=== PATIENT | male | born 1955 | race Caucasian/White ===

== ENCOUNTER 2018-08-03 09:00 | Outpatient (RCR) | payer OTHER, SELFPAY ==
--- NOTE | 2018-05-25 09:33 | HP.PTEVAL_ITS ---
Patient's Visit Information MEG ALEXIS is a 63 year old M referred to Physical Therapy by Bartolo Grewal MD with a diagnosis of . Date of Evaluation: 05/25/18 Physical Therapist: Macy Pierre DPT - Visit Plan Frequency: 2x /Week Duration: 4 Weeks Plan: Ultrasound to shaft of the tibia- exercise for stretching and strengthening for functional mobility - Subjective Findings: Patient reports that he fell on May 07, 2018- fell on uneven surface- went down on his left knee- bruise on the knee- no broken bone- went to [facility]- nothing structural but pt was necessary. Feels the knee is getting better. Pain is located distal to the patella - and does radiaate to the mid velázquez when he is on his feet. Uses one crutch but does go without but uses it intermittently. Moving more towards not moving it. Worst: 2/10 Agg: being up on his feet, getting in/out of the car, movement. Best: 0/10 Eases: ice, rest, Tylenol. Describes the pain as dull and achy. Sleep: not disturbed. 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 Does have slight neuropathy but no changes since the fall. No injections. Had rehab a few years ago on the knee but it got better than. PMHx: HTN Meds: Metaprolol, Vialta. - Objective Posture: FH, RS, Increased kyphosis. Gait: antalgic- decrease stance on the left LE- uses an axillary crutch on the right side. Poor heel/toe pattern. Stairs: asc/desc 8 recip with 2 HR- reports pain with descent. When asc and desc when he picks up his left foot he has increased PF with inversion. HR/TR: HR unable unless UE A and knees bent then can only perform 25% of normal bilaterally. TR: unable. SLS: WS but unable to SLS without UE A. Palpation: tender along shaft of the tibia. ROM: Knee: 0-120 degrees Ankle: PF/Inv/Ev: WFL DF: neutral. Strength: Ankle: 4/5 in available range, Knee: 4+/5, Hip: 4/5 Core: fair. Flex: HS: severe, Gastroc: Severe. Soleus: severe - Goals Goal 1:: Patient will be I with HEP and progression Goal Time Frame: 4-6 Weeks Goal 2:: Patient will ambulate >300 feet with a normalized gait pattern and no AD Goal Time Frame: 4-6 Weeks Goal 3:: Patient will demo moderate flexibility in his gastroc/soleus complex Goal Time Frame: 4-6 Weeks Goal 4:: Patient will report 0/10 pain for 1 week Goal Time Frame: 4-6 Weeks Goal 5:: Patient will asc/desc 8 stairs recip with 1 HR and good control Goal Time Frame: 4-6 Weeks - Rehabilitation Potential Physical Therapy Diagnosis: Patient presents with hypomobility- he has decreased strength, flexibility and muscular endurnace after a fall leading to increase pain with ADL's Rehabilitation Potential: Fair - Anticipated Interventions Patient/Client Instruction: Educate patient on: Benefits of Fitness Program Therapeutic Exercise to Include: Strength training, Endurance training, Agility training, Body mechanics, Postural training, Flexibilty training, Gait and locomotor training, Dynamic Lumbar Stabilization For the Purpose of:: To improve muscle performance and motor function TENS: Yes Cryotherapy (ice pack, ice massage): Yes Thermo therapy (hot pack): Yes Ultrasound (thermal/non thermal): Yes For the Purpose of:: To decrease pain Thank you for the opportunity to evaluate your patient. For Medicare and Medicare HMO plans, please review the plan of care and approve it. It will need to be FAXED BACK to us at [phone] for Medicare purposes. For Medicare only, by signing this I certify the plan of care. Please let me know if there are questions or concerns regarding this plan of care. Physician Signature: Date:____
--- NOTE | 2018-07-03 09:19 | HP.PTEVAL_ITS ---
Patient's Visit Information MEG ALEXIS is a 63 year old M referred to Physical Therapy by Bartolo Grewal MD with a diagnosis of . Date of Evaluation: 05/25/18 Physical Therapist: Macy Pierre DPT - Visit Plan Frequency: 2x /Week Duration: 4 Weeks Plan: Ultrasound to shaft of the tibia- exercise for stretching and strengthening for functional mobility - Subjective Findings: Patient reports that he fell on May 07, 2018- fell on uneven surface- went down on his left knee- bruise on the knee- no broken bone- went to [facility]- nothing structural but pt was necessary. Feels the knee is getting better. Pain is located distal to the patella - and does radiaate to the mid velázquez when he is on his feet. Uses one crutch but does go without but uses it intermittently. Moving more towards not moving it. Worst: 2/10 Agg: being up on his feet, getting in/out of the car, movement. Best: 0/10 Eases: ice, rest, Tylenol. Describes the pain as dull and achy. Sleep: not disturbed. 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 Does have slight neuropathy but no changes since the fall. No injections. Had rehab a few years ago on the knee but it got better than. PMHx: HTN Meds: Metaprolol, Vialta. - Pain Left Knee Pain Intensity (Out of 10): 1 - Objective Posture: FH, RS, Increased kyphosis. Gait: antalgic- decrease stance on the left LE- uses an axillary crutch on the right side. Poor heel/toe pattern. Stairs: asc/desc 8 recip with 2 HR- reports pain with descent. When asc and desc when he picks up his left foot he has increased PF with inversion. HR/TR: HR unable unless UE A and knees bent then can only perform 25% of normal bilaterally. TR: unable. SLS: WS but unable to SLS without UE A. Palpation: tender along shaft of the tibia. ROM: Knee: 0-120 degrees Ankle: PF/Inv/Ev: WFL DF: neutral. Strength: Ankle: 4/5 in available range, Knee: 4+/5, Hip: 4/5 Core: fair. Flex: HS: severe, Gastroc: Severe. Soleus: severe - Goals Goal 1:: Patient will be I with HEP and progression Goal Time Frame: 4-6 Weeks Goal 2:: Patient will ambulate >300 feet with a normalized gait pattern and no AD Goal Time Frame: 4-6 Weeks Goal 3:: Patient will demo moderate flexibility in his gastroc/soleus complex Goal Time Frame: 4-6 Weeks Goal 4:: Patient will report 0/10 pain for 1 week Goal Time Frame: 4-6 Weeks Goal 5:: Patient will asc/desc 8 stairs recip with 1 HR and good control Goal Time Frame: 4-6 Weeks - Rehabilitation Potential Physical Therapy Diagnosis: Patient presents with hypomobility- he has decreased strength, flexibility and muscular endurnace after a fall leading to increase pain with ADL's Rehabilitation Potential: Fair - Anticipated Interventions Patient/Client Instruction: Educate patient on: Benefits of Fitness Program Therapeutic Exercise to Include: Strength training, Endurance training, Agility training, Body mechanics, Postural training, Flexibilty training, Gait and locomotor training, Dynamic Lumbar Stabilization For the Purpose of:: To improve muscle performance and motor function TENS: Yes Cryotherapy (ice pack, ice massage): Yes Thermo therapy (hot pack): Yes Ultrasound (thermal/non thermal): Yes For the Purpose of:: To decrease pain Thank you for the opportunity to evaluate your patient. For Medicare and Medicare HMO plans, please review the plan of care and approve it. It will need to be FAXED BACK to us at [phone] for Medicare purposes. For Medicare only, by signing this I certify the plan of care. Please let me know if there are questions or concerns regarding this plan of care. Physician Signature: Date:
--- NOTE | 2018-07-03 09:19 | HP.PTREVAL ---
Bartolo Grewal MD, It has been my pleasure to treat MEG ALEXIS over the last 6 visits for . Please see the progress note below for an update on the physical therapy plan of care! 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 Uses the crutch intermittently. Objective/Function: Patient was able to complete without incidence. No increse in s/s but did have significant fatigue. Patient has poor balance and very little ankle ROM. Unabel to sit to stand without UE A- reports able to do it off his bed at home but feels its higher. Progress as tolerated Plan Plan: Ultrasound to shaft of the tibia- exercise for stretching and strengthening for functional mobility Goals Goal 1:: Patient will be I with HEP and progression Goal Time Frame: 4-6 Weeks Goal 2:: Patient will ambulate >300 feet with a normalized gait pattern and no AD Goal Time Frame: 4-6 Weeks Goal 3:: Patient will demo moderate flexibility in his gastroc/soleus complex Goal Time Frame: 4-6 Weeks Goal 4:: Patient will report 0/10 pain for 1 week Goal Time Frame: 4-6 Weeks Goal 5:: Patient will asc/desc 8 stairs recip with 1 HR and good control Goal Time Frame: 4-6 Weeks Anticipated Interventions Patient/Client Instruction: Educate patient on: Benefits of Fitness Program Therapeutic Exercise to Include: Strength training, Endurance training, Agility training, Body mechanics, Postural training, Flexibilty training, Gait and locomotor training, Dynamic Lumbar Stabilization For the Purpose of:: To improve muscle performance and motor function TENS: Yes Cryotherapy (ice pack, ice massage): Yes Thermo therapy (hot pack): Yes Ultrasound (thermal/non thermal): Yes For the Purpose of:: To decrease pain Please do not hesitate to contact me at [phone] by phone or if you have questions or concerns regarding this new plan of care! Sincerely, Macy Pierre DPT
--- NOTE | 2018-08-03 10:18 | HP.PTDCSUM_ITS ---
HP - PT D/C Summary It has been my pleasure to treat MEG ALEXIS under orders from Bartolo Grewal MD, for the diagnosis of for a total of 13 visit(s). Discharge Date: Please see the following information for a summary of their discharge status. - Subjective Subjective: Patient reports he has a print out of his exercises and is doing a lot better. He still feels weak when he gets up from sitting for to long but once he is moving that feeling goes away. He plans to get a gym membership at the [facility] - Pain Left Knee Pain Intensity (Out of 10): 1 - Overall Improvement % Improvement: 90 - Objective Objective/Function: Posture: FH, RS, Increased kyphosis- can correct with verbal cues Gait: mildly abnormal gait pattern- decreased stance on the left LE with increased flat foot strike. Stairs: asc/desc 8 recip with 1 HR HR/TR: HR 50% of normal bilaterally. TR: 25% of normal bilaterally. SLS: 15 seconds. Palpation: not tender ROM: Knee: 0-120 degrees Ankle: PF/Inv/Ev: WFL DF: neutral. Strength: Ankle: 4+/5 in available range, Knee: 5/5, Hip: 4+/5 Core: fair. Flex: HS: severe, Gastroc: Severe. Soleus: severe - Goals Goal 1:: Patient will be I with HEP and progression Goal Progress: Goal Met Goal 2:: Patient will ambulate >300 feet with a normalized gait pattern and no AD Goal Progress: Progressing Goal 3:: Patient will demo moderate flexibility in his gastroc/soleus complex Goal Progress: Not Progressing Goal 4:: Patient will report 0/10 pain for 1 week Goal Progress: Progressing Goal 5:: Patient will asc/desc 8 stairs recip with 1 HR and good control Goal Progress: Goal Met - Plan Plan: Discharge to [facility] at [facility] - D/C Information If there are questions or concerns regarding this patient's physical therapy, please feel free to call me at [phone]. Thank you for the referral of this patient. Sincerely, Macy Pierre DPT
== END 2018-08-03 10:21 | disposition home or self-care (01) ==
LOC: PT 09:00
PROVIDERS: Family Provider Family Medicine; PCP Family Medicine; Referring Provider Specialist; Visit Provider Specialist
DX: S80.02XD Contusion of left knee, subsequent encounter (principal); M17.12 Unilateral primary osteoarthritis, left knee
CPT/HCPCS: 97035; 97110; 97161; 97164

== ENCOUNTER → 2021-11-26 | Outpatient (CLI) | payer OTHER, SELFPAY ==
[2021-11-26 11:19] LABS: Absolute Lymphocyte Count 2.12 X10^3/uL (0.83-4.51); Absolute Neutrophil Count 5.2 X10^3/uL (2.0-7.7); Basophil# 0.05 X10^3/uL; Basophil% 0.6 % (0-1); Eosinophil# 0.17 X10^3/uL; Eosinophils% 2.1 % (0-5); Hematocrit 41.5 % (40-54); Hemoglobin 13.5 g/dL (13.0-16.5); Lymphocyte # 2.12 X10^3/ul (0.83-4.51); Lymphocyte % 25.9 % (19-41); Mean Corp Hgb Conc 32.5 g/dL (32-36); Mean Corpuscular Hgb 29.5 pg (27.0-32.0); Mean Corpuscular Volume 90.6 fL (80-94); Mean Platelet Vol. 10.8 fl (6.2-12.0); Monocyte# 0.56 X10^3/uL; Monocyte% 6.9 % (0-10); NRBC Flagged by Analyzer 0 % (0-5); Neutrophil # 5.21 X10^3/uL (2.7-7.7); Neutrophil % 63.8 % (47-70); Platelet Count 278 K/mm3 (150-450); RBC Distribution Width CV 12.7 % (11.6-14.6); Red Blood Count 4.58 M/mm3 (4.6-6.2); White Blood Count 8.2 K/mm3 (4.4-11.0)
[2021-11-26 11:50] LABS: Erythrocyte Sedimentation Rate 14 mm/hr (0-20)
[2021-11-26 11:54] LABS: AST(SGOT) 26 U/L (15-37); Alanine Aminotransfer ALT/SGPT 40 U/L (16-61); Albumin, Serum 3.9 g/dL (3.2-5.0); Alkaline Phosphatase 112 U/L (45-117); Anion Gap 8 (5-15); BUN 18 mg/dL (7-18); Calcium,Total 9.4 mg/dL (8.5-10.1); Chloride 102 mmol/L (98-107); Creatinine, Serum 0.78 mg/dL (0.70-1.30); EST Glomerular Filtration Rate 106 mL/min (>60); Est Glom Filt Rate - Afr Amer 128 mL/min (>60); Globulin 3.9 g/dL (2.2-4.2); Glucose 281 mg/dL (74-106); LDH 192 U/L (87-241); Potassium 4.1 mmol/L (3.5-5.1); Protein, Total 7.8 g/dL (6.4-8.2); Sodium Level 136 mmol/L (136-145)
[2021-11-26 13:42] LABS: Hemoglobin A1c 8.8 % (3.8-5.6)
[2021-11-27 12:08] LABS: Anti-Centromere B Ab <0.2 AI (0.0-0.9); Anti-Chromatin <0.2 AI (0.0-0.9); Anti-Jo <0.2 AI (0.0-0.9); Anti-Scleroderma-70 AB <0.2 AI (0.0-0.9); RNP Ab <0.2 AI (0.0-0.9); SJOGREN'S Anti-SS-A test < 0.2 AI (0.0-0.9); SJOGREN'S Anti-SS-B test < 0.2 AI (0.0-0.9); Smith Ab <0.2 AI (0.0-0.9)
[2021-11-27 16:09] LABS: Endomysial Antibody IgA Negative (Negative)
[2021-11-27 16:21] LABS: Immunoglobulin A 303 mg/dL (61-437); t-Transglutaminase IgA <2 U/mL (0-3)
[2021-11-27 17:29] LABS: Anti-dsDNA Ab <1 IU/mL (0-9)
[2021-12-03 02:07] LABS: Albumin 4.3 g/dL (2.9-4.4); Alpha-1-Globulins 0.2 g/dL (0.0-0.4); Alpha-2-Globulins 0.7 g/dL (0.4-1.0); Cytoplasmic Ab (C-ANCA) <1:20 titer (Neg:<1:20); Gamma Globulin 0.9 g/dL (0.4-1.8); Immunoglobulin A 308 mg/dL (61-437); Immunoglobulin E 250 IU/mL (6-495); Immunoglobulin G 975 mg/dL (603-1613); Immunoglobulin M 151 mg/dL (20-172); PROEL- TOTAL PROTEIN 7.2 g/dL (6.0-8.5)
[2021-12-03 11:53] LABS: Perinuclear Ab (P-ANCA) <1:20 titer (Neg:<1:20)
== END | disposition home or self-care (01) ==
PROVIDERS: Referring Provider Internal Medicine Gastroenterology; Visit Provider Internal Medicine Gastroenterology
DX: K51.90 Ulcerative colitis, unspecified, without complications (principal)
CPT/HCPCS: 36415; 80053; 82784; 82785; 83036; 83516; 83615; 84165; 85025; 85652; 86140; 86225; 86235; 86255; 86256; 86334

== ENCOUNTER 2021-12-17 08:25 | Day surgery (SDC) | payer OTHER, SELFPAY ==
--- NOTE | 2021-12-17 | COLBX_PTH ---
PATIENT: MEG ALEXIS LOC: EN U#:[id number] AGE/SX: 66/M ROOM: RE12/17/[address]: Dr. Jamie Maria DO : 1955 BED: DIS: 12/17/2021 SPEC #: [id number] RECD: 12/17/21 10:50 STATUS: BETTY VALENTE #: [id number] [place]: 12/17/21 00:[address]: Jamie Maria DEPT: SURGICAL PATHOLOGY RECD BY: Fernando Arriaga ENTERED: 12/18/21 07:16 SP TYPE: COLON BX NANDO DR: Dr. Wilmer Alexander DO Tissues: A - Cecum, NOS B - COLON BIOPSY C - Left colon D - Rectum, NOS Procedures: Surgery Specimen Level IV HEADER OPERATION[place] [place] DIAGNOSIS: Ulcerative colitis TISSUE SUBMITTED: A ? Cecum biopsy, B ? Hepatic flexure polyp, C ? Left colon biopsy, D ? Rectum biopsy MICROSCOPIC DIAGNOSIS A. Cecum, biopsy: Fragments of colonic mucosa, no pathologic diagnosis. B. Hepatic flexure polyp, biopsy: Fragments of tubular adenoma. C. Left colon, biopsy: Moderate chronic active colitis. See microscopic description and comment. D. Rectum, biopsy: Focal moderate chronic active colitis. See microscopic description and comment. SJ:rg 12/21/2021 COMMENT C & D. The findings are consistent with inflammatory bowel disease (ulcerative colitis). Correlation with clinical, endoscopic findings and appropriate follow up are necessary. MICROSCOPIC DESCRIPTION Slides are reviewed. C & D. Both specimens show similar morphologic changes. The specimen shows fragments of colonic mucosa with moderate acute and chronic inflammatory cell infiltrate in the lamina propria, cryptitis, crypt abscesses and minimal glandular distortion. Granulomas are not seen. No evidence of dysplasia. Specimen C shows focal changes. GROSS DESCRIPTION A - Received in fixative is one container labeled with the patient's name and designated cecum biopsy. The specimen consists of two irregular fragments of light meeks soft tissue that in aggregate measure 0.5 x 0.2 x 0.1 cm. The specimen is totally submitted in one cassette. B - Received in fixative is one container labeled with the patient's name and designated hepatic flexure polyp. The specimen consists of multiple irregular fragments of light meeks soft tissue that in aggregate measure 1 x 0.4 x 0.1 cm. The specimen is totally submitted in one cassette. C - Received in fixative is one container labeled with the patient's name and designated left colon polyp. The specimen consists of multiple irregular fragments of light meeks soft tissue that in aggregate measure 0.8 x 0.8 x 0.1 cm. The specimen is totally submitted in one cassette. D - Received in fixative is one container labeled with the patient's name and designated rectum biopsy. The specimen consists of multiple irregular fragments of light meeks soft tissue that in aggregate measure 0.6 x 0.3 x 0.1 cm. The specimen is totally submitted in one cassette. / SJ:rg 12/18/2021 TC:2 CPT: 71584 x4
[2021-12-17] MEDS: Lactated Ringers 1,000 ML 15 ML IV (08:30)
--- NOTE | 2021-12-17 08:41 | HP.PCM_ITS ---
History and Physical Date of Admission: 12/17/21 TOAN ALEXIS, is a 66 M who presents to the office today for Initial consult. Toan established with this clinic 11.26.21. Previously seen by Dr. James with a diagnosis of UC in 2017. Sam attempted but experienced SE and was stopped and not started on another medication. Periodic flares approximately once a month with increase of watery and urgent BM and bloody stools and is self- limiting. When not experiencing a flare, he is having looser BM once a day without blood/mucous. Denies abdominal pain, weight loss or appetite changes during a flare or regularly. FH without IBD. Colonoscopy 06.22.[address] James noted right colon to have minimal increase of intraepithelial lymphocytes. Left colon chronic active colitis with inflammatory cell infiltrates in lamina propria, cryptitis, crypt abscess and glandular distortion without dysplasia. ROS Const Constitutional: No anorexia, fatigue, fever(s), weight change or sleep problems Eyes Eyes: No change in vision ENT ENT: No abnormal hearing, difficulty swallowing, mouth lesions, tongue swelling or throat swelling Resp Respiratory: No cough or shortness of breath Cardio Cardiology: No chest pain at rest, chest pain with exertion, shortness of breath or dyspnea on exertion Gastro GI: No difficulty swallowing Genitourinary Male: No difficulty urinating or burning urination Musc Musculoskeletal: No joint pain, joint swelling, muscle weakness or decreased muscle mass Skin Skin: No hair loss in leg, yellowing of the eye, itchy eyes, rash, skin ulcer or skin swelling Neuro Neurology: No abnormal hearing, abnormal movements, confusion, unsteady gait/balance or memory loss Psych Psychiatric: No anxiety, No confusion and No memory loss Endo Endocrine: No fatigue or weight change Aller/Imm Allergy/Immunologic: No itchy eyes, throat swelling or tongue swelling Guillermo/Lymp Hematologic/Lymphatic: No easy bleeding, easy bruising or enlarged lymph nodes Exam Const General: cooperative and comfortable Nutritional Appearance: average body habitus and well nourished [facility] Head: normal to inspection Ears: hearing grossly normal bilaterally Nose: external nose normal Face and sinus: normal facial exam Mouth: oral mucosae normal Throat: posterior oropharynx normal Eyes General: appearance normal, both eyes and all related structures Neck Neck: normal visual inspection Chest Chest palpation & inspection: normal inspection of the chest and normal palpation of entire chest wall Resp Effort & Inspection: normal respiratory effort Auscultation: Bilateral: Clear to Auscultation Cardio Palpation: normal PMI Rate: regular rate Rhythm: regular rhythm GI Inspection: normal to inspection Auscultation: normal bowel sounds Percussion: normal to percussion Palpation: no hepatosplenomegaly Skin General: no rashes or lesions noted Neuro General: patient alert Extrem General: normal to inspection Psych Affect: normal affect Assessment and Plan Assessment and Plan (1) Ulcerative colitis: ?Status:?Chronic ?Plan: Chronic ulcerative colitis by history.? At this time he is not having much bloody stools, but he does complain of diarrhea.? He evaluation of his lower GI tract including intubation of the terminal ileum.? We will also profile including CMP, CBC, LDH, ESR, CRP, HEMALATHA comprehensive, ANCA and stool studies including stool lactoferrin, stool calprotectin, C. difficile, enteric pathogens.? After the full work-up we will determine the stage of ulcerative colitis and the natural history which will help determine the best course of treatment. ? ? ? Orders: Orders Comprehensive Metabolic Profil Today K5. - Ulcerative colitis, unspecified, without complications ? CRP Today K5. - Ulcerative colitis, unspecified, without complications ? LDH Today K5. - Ulcerative colitis, unspecified, without complications ? CBC W/Diff, Automated Today K5. - Ulcerative colitis, unspecified, without complications ? Erythrocyte Sed Rate Today K5. - Ulcerative colitis, unspecified, without complications ? HEMALATHA Comprehensive Panel Today K5. - Ulcerative colitis, unspecified, without complications ? Calprotectin, Stool Today K5. - Ulcerative colitis, unspecified, without complications ? Stool Lactoferrin/WBC Today K5. - Ulcerative colitis, unspecified, without complications ? ANCA Today K5. - Ulcerative colitis, unspecified, without complications ? Celiac Disease Profile Today K5. - Ulcerative colitis, unspecified, without complications ? Immunoglobulins G/A/M/E Today K5 - Ulcerative colitis, unspecified, without complications ? SARA + Protein Elect, Serum Today K5 - Ulcerative colitis, unspecified, without complications ? I have re-examined the patient. There are no clinical changes since date of exam.
[2021-12-17 08:49] VITALS: BP 129/91; PULSE 81; RESP 16; TEMP 36.1; O2SAT 99; BMI 38.0
[2021-12-17 10:15] VITALS: BP 129/91; BP 97/80; PULSE 80; RESP 16; TEMP 37.2; O2SAT 97
--- NOTE | 2021-12-17 10:16 | OP.COLON_ITS ---
Patient Name: Toan Huff Procedure Date: 12/17/2021 9:38 AM Date of : 1955 Age: 66 Procedure: Colonoscopy Indications: Left-sided chronic ulcerative colitis Providers: Jamie Maria DO Referring MD: Jamie Maria DO Medicines: Monitored Anesthesia Care Patient Profile: This is a 66 year old male. Refer to note in patient chart for documentation of history and physical. Last Colonoscopy: 3 years ago. Complications: No immediate complications. Procedure: Pre-Anesthesia Assessment: - Prior to the procedure, a History and Physical was performed, and patient medications and allergies were reviewed. The risks and benefits of the procedure and the sedation options and risks were discussed with the patient. All questions were answered and informed consent was obtained. Patient identification and proposed procedure were verified by the physician in the pre-procedure area. Mental Status Examination: alert and oriented. Airway Examination: normal oropharyngeal airway and neck mobility. Respiratory Examination: clear to auscultation. CV Examination: normal. Prophylactic Antibiotics: The patient does not require prophylactic antibiotics. Prior Anticoagulants: The patient has taken no previous anticoagulant or antiplatelet agents. ASA Grade Assessment: II - A patient with mild systemic disease. After reviewing the risks and benefits, the patient was deemed in satisfactory condition to undergo the procedure. The anesthesia plan was to use monitored anesthesia care (MAC). Immediately prior to administration of medications, the patient was re-assessed for adequacy to receive sedatives. The heart rate, respiratory rate, oxygen saturations, blood pressure, adequacy of pulmonary ventilation, and response to care were monitored throughout the procedure. The physical status of the patient was re-assessed after the procedure. After I obtained informed consent, the scope was passed under direct vision. Throughout the procedure, the patient's blood pressure, pulse, and oxygen saturations were monitored continuously. The adult colonoscope was introduced through the anus and advanced to the terminal ileum. The colonoscopy was performed without difficulty. The patient tolerated the procedure well. The quality of the bowel preparation was good. Scope In: 9:51:03 AM Scope Withdrawal Time 0 hours 13 minutes 15 seconds Scope Out: 10:09:37 AM Total Procedure Duration Time 0 hours 18 minutes 34 seconds Findings: The perianal and digital rectal examinations were normal. A moderate amount of stool was found in the rectum and in the sigmoid colon, precluding visualization. Inflammation was found in a continuous and circumferential pattern from the sigmoid colon to the splenic flexure. This was graded as Vinson Score 2 (moderate, with marked erythema, absent vascular pattern, friability, erosions), and when compared to the previous examination, the findings are unchanged. Biopsies were taken with a cold forceps for histology. Verification of patient identification for the specimen was done. Estimated blood loss was minimal. A 5 mm polyp was found in the hepatic flexure. The polyp was sessile. The polyp was removed with a hot snare. Resection and retrieval were complete. Verification of patient identification for the specimen was done. Estimated blood loss was minimal. Multiple small and large-mouthed diverticula were found in the recto-sigmoid colon, sigmoid colon, descending colon, splenic flexure, transverse colon, hepatic flexure and ascending colon. There was no evidence of diverticular bleeding. Impression: - Stool in the rectum and in the sigmoid colon. - Moderately active (Vinson Score 2) ulcerative colitis, unchanged since the last examination. Biopsied. - One 5 mm polyp at the hepatic flexure, removed with a hot snare. Resected and retrieved. - Severe diverticulosis in the recto-sigmoid colon, in the sigmoid colon, in the descending colon, at the splenic flexure, in the transverse colon, at the hepatic flexure and in the ascending colon. There was no evidence of diverticular bleeding. Recommendation: - Discharge patient to home. - Resume previous diet. - Continue present medications. - Await pathology results. - Repeat colonoscopy in 2 years for surveillance based on pathology results. Procedure Code(s): --- Professional --- 37565, Colonoscopy, flexible; with removal of tumor(s), polyp(s), or other lesion(s) by snare technique 55159, 59, Colonoscopy, flexible; with biopsy, single or multiple CPT copyright 2017 [employer]. All rights reserved. The codes documented in this report are preliminary and upon medical billing coder review may be revised to meet current compliance requirements. Jamie Maria DO 12/17/2021 10:15:59 AM This report has been signed electronically. Number of Addenda: 0 Note Initiated On: 12/17/2021 9:38 AM
--- NOTE | 2021-12-17 10:16 | OP.CCLET_ITS ---
12/17/2021 Wilmer Alexander Do Re : Colonoscopy procedure for Toan Huff Dear Dr. Alexander This procedure was performed on December. My impressions and recommendations are as follows: Impressions : - Stool in the rectum and in the sigmoid colon. - Moderately active (Vinson Score 2) ulcerative colitis, unchanged since the last examination. Biopsied. - One 5 mm polyp at the hepatic flexure, removed with a hot snare. Resected and retrieved. - Severe diverticulosis in the recto-sigmoid colon, in the sigmoid colon, in the descending colon, at the splenic flexure, in the transverse colon, at the hepatic flexure and in the ascending colon. There was no evidence of diverticular bleeding. Recommendations : - Discharge patient to home. - Resume previous diet. - Continue present medications. - Await pathology results. - Repeat colonoscopy in 2 years for surveillance based on pathology results. My findings are described in the full procedure note, which is enclosed. If I can be of further assistance, please feel free to contact me at . Sincerely, Jamie Maria, 12/17/2021 10:15:59 AM This report has been signed electronically.
[2021-12-17 10:20] VITALS: BP 104/85; BP 129/91; PULSE 79; RESP 16; O2SAT 96
[2021-12-17 10:25] VITALS: BP 111/91; BP 129/91; PULSE 79; RESP 16; O2SAT 96
[2021-12-17 10:30] VITALS: BP 122/86; BP 129/91; PULSE 69; RESP 16; TEMP 36.6; O2SAT 98
[2021-12-17 10:56] VITALS: BP 129/91
[2021-12-17 12:10] LABS: Bedside Glucose 184 mg/dL (74-106)
== END 2021-12-17 11:12 | disposition home or self-care (01) ==
LOC: EN 08:25 → AC 08:26
PROVIDERS: Referring Provider Internal Medicine Gastroenterology; Visit Provider Internal Medicine Gastroenterology
PROC: 0DJD8ZZ Inspection of Lower Intestinal Tract, Via Natural or Artificial Opening Endoscopic (ICD-10-PCS; CPT 45378; principal; 2021-12-17 09:25)
DX: D12.3 Benign neoplasm of transverse colon (principal); K51.90 Ulcerative colitis, unspecified, without complications; K57.30 Diverticulosis of large intestine without perforation or abscess without bleeding; R19.7 Diarrhea, unspecified; I10 Essential (primary) hypertension; Z79.899 Other long term (current) drug therapy
CPT/HCPCS: 45380; 45385; 82962; 87493; 87506; 88305; J7120; J2405

== ENCOUNTER → 2022-04-08 | Outpatient (CLI) | payer OTHER, SELFPAY ==
[2022-04-08 17:42] LABS: Erythrocyte Sedimentation Rate 21 mm/hr (0-20)
[2022-04-08 17:45] LABS: CRP 8.02 mg/L (0.0-3.0)
[2022-04-13 14:09] LABS: Cytoplasmic Ab (C-ANCA) <1:20 titer (Neg:<1:20)
[2022-04-13 16:39] LABS: Perinuclear Ab (P-ANCA) <1:20 titer (Neg:<1:20)
== END | disposition home or self-care (01) ==
LOC: LAB 15:34
PROVIDERS: Referring Provider Internal Medicine Gastroenterology; Visit Provider Internal Medicine Gastroenterology
DX: K51.90 Ulcerative colitis, unspecified, without complications (principal)
CPT/HCPCS: 36415; 85652; 86140; 86256

== ENCOUNTER → 2023-08-10 | Outpatient (CLI) | payer MEDICARE, OTHER, SELFPAY ==
[2023-08-10 10:31] LABS: Absolute Lymphocyte Count 1.93 X10^3/uL (0.83-4.51); Absolute Neutrophil Count 7.2 X10^3/uL (2.0-7.7); Basophil# 0.03 X10^3/uL; Basophil% 0.3 % (0-1); Eosinophil# 0.57 X10^3/uL; Eosinophils% 5.5 % (0-5); Hemoglobin 14.1 g/dL (13.0-16.5); Lymphocyte # 1.93 X10^3/ul (0.83-4.51); Lymphocyte % 18.6 % (19-41); Mean Corp Hgb Conc 32.8 g/dL (32-36); Mean Corpuscular Hgb 29.6 pg (27.0-32.0); Mean Corpuscular Volume 90.1 fL (80-94); Mean Platelet Vol. 10.5 fl (6.2-12.0); Monocyte# 0.63 X10^3/uL; Monocyte% 6.1 % (0-10); NRBC Flagged by Analyzer 0 % (0-5); Neutrophil # 7.18 X10^3/uL (2.7-7.7); Platelet Count 283 K/mm3 (150-450); RBC Distribution Width CV 13.2 % (11.6-14.6); RBC Distribution Width SD 43.4 fl (35.1-43.9); Red Blood Count 4.77 M/mm3 (4.6-6.2); White Blood Count 10.4 K/mm3 (4.4-11.0)
[2023-08-10 10:52] LABS: Erythrocyte Sedimentation Rate 14 mm/hr (0-20)
[2023-08-10 11:15] LABS: AST(SGOT) 18 U/L (15-37); Alanine Aminotransfer ALT/SGPT 27 U/L (16-61); Alkaline Phosphatase 106 U/L (45-117); Anion Gap 6 (5-15); BUN 15 mg/dL (7-18); BUN/Creat Ratio 20.9 RATIO (10-20); CRP 5.88 mg/L (0.0-3.0); Calcium,Total 9.5 mg/dL (8.5-10.1); Chloride 105 mmol/L (98-107); Creatinine, Serum 0.72 mg/dL (0.70-1.30); EST Glomerular Filtration Rate 116 mL/min (>60); Est Glom Filt Rate - Afr Amer 141 mL/min (>60); Glucose 161 mg/dL (74-106); Potassium 4.2 mmol/L (3.5-5.1); Sodium Level 136 mmol/L (136-145)
== END | disposition home or self-care (01) ==
LOC: LAB 09:38
PROVIDERS: Referring Provider Internal Medicine Gastroenterology; Visit Provider Internal Medicine Gastroenterology
DX: K51.90 Ulcerative colitis, unspecified, without complications (principal)
CPT/HCPCS: 36415; 80053; 85025; 85652; 86140

== ENCOUNTER → 2024-02-16 | Outpatient (CLI) | payer MEDICARE, OTHER, SELFPAY ==
[2024-02-16 10:38] LABS: Absolute Lymphocyte Count 2.27 X10^3/uL (0.83-4.51); Absolute Neutrophil Count 6.5 X10^3/uL (2.0-7.7); Basophil# 0.05 X10^3/uL; Basophil% 0.5 % (0-1); Eosinophil# 0.39 X10^3/uL; Eosinophils% 3.9 % (0-5); Hematocrit 42.1 % (40-54); Hemoglobin 14.1 g/dL (13.0-16.5); Lymphocyte # 2.27 X10^3/ul (0.83-4.51); Lymphocyte % 22.9 % (19-41); Mean Corp Hgb Conc 33.5 g/dL (32-36); Mean Corpuscular Volume 89.6 fL (80-94); Mean Platelet Vol. 10.8 fl (6.2-12.0); Monocyte# 0.71 X10^3/uL; Monocyte% 7.2 % (0-10); NRBC Flagged by Analyzer 0 % (0-5); Neutrophil # 6.45 X10^3/uL (2.7-7.7); Neutrophil % 64.9 % (47-70); Platelet Count 275 K/mm3 (150-450); RBC Distribution Width CV 12.9 % (11.6-14.6); RBC Distribution Width SD 42.6 fl (35.1-43.9); White Blood Count 9.9 K/mm3 (4.4-11.0)
[2024-02-16 11:09] LABS: CRP 8.38 mg/L (0.0-3.0)
[2024-02-16 11:10] LABS: ALB/GLOB Ratio 1.1 RATIO (0.9-2.4); AST(SGOT) 16 U/L (15-37); Alanine Aminotransfer ALT/SGPT 27 U/L (16-61); Albumin, Serum 3.9 g/dL (3.2-5.0); Alkaline Phosphatase 110 U/L (45-117); Anion Gap 5 (5-15); BUN 13 mg/dL (7-18); BUN/Creat Ratio 17.2 RATIO (10-20); Calcium,Total 9.6 mg/dL (8.5-10.1); Chloride 105 mmol/L (98-107); Creatinine, Serum 0.75 mg/dL (0.70-1.30); EST Glomerular Filtration Rate 110 mL/min (>60); Erythrocyte Sedimentation Rate 10 mm/hr (0-20); Est Glom Filt Rate - Afr Amer 133 mL/min (>60); Globulin 3.6 g/dL (2.2-4.2); Glucose 156 mg/dL (74-106); Potassium 4.1 mmol/L (3.5-5.1); Protein, Total 7.5 g/dL (6.4-8.2); Sodium Level 137 mmol/L (136-145)
== END | disposition home or self-care (01) ==
LOC: LAB 09:34
PROVIDERS: Nurse Practitioner Acute Care; Referring Provider Internal Medicine Gastroenterology; Visit Provider Internal Medicine Gastroenterology
DX: K51.911 Ulcerative colitis, unspecified with rectal bleeding (principal)
CPT/HCPCS: 36415; 80053; 85025; 85652; 86140

== ENCOUNTER → 2024-12-12 | Outpatient (CLI) | payer MEDICARE, OTHER, SELFPAY ==
[2024-12-12 10:42] LABS: Hematocrit 34.9 % (40-54); Hemoglobin 11.8 g/dL (13.0-16.5); Immature Granulocytes Count 0.050 X10^3/uL (0.0-0.0); Mean Corp Hgb Conc 33.8 g/dL (32-36); Mean Corpuscular Volume 87.9 fL (80-94); Mean Platelet Vol. 9.9 fl (6.2-12.0); NRBC Flagged by Analyzer 0 % (0-5); Platelet Count 450 K/mm3 (150-450); RBC Distribution Width CV 13.5 % (11.6-14.6); RBC Distribution Width SD 43.8 fl (35.1-43.9); Red Blood Count 3.97 M/mm3 (4.6-6.2); White Blood Count 13.6 K/mm3 (4.4-11.0)
[2024-12-12 11:42] LABS: AST(SGOT) 19 U/L (<=37); Alanine Aminotransfer ALT/SGPT 14 U/L (<=46); Albumin, Serum 3.4 g/dL (3.4-4.8); Alkaline Phosphatase 113 U/L (40-129); Anion Gap 15 (5-15); BUN 13 mg/dL (4-19); BUN/Creat Ratio 16.2 RATIO (10-20); CRP 46.90 mg/L (0.0-3.0); Calcium,Total 8.4 mg/dL (7.6-11.0); Carbon Dioxide 19.5 mmol/L (21.0-32.0); Chloride 105 mmol/L (98-108); Globulin 3.1 g/dL (2.2-4.2); Glucose 129 mg/dL (70-99); Potassium 3.1 mmol/L (3.3-5.1)
== END | disposition home or self-care (01) ==
PROVIDERS: Referring Provider Student in an Organized Health Care Education/Training Program; Visit Provider Student in an Organized Health Care Education/Training Program
DX: K51.911 Ulcerative colitis, unspecified with rectal bleeding (principal)
CPT/HCPCS: 36415; 80053; 85025; 86140

== ENCOUNTER 2024-12-21 13:52 | Emergency (ER) | payer MEDICARE, OTHER, SELFPAY ==
[2024-12-21 13:53] VITALS: BP 165/137; PULSE 60; RESP 18; TEMP 36.6; O2SAT 97
[2024-12-21 13:54] VITALS: BMI 30.3
--- NOTE | 2024-12-21 15:06 | EKG12_ITS ---
Test Reason : LOW K Blood Pressure : */* mmHG Vent. Rate : 108 BPM Atrial Rate : 102 BPM P-R Int : 176 ms QRS Dur : 132 ms QT Int : 388 ms P-R-T Axes : 44 -41 29 degrees QTcB Int : 519 ms Sinus tachycardia with Premature atrial complexes Left axis deviation Right bundle branch block Abnormal ECG Confirmed by DESHAUN CALLEJAS, SREEKANTH ([id number]), acquisition editor MERRILL MADRIGAL ([id number]) on 12/24/2024 8:09:45 AM Referred By: ANKITA/JONY Confirmed By: SREEKANTH MEADE MD
[2024-12-21 15:52] VITALS: BP 89/62; PULSE 88; RESP 20; O2SAT 98
[2024-12-21] MEDS: 0.9% Normal Saline (1000mL) 1,000 ML 999 ML IV ×2 (16:09→19:03)
--- OUTSIDE RECORDS SUMMARY | 2024-12-21 16:12 | XMS RPT_ITS | CCD ---
Author Organization [facility] Team Providers Care [facility] [employer] Attendant Name Role Phone NORA LEMON DO Attending Unavailable NORA LEMON DO Primary Care Unavailable NORA LEMON DO Admitting Unavailable Mary Pacheco DO Primary Care Provider [phone] Dr. Jamie Maria Attending Provider [phone] Dr. Samantha Gillespie Primary Care Provider [phone] Dr. Jamie Maria Referring Provider [phone] Dr. Jamie Maria Other Provider [phone] Dr. Samantha Gillespie Primary Care Provider [phone] Dr. Samantha Gillespie Referring Provider [phone] Dr. Jamie Maria Attending Provider [phone] SAMANTHA GILLESPIE DO Primary Care Physician SAMANTHA GILLESPIE DO Attending Unavailable SAMANTHA GILLESPIE DO Primary Care Unavailable SAMANTHA GILLESPIE DO Primary Care Unavailable SAMANTHA GILLESPIE DO Attending Unavailable Dr. Samantha Gillespie DO Primary Care Provider [phone] Dr. Samantha Gillespie DO Referring Provider [phone] Marga Serrato Attending Provider [phone] Jewels Mercado Attending Unavailable Samantha Gillespie Primary Care Unavailable Samantha Gillespie Referring Unavailable Jamie Maria Attending Unavailable Jamie Maria Referring Unavailable Jewels Mercado Consulting Unavailable Samantha Gillespie Primary Care Unavailable Jamie Maria Attending Unavailable Samantha Gillespie Primary Care Unavailable Marga June Attending Unavailable Marga June Referring Unavailable Samantha Gillespie Primary Care Unavailable Marga June Attending Unavailable Samantha Gillespie Primary Care Unavailable Samantha Gillespie Referring Unavailable Allergies Allergy Classification Reported Allergen(s) Allergy Type Date of Onset Reaction(s) Facility (4 sources) Penicillins; Translations: [penicillins] Drug Allergy 2 Other: See Comments [facility] (4 sources) Penicillins Propensity to adverse reactions 2 Unknown [facility] (1 source) Penicillins Drug allergy (disorder) 5 [facility] Repository Medications Current Medications Medication Drug Class(es) Dates Sig (Normalized) Sig (Original) albuterol MDI (90 mcg/inh) CFC free inhalation aerosol (3 sources) Start: 03-06-2024 take 2 puff(s) by inhalation every four hours albuterol MDI (90 mcg/inh) CFC free inhalation aerosol 2 puff(s), Inhalation, q4h, # 18 gram(s), 0 Refill(s), Pharmacy: [facility], Chronic cough, 184.5, cm, 02/13/24 8:42:00 EST, Height, kg, 02/13/24 8:42:00 EST, Dosing Weight Start Date: 03/06/24 Status: Ordered Quantity: 18.0 Unit: g Repeat number: 1 Indication: Chronic cough Start: 02-13-2024 take 2 puff(s) by in halation every four hours albuterol MDI (90 mcg/inh) CFC free inhalation aerosol 2 puff(s), Inhalation, q4h, # 18 gram(s), 0 Refill(s), Pharmacy: [facility], Chronic cough, 184.5, cm, 02/13/24 8:42:00 EST, Height, kg, 02/13/24 8:42:00 EST, Dosing Weight Start Date: 02/13/24 Status: Ordered Start: 01-11-2024 take 1 puff(s) by in halation every four hours as needed for wheezing albuterol MDI (90 mcg/inh) CFC free inhalation aerosol 1 puff(s), Inhalation, q4h, PRN as needed for wheezing, # 18 gram(s), 0 Refill(s), Pharmacy: [facility], Acute bronchitis, 183, cm, 01/11/24 8:39:00 EDT, Height, kg, 01/11/24 8:39:00 EDT, Dosing Weight Start Date: 01/11/24 Status: Ordered [place] (3 sources) Start: 12-16-2021 take 1 tablet by wade once daily [place] 250 mg Tablet Active 1000 mg PO DAILY December 16, 2021 12:00am Start: 12-16-2021 take 1000 mg by mouth once tom ly [place] Active 1000 MG PO DAILY December 15, 2021 11:00pm Start: 12-16-2021 take 1000 mg by mouth once tom ly [place] Active 1000 MG PO DAILY December 16, 2021 12:00am ascorbic acid 500 mg oral tablet (5 sources) Vitamin C Start: 12-16-2021 take 1 tablet by mouth once daily Ascorbic Acid (Vitamin C) (Vitamin C) 500 mg Tablet Active 500 mg PO DAILY December 16, 2021 12:00am Start: 11-14-2018 Vitamin C qDay , 0 Refill(s) Start Date: 11/14/18 Status: Ordered Repeat number: 1 Start: 11-14-2018 Vitamin C qDay , 0 Refill(s) Start Date: 11/14/18 Status: Ordered benzonatate 100 mg oral capsule (1 source) Non-narcotic Antitussive Start: 02-13-2024 End: 02-23-2024 take 1 capsule by mouth once Tessalon Perles 100 mg oral capsule Dose : 100 mg = 1 cap(s), Oral, TID, may take up to 200mg per dose if needed, X 10 day(s), # 30 cap(s), 0 Refill(s), 02/23/24 9:26:00 PM EST, Pharmacy: [facility], 184.5, cm, 02/13/24 8:42:00 EST, Height, kg, 02/13/24 8:42:00 EST, Dosing Weight Start Date: 02/13/24 Stop Date: 02/23/24 Status: Ordered cholecalciferol 0.05 mg oral capsule (3 sources) Vitamin D Start: 12-16-2021 take 1 capsule by mouth once daily Cholecalciferol (Vitamin D3) (Vitamin D3) 50 mcg (2,000 unit) Capsule Active 50 ug PO DAILY December 16, 2021 12:00am mesalamine 800 mg delayed release oral tablet (9 sources) Aminosalicylate Start: 03-13-2024 End: 06-07-2024 take 1 tablet by mouth twice daily Mesalamine 800 mg tablet,delayed release (DR/EC) Active 1600 mg PO TWICE A DAY 360 3 June 07, 2024 5:41pm must be taken on empty stomach; no food 1 hr after or 2-3 hrs before dose Start: 01-11-2024 take 2 tablets by mo uth three times daily mesalamine 800 mg oral delayed release tablet take 2 tablets by mouth three times a day ON AN EMPTY STOMACH --N... (REFER TO PRESCRIPTION NOTES). Start Date: 01/11/24 Status: Ordered Repeat number: 1 Start: 03-29-2023 End: 02-16-2024 take 1 tablet by mouth three times daily Mesalamine 800 mg tablet,delayed release (DR/EC) Discontinued 1600 mg PO THREE TIMES A DAY 180 30 5 March 29, 2023 1:00am February 16, 2024 10:09am must be taken on empty stomach; no food 1 hr after or 2-3 hrs before dose Start: 06-01-2022 End: 03-13-2024 take 2 capsules by mouth twice daily Mesalamine 500 mg capsule, extended release Discontinued 1000 mg PO TWICE A DAY 120 2 March 12, 2024 10:55am March 13, 2024 2:45pm 24 hr metoprolol succinate 50 mg extended release oral tablet (8 sources) beta-Adrenergic Wilberto Start: 04-13-2024 Toprol -XL 50 mg oral tablet, extended release Dose : 50 mg = 1 tab(s), Oral, qDay, # 30 tab(s), 0 Refill(s), Pharmacy: [facility], Hypertension, 184.5, cm, 03/29/24 9:38:00 EST, Height, kg, 03/29/24 9:38:00 EST, Dosing Weight Start Date: 04/13/24 Status: Ordered Quantity: 30.0 Unit: tab(s) Repeat number: 1 Indication: Essential (primary) hypertension Start: 02-13-2024 Toprol-XL 50 m g oral tablet, extended release Dose : 50 mg = 1 tab(s), Oral, qDay, # 90 tab(s), 0 Refill(s), Pharmacy: [facility], Hypertension, 184.5, cm, 02/13/24 8:42:00 EST, Height, kg, 02/13/24 8:42:00 EST, Dosing Weight Start Date: 02/13/24 Status: Ordered Start: 11-26-2021 take 1 tablet by wade th once daily Metoprolol Succinate 25 mg tablet extended release 24 hr Active 25 mg PO DAILY November 26, 2021 12:00am metoprolol succi liane XL, long acting, (TOPROL XL) 100 mg ORAL Tb24 Take 50 mg by mouth once daily. 0 Active Comment on above: Take 50 mg by mouth once daily. Mis Medication (1 source) Start: 03-29-2024 Mis Medication Shaklee vitamins, 0 Refill(s), 123 Start Date: 03/29/24 Status: Ordered Repeat number: 1 Multivitamin preparation (4 sources) Start: 12-16-2021 take 1 tablet by mouth once daily Multivitamin Active 1 TABLET PO DAILY December 15, 2021 11:00pm Start: 12-16-2021 take 1 tablet by wade th once daily Multivitamin Active 1 TABLET PO DAILY December 16, 2021 12:00am Start: 11-14-2018 take 1 tablet by waed th once daily Multivitamin Dose = 1 tab(s), Oral, Daily, 0 Refill(s) Start Date: 11/14/18 Status: Ordered Repeat number: 1 Start: 11-14-2018 take 1 tablet by wade th once daily Multivitamin Dose = 1 tab(s), Oral, Daily, 0 Refill(s) Start Date: 11/14/18 Status: Ordered Multivitamin Tablet (1 source) Start: 12-16-2021 Multivitamin T ablet Active 1 {tbl} PO DAILY December 16, 2021 12:00am polyethylene glycol 3350 713651 mg / potassium chloride 2970 mg / sodium bicarbonate 6740 mg / sodium chloride 5860 mg / sodium sulfate 11158 mg powder for oral solution (1 source) Osmotic Laxative Start: 07-14-2021 End: 07-14-2021 peg 3350-Electrolytes (GOLYTELY) 236-22.74-6.74 -5.86 gram suspension Take 4,000 mL by mouth one time only for 1 dose. 1 Each 0 07/14/2021 07/14/2021 Active Comment on above: Take 4,000 mL by wade one time only for 1 dose. Spacer, inhaler (2 sources) Start: 02-13-2024 Spacer, inhale r See Instructions, for use with MDI, # 1 EA, 0 Refill(s), Pharmacy: [facility], Chronic cough, 184.5, cm, 02/13/24 8:42:00 EST, Height, 123, kg, 02/13/24 8:42:00 EST, Dosing Weight Start Date: 02/13/24 Status: Ordered Quantity: 1.0 Unit: EA Repeat number: 1 Indication: Chronic cough Start: 02-13-2024 Spacer, inhale r See Instructions, for use with MDI, # 1 EA, 0 Refill(s), Pharmacy: [facility], Chronic cough, 184.5, cm, 02/13/24 8:42:00 EST, Height, 123, kg, 02/13/24 8:42:00 EST, Dosing Weight Start Date: 02/13/24 Status: Ordered Completed/Discontinued Medications Medication Drug Class(es) Dates Sig (Normalized) Sig (Original) azaTHIOprine 50 mg oral tablet (1 source) Purine Antimetabolite Start: 05-14-2022 End: 06-01-2022 take 1 tablet by mouth once daily Azathioprine 50 mg tablet Discontinued 100 mg PO DAILY 60 1 May 14, 2022 1:00am June 01, 2022 6:34pm budesonide 3 mg delayed release oral capsule (2 sources) Corticosteroid Start: 06-01-2022 End: 02-16-2024 take 3 capsules by mouth once daily Budesonide 3 mg capsule,delayed,ex tend.release Discontinued 9 mg PO DAILY 90 August 10, 2023 12:58pm February 16, 2024 10:08am fluticasone propionate 0.05 mg/actuat metered dose nasal spray (1 source) Corticosteroid Start: 03-29-2024 End: 04-28-2024 take 100 ug nasal route once daily fluticasone 50 mcg/inh NASAL spray 100 mcg Dose = 2 spray(s), Nostril, each, qDay, shake well before using, # 16 gram(s), 0 Refill(s), Pharmacy: [facility], Acute rhinosinusitis, 184.5, cm, 03/29/24 9:38:00 EST, Height, kg, 03/29/24 9:38:00 EST, Dosing Weight Start Date: 03/29/24 Stop Date: 04/28/24 Status: Ordered Quantity: 16.0 Unit: g Repeat number: 1 Indication: Acute sinusitis, unspecified [id number]-dp a-fish oil 1,050 mg(300 mg -675 mg-75 mg) cap (2 sources) egjta-1-vpl-epa- dp a-fish oil 1,050 mg(300 mg -675 mg-75 mg) cap Take by mouth. 0 Active Comment on above: Take by mouth. Zinc (3 sources) Start: 12-16-2021 End: 02-16-2024 take 1 capsule by mouth once daily Zinc 50 mg Capsule Discontinued 50 mg PO DAILY December 16, 2021 12:00am February 16, 2024 10:09am Start: 12-16-2021 take 50 mg by mouth once daily Zinc Active 50 MG PO DAILY December 15, 2021 11:00pm Start: 12-16-2021 take 50 mg by mouth once daily Zinc Active 50 MG PO DAILY December 16, 2021 12:00am Problems Active Problems Problem Classification Problem Date Documented Da te Episodic/Chronic Allergic reactions (2 sources) Id reaction 06-14-2019 Episodic Conditions associated with dizziness or vertigo (2 sources) Vertigo 03-22-2022 Episodic Diabetes mellitus with complications (2 sources) Type II diabetes mellitus uncontrolled 03-25-2021 Chronic Diabetes mellitus without complication (8 sources) Diabetes mellitus; Translations: [Type 2 diabetes mellitus without complications] 12-16-2021 Chronic Comment on above: NO MEDS, DIET CONTRO LLED Disorders of lipid metabolism (2 sources) Mixed hyperlipidemia 11-09-2018 Chronic Essential hypertension (6 sources) Hypertensive disorder; Translations: [Essential (primary) hypertension] 11-26-2021 Chronic Gastrointestinal hemorrhage (1 source) Rectal hemorrhage; Translations: [Hemorrhage of anus and rectum] Episodic Genitourinary symptoms and ill-defined conditions (2 sources) Grade A2 albuminuria 03-22-2022 Episodic Heart valve disorders (2 sources) Aortic valve stenosis 11-09-2018 Chronic Comment on above: Mild Other diseases of veins and lymphatics (2 sources) Peripheral venous insufficiency 11-09-2018 Episodic Other gastrointestinal disorders (1 source) H/O: ulcerative colitis; Translations: [Personal history of other diseases of the digestive system] Episodic Other nervous system disorders (2 sources) Neuropathy 11-09-2018 Chronic Otitis media and related conditions (2 sources) Otitis media 03-22-2022 Episodic Regional enteritis and ulcerative colitis (12 sources) Ulcerative colitis; Translations: [Ulcerative colitis, unspecified with unspecified complications] Onset: 12-12-2024 Chronic Unclassified (8 sources) Patient encounter status 12-17-2020 Past or Other Problems Problem Classification Problem Date Documented Da te Episodic/Chronic Other gastrointestinal disorders (2 sources) Swelling of inguinal region; Translations: [Other intra-abdominal and pelvic swelling, mass and lump] Onset: 05-03-2011 05-03-2011 Episodic Results Test Name Value Interpretation Reference Range Facility CBC W/Diff, Automatedon 12-03 Absolute Lymph 1.89 X10 3/uL Normal 0.83-4.51 [facility] Comment on above: Performed By: #### L 100.0100, L501.6710, L500.4050 #### [facility] [address] [place], [address] Absolute Neut 9.5 X10 3/uL High 2.0-7.7 [facility] Comment on above: Performed By: #### L 100.0100, L501.6710, [id number] #### [facility] [address] [place], [address] Basophils/100 WBC (Bld) 0.5 % Normal 0-1 [facility] Comment on above: Performed By: #### L 100.0100, L501.6710, [id number] #### [facility] [address] [place], [address] Eosinophils/100 WBC (Bld) 8.5 % High 0-5 [facility] Comment on above: Performed By: #### L 100.0100, L501.6710, [id number] #### [facility] [address] [place], [address] Erythrocyte distribution width (RBC) [Ratio] 13.5 % Normal 11.6-14.6 [facility] Comment on above: Performed By: #### L 100.0100, L501.6710, [id number] #### [facility] [address] [place], [address] Hematocrit (Bld) [Volume fraction] 34.9 % Low 40-54 [facility] Comment on above: Performed By: #### L 100.0100, L501.6710, [id number] #### [facility] [address] [place], [address] Hemoglobin (Bld) [Mass/Vol] 11.8 g/dL Low 13.0-16. 5 [facility] Comment on above: Performed By: #### L 100.0100, L501.6710, [id number] #### [facility] [address] [place], [address] IG% 0.400 Normal 0.0-0.9 [facility] Comment on above: Result Comment: IG% - Immature Granulocytes (promyelocytes, myelocytes and metamyelocytes) > 1% indicates that a LEFT SHIFT is Present. Performed By: #### L 100.0100, L501.6710, [id number] #### [facility] [address] [place], [address] Lymphocytes/100 WBC (Bld) 13.9 % Low 19-41 [facility] Comment on above: Performed By: #### L 100.0100, L501.6710, [id number] #### [facility] [address] [place], [address] MCH (RBC) [Entitic mass] 29.7 pg Normal 27.0-32.0 [facility] Comment on above: Performed By: #### L 100.0100, L501.6710, [id number] #### [facility] [address] [place], [address] MCHC (RBC) [Mass/Vol] 33.8 g/dL Normal 32-36 [facility] Comment on above: Performed By: #### L 100.0100, L501.6710, [id number] #### [facility] [address] [place], [address] MCV (RBC) [Entitic vol] 87.9 fL Normal 80-94 [facility] Comment on above: Performed By: #### L 100.0100, L501.6710, [id number] #### [facility] [address] [place], [address] Monocytes/100 WBC (Bld) 7.2 % Normal 0-10 [facility] Comment on above: Performed By: #### L 100.0100, L501.6710, [id number] #### [facility] [address] [place], [address] Neutrophils/100 WBC (Bld) 69.5 % Normal 47-70 [facility] Comment on above: Performed By: #### L 100.0100, L501.6710, [id number] #### [facility] [address] [place], [address] Nucleated RBC (Bld) [#/Vol] 0 10*3/uL Normal 0-5 [facility] Comment on above: Performed By: #### L 100.0100, L501.6710, [id number] #### [facility] [address] [place], [address] Platelet mean volume (Bld) [Entitic vol] 9.9 fL Normal 6.2-12.0 [facility] Comment on above: Performed By: #### L 100.0100, L501.6710, [id number] #### [facility] [address] [place], [address] Platelets (Bld) [#/Vol] 450 10*3/uL Normal 150-450 [facility] Comment on above: Performed By: #### L 100.0100, L501.6710, [id number] #### [facility] [address] [place], [address] RBC (Bld) [#/Vol] 3.97 10*6/uL Low 4.6-6.2 [facility] Comment on above: Performed By: #### L 100.0100, L501.6710, [id number] #### [facility] [address] [place], [address] RDW SD 43.8 fl Normal 35.1-43.9 [facility] Comment on above: Performed By: #### L 100.0100, L501.6710, [id number] #### [facility] [address] [place], [address] WBC (Bld) [#/Vol] 13.6 10*3/uL High 4.4-11.0 [facility] Comment on above: Performed By: #### L 100.0100, L501.6710, [id number] #### [facility] [address] [place], [address] CRPon 12-12-2024 C-REACTIVE PROT 46.90 mg/L High 0.0-3.0 [facility] Comment on above: Performed By: #### L 100.0100, L501.6710, [id number] #### [facility] [address] [place], [address] Comprehensive Metabolic Prof ilon 12-12-2024 Albumin [Mass/Vol] 3.4 g/dL Normal 3.4-4.8 [facility] Comment on above: Performed By: #### L 100.0100, L501.6710, [id number] #### [facility] [address] [place], [address] Albumin/Globulin [Mass ratio] 1.1 {ratio} Normal 0.9-2.4 [facility] Comment on above: Performed By: #### L 100.0100, L501.6710, [id number] #### [facility] [address] [place], [address] ALK PHOS 113 U/L Normal 40-129 [facility] Comment on above: Performed By: #### L 100.0100, L501.6710, [id number] #### [facility] [address] [place], [address] ALT [Catalytic activity/Vol] 14 U/L Normal <=46 [facility] Comment on above: Performed By: #### L 100.0100, L501.6710, [id number] #### [facility] [address] [place], [address] AST [Catalytic activity/Vol] 19 U/L Normal <=37 [facility] Comment on above: Performed By: #### L 100.0100, L501.6710, [id number] #### [facility] [address] [place], [address] Bilirubin [Mass/Vol] 1.21 mg/dL Normal 0.00-1.30 [facility] Comment on above: Performed By: #### L 100.0100, L501.6710, [id number] #### [facility] [address] [place], [address] BUN/CRE 16.2 RATIO Normal 10-20 [facility] Comment on above: Performed By: #### L 100.0100, L501.6710, [id number] #### [facility] [address] [place], [address] Calcium [Mass/Vol] 8.4 mg/dL Normal 7.6-11.0 [facility] Comment on above: Performed By: #### L 100.0100, L501.6710, [id number] #### [facility] [address] [place], [address] Chloride [Moles/Vol] 105 mmol/L Normal 98-108 [facility] Comment on above: Performed By: #### L 100.0100, L501.6710, [id number] #### [facility] [address] [place], [address] CO2 [Moles/Vol] 19.5 mmol/L Low 21.0-32.0 [facility] Comment on above: Performed By: #### L 100.0100, L501.6710, L500.4050 #### [facility] [address] [place], [address] Creatinine [Mass/Vol] 0.83 mg/dL Normal 0.70-1.20 [facility] Comment on above: Performed By: #### L 100.0100, L501.6710, [id number] #### [facility] [address] [place], [address] GAP 15 Normal 5-15 [facility] Comment on above: Performed By: #### L 100.0100, L501.6710, L500.4050 #### [facility] [address] [place], [address] GFR/1.73 sq M.predicted among non-blacks MDRD (S/P/Bld) [Vol rate/Area] 96 mL/min/{1.73_m2} Normal >60 [facility] Comment on above: Result Comment: mL/m in/1.73m2 CKD-EPI Creatinine Equation (2020) Performed By: #### L 100.0100, L501.6710, L500.4050 #### [facility] [address] [place], [address] Globulin (S) [Mass/Vol] 3.1 g/dL Normal 2.2-4.2 [facility] Comment on above: Performed By: #### L 100.0100, L501.6710, L500.4050 #### [facility] [address] [place], [address] Glucose [Mass/Vol] 129 mg/dL High 70-99 [facility] Comment on above: Performed By: #### L 100.0100, L501.6710, [id number] #### [facility] [address] [place], [address] Potassium [Moles/Vol] 3.1 mmol/L Low 3.3-5.1 [facility] Comment on above: Performed By: #### L 100.0100, L501.6710, L500.4050 #### [facility] [address] [place], [address] Sodium [Moles/Vol] 139 mmol/L Normal 133-145 [facility] Comment on above: Performed By: #### L 100.0100, L501.6710, [id number] #### [facility] [address] [place], [address] T PROT 6.5 g/dL Normal 5.9-8.4 [facility] Comment on above: Performed By: #### L 100.0100, L501.6710, L500.4050 #### [facility] [address] [place], [address] Urea nitrogen [Mass/Vol] 13 mg/dL Normal 4-19 [facility] Comment on above: Performed By: #### L 100.0100, L501.6710, L500.4050 #### [facility] [address] [place], [address] Gastroenterology Visit Repor ton 12-12-2024 Gastroenterology Visit Report [facility] [address] [place] [address] OFFICE VISIT Date of Service: 12/12/24 MR#: [id number] Acct: [id number] Name: MEG HUFF Rep #: [id number] : 1955 Provider: NUZHAT Cook Age/Sex: 69/M Location: [facility] [place] Status: Signed Intake Vital Signs 12/17/21 08:49 12/12/24 09:27 Height 6 ft 1 in 6 ft 1 in Weight: 246 lb BMI 32.4 Intake Visit Reasons: UC Flare Up Chief Complaint: UC Allergies Penicillins Adverse Reaction (Intermediate, Verified 12/12/24 09:05) Unknown Medications ???Medication ???Instructions ???Recorded ???Confirmed ???Type metoprolol succinate 25 mg 25 mg PO DAILY 11/26/21 12/12/24 H istory tablet,extended release 24 hr alfalfa 250 mg tablet 1,000 mg PO DAILY 12/16/21 5 History ascorbic acid (vitamin C) 500 mg 500 mg PO DAILY 12/16/21 12/12/24 History tablet (Vitamin C) cholecalciferol (vitamin D3) 50 50 mcg PO DAILY 12/16/21 12/12/24 History mcg (2,000 unit) capsule (Vitamin D3) multivitamin 1 tab PO DAILY 12/16/21 12/12/24 H istory mesalamine 800 mg tablet,delayed 1,600 mg (2 x 800 mg) PO BID #360 06/07/24 12/12/24 Rx release tabs Have you fallen in the past year?: No Nurse's Note: Pt reports he has had a UC flare that started 4 weeks ago. Reports lower abdominal pain, diarrhea and some blood in stool. [facility] [facility] Medical History Wears glasses Discoloration of skin Back pain History of diverticulitis Non-smoker Chronic cough Hypertension History of irregular heartbeat Diabetes mellitus Surgical History Hx of eye surgery Hx of colonoscopy Social History Smoking Status: Never smoker HPI HPI Chief Complaint: UC Details: MEG HUFF, is a 69 M who presents to the office today for follow-up. Colonoscopy 2021; Stool in the rectum and in the sigmoid colon. - Moderately active (Vinson Score 2) ulcerative colitis, unchanged since the last examination. Biopsied. - One 5 mm polyp at the hepatic flexure, removed with a hot snare. Resected and retrieved. - Severe diverticulosis in the recto-sigmoid colon, in the sigmoid colon, in the descending colon, at the splenic flexure, in the transverse colon, at the hepatic flexure and in the ascending colon. There was no evidence of diverticular bleeding. Last office visit with Jewels Mercado NP 02.16.24. Patient with a past medical history of ulcerative colitis. Patient having 1-2 bowel movements that are formed per day. Patient currently taking mesalamine. Last colonoscopy was in December 2021 with active colitis in the rectum. OV 9.10.25 patient endorsing a flare in his UC over the past 4 weeks. He is having loose stool up to 4 times a day. He notices blood in his stool and in the bowl when he has a bowel movement. He has lower abdominal pain. He has cut out any in inflammatory foods in his diet. This has led to about a 10 pound weight loss over the past 4 weeks. Patient endorsing that he has never weighed this much. He does have an appetite. He continues with mesalamine. ROS Const Constitutional: Positive for fatigue and weight change; No fever(s) ENT ENT: No difficulty swallowing Gastro GI: Positive for abdominal pain, diarrhea and Blood in stool; No belching, bloating, change in bowel habits, change in stool character, coffee ground emesis, constipation, cramping, heartburn, difficulty swallowing, feeling full early, excessive flatus, incontinent of stools, Vomiting blood/hematemesis, loose stools, Black,tarry stools, nausea/dyspepsia, pain with swallowing, vomiting or other Musc Musculoskeletal: No joint pain Skin Skin: No yellowing of the eye or itchy eyes Neuro Neurology: Positive for tremor(s) Psych Psychiatric: No anxiety and No depression Endo Endocrine: Positive for fatigue and weight change Aller/Imm Allergy/Immunologic: No itchy eyes Guillermo/Lymp Hematologic/Lymphatic : No easy bleeding or easy bruising Exam Const General: cooperative and comfortable Nutritional Appearance: average body habitus Orientation: alert HENMT Head: normal to inspection Eyes General: appearance normal, both eyes and all related structures Neck Neck: normal visual inspection Chest Chest palpation inspection: normal inspection of the chest Resp Effort Inspection: normal respiratory effort Cardio Rate: regular rate Rhythm: regular rhythm GI Inspection: normal to inspection Auscultation: normal bowel sounds Palpation: soft, not firm, no guarding and nontender Assessment and Plan Assessment and Plan (1) Ulcerative colitis: Status: Chronic Qualifier (more content not included)... Normal [facility] .Auto Diffon 05-01-2024 Basophil, Absolute 0.0 10 3/mcL Normal 0.0-0.2 [facility] Comment on above: Performed By: #### L IPID, CMP, TSHR, A1C, GFR, CBC, PSA, ADIFF, ANEU #### [address] [address] Basophils/100 WBC (Bld) 0.4 % Normal 0.0-2.5 [facility] Comment on above: Performed By: #### L IPID, CMP, TSHR, A1C, GFR, CBC, PSA, ADIFF, ANEU #### [address] [address] Eosinophil, Absolute 0.3 10 3/mcL Normal 0.0-0.7 [facility] Comment on above: Performed By: #### L IPID, CMP, TSHR, A1C, GFR, CBC, PSA, ADIFF, ANEU #### [address] [address] Eosinophils/100 WBC (Bld) 2.8 % Normal 0.0-7.0 [facility] Comment on above: Performed By: #### L IPID, CMP, TSHR, A1C, GFR, CBC, PSA, ADIFF, ANEU #### [address] [address] Lymphocyte, Absolute 2.4 10 3/mcL Normal 0.9-4.3 [facility] Comment on above: Performed By: #### L IPID, CMP, TSHR, A1C, GFR, CBC, PSA, ADIFF, ANEU #### [address] [address] Lymphocytes/100 WBC (Bld) 22.5 % Normal 20.0-40.0 [facility] Comment on above: Performed By: #### L IPID, CMP, TSHR, A1C, GFR, CBC, PSA, ADIFF, ANEU #### [address] [address] Monocyte, Absolute 0.8 10 3/mcL Normal 0.1-1.4 [facility] Comment on above: Performed By: #### L IPID, CMP, TSHR, A1C, GFR, CBC, PSA, ADIFF, ANEU #### [address] [address] Monocytes/100 WBC (Bld) 7.1 % Normal 2.0-13.0 [facility] Comment on above: Performed By: #### L IPID, CMP, TSHR, A1C, GFR, CBC, PSA, ADIFF, ANEU #### [address] [address] Neutrophils/100 WBC (Bld) 67.2 % Normal 50.0-75.0 [facility] Comment on above: Performed By: #### L IPID, CMP, TSHR, A1C, GFR, CBC, PSA, ADIFF, ANEU #### [address] [address] .GFRon 05-01-2024 GFR 135 ml/min/1.73sqm Normal [facility] Comment on above: Result Comment: GFR Population mean for , [...] 15 mL/min/1.73 square meters Performed By: #### L IPID, CMP, TSHR, A1C, GFR, CBC, PSA, ADIFF, ANEU #### [address] [address] GFR Non- 111 ml/min/1.73sqm Normal [facility] Comment on above: Result Comment: GFR Population mean for , [...] 15 mL/min/1.73 square meters Performed By: #### L IPID, CMP, TSHR, A1C, GFR, CBC, PSA, ADIFF, ANEU #### [address] [address] .NEUABSon 05-01-2024 Neutrophil, Absolute 7.3 10 3/mcL Normal 2.3-8.1 [facility] Comment on above: Performed By: #### L IPID, CMP, TSHR, A1C, GFR, CBC, PSA, ADIFF, ANEU #### [address] [address] A1Con 05-01-2024 Glucose [Mass/Vol] 180 mg/dL Normal [facility] Comment on above: Result Comment: Jaky mated Average Glucose calculated by equation ((28.7xA1C)-46.7) Estimated average glucose (eAG) is a calculated value from Hemoglobin A1C and is termite control representative of the average blood glucose level in the last 2-3 month period. Normal range: less than 114 mg/dL Performed By: #### L IPID, CMP, TSHR, A1C, GFR, CBC, PSA, ADIFF, ANEU #### [place] [address] HbA1c (Bld) [Mass fraction] 7.9 % High 4.3-6.4 [facility] Comment on above: Performed By: #### L IPID, CMP, TSHR, A1C, GFR, CBC, PSA, ADIFF, ANEU #### [place] [address] CBCon 05-01-2024 Erythrocyte distribution width (RBC) [Ratio] 13.7 % Normal 11.5-15.5 [facility] Comment on above: Performed By: #### L IPID, CMP, TSHR, A1C, GFR, CBC, PSA, ADIFF, ANEU #### [place] [address] Hematocrit (Bld) [Volume fraction] 40.3 % Normal 40.0-52.0 [facility] Comment on above: Performed By: #### L IPID, CMP, TSHR, A1C, GFR, CBC, PSA, ADIFF, ANEU #### [place] [address] Hgb 13.9 G/dL Normal 13.0-17.5 [facility] Comment on above: Performed By: #### L IPID, CMP, TSHR, A1C, GFR, CBC, PSA, ADIFF, ANEU #### [place] [address] MCH (RBC) [Entitic mass] 30.3 pg Normal 27.0-33.0 [facility] Comment on above: Performed By: #### L IPID, CMP, TSHR, A1C, GFR, CBC, PSA, ADIFF, ANEU #### [address] [address] MCHC 34.5 G/dL Normal 32.0-36.0 [facility] Comment on above: Performed By: #### L IPID, CMP, TSHR, A1C, GFR, CBC, PSA, ADIFF, ANEU #### [address] [address] MCV (RBC) [Entitic vol] 87.7 fL Normal 81.0-100.0 [facility] Comment on above: Performed By: #### L IPID, CMP, TSHR, A1C, GFR, CBC, PSA, ADIFF, ANEU #### [address] [address] Platelet 268 10 3/mcL Normal 150-450 [facility] Comment on above: Performed By: #### L IPID, CMP, TSHR, A1C, GFR, CBC, PSA, ADIFF, ANEU #### [address] [address] Platelet mean volume (Bld) [Entitic vol] 8.0 fL Normal 6.4-10.5 [facility] Comment on above: Performed By: #### L IPID, CMP, TSHR, A1C, GFR, CBC, PSA, ADIFF, ANEU #### [address] [address] RBC 4.60 10 6/mcL Normal 4.50-6.00 [facility] Comment on above: Performed By: #### L IPID, CMP, TSHR, A1C, GFR, CBC, PSA, ADIFF, ANEU #### [address] [address] WBC 10.8 10 3/mcL Normal 4.5-10.8 [facility] Comment on above: Performed By: #### L IPID, CMP, TSHR, A1C, GFR, CBC, PSA, ADIFF, ANEU #### [address] [address] CMPon 05-01-2024 Albumin Level 3.8 G/dL Normal 3.4-4.8 [facility] Comment on above: Performed By: #### L IPID, CMP, TSHR, A1C, GFR, CBC, PSA, ADIFF, ANEU #### [address] [address] Albumin/Globulin [Mass ratio] 1.0 {ratio} Low 1.1-2.5 [facility] Comment on above: Performed By: #### L IPID, CMP, TSHR, A1C, GFR, CBC, PSA, ADIFF, ANEU #### [address] [address] ALP [Catalytic activity/Vol] 102 U/L Normal 40-135 [facility] Comment on above: Performed By: #### L IPID, CMP, TSHR, A1C, GFR, CBC, PSA, ADIFF, ANEU #### [address] [address] ALT [Catalytic activity/Vol] 31 U/L Normal 16-63 [facility] Comment on above: Performed By: #### L IPID, CMP, TSHR, A1C, GFR, CBC, PSA, ADIFF, ANEU #### [address] [address] AST [Catalytic activity/Vol] 16 U/L Normal 10-40 [facility] Comment on above: Performed By: #### L IPID, CMP, TSHR, A1C, GFR, CBC, PSA, ADIFF, ANEU #### [address] [address] Bili Total 0.9 mg/dL Normal 0.2-1.0 [facility] Comment on above: Result Comment: Use of this assay is not recommended for patients undergoing treatment with eltrombopag due to the potential for falsely elevated results. Performed By: #### L IPID, CMP, TSHR, A1C, GFR, CBC, PSA, ADIFF, ANEU #### [address] [address] BUN/Creatinine Ratio 21 ratio Normal 7-27 [facility] Comment on above: Performed By: #### L IPID, CMP, TSHR, A1C, GFR, CBC, PSA, ADIFF, ANEU #### [address] [address] Calcium [Mass/Vol] 9.4 mg/dL Normal 8.4-10.2 [facility] Comment on above: Performed By: #### L IPID, CMP, TSHR, A1C, GFR, CBC, PSA, ADIFF, ANEU #### [place] [address] Chloride [Moles/Vol] 102 mmol/L Normal 98-107 [facility] Comment on above: Performed By: #### L IPID, CMP, TSHR, A1C, GFR, CBC, PSA, ADIFF, ANEU #### [place] [address] CO2 [Moles/Vol] 26 mmol/L Normal 23-31 [facility] Comment on above: Performed By: #### L IPID, CMP, TSHR, A1C, GFR, CBC, PSA, ADIFF, ANEU #### [place] [address] Creatinine [Mass/Vol] 0.71 mg/dL Normal 0.70-1.[address] [facility] Comment on above: Result Comment: Test ing performed on Siemens Dimension EXL analyzer using a modified kinetic Elli technique. Performed By: #### L IPID, CMP, TSHR, A1C, GFR, CBC, PSA, ADIFF, ANEU #### [place] [address] Electrolyte Balance 10.0 mEq/L Normal 4.0-15.0 [facility] Comment on above: Performed By: #### L IPID, CMP, TSHR, A1C, GFR, CBC, PSA, ADIFF, ANEU #### [place] [address] Globulin 4.0 G/dL Normal [facility] Comment on above: Performed By: #### L IPID, CMP, TSHR, A1C, GFR, CBC, PSA, ADIFF, ANEU #### [place] [address] Glucose [Mass/Vol] 165 mg/dL High 80-115 [facility] Comment on above: Performed By: #### L IPID, CMP, TSHR, A1C, GFR, CBC, PSA, ADIFF, ANEU #### [address] [address] Potassium [Moles/Vol] 4.1 mmol/L Normal 3.5-5.[address] [facility] Comment on above: Performed By: #### L IPID, CMP, TSHR, A1C, GFR, CBC, PSA, ADIFF, ANEU #### [address] [address] Sodium [Moles/Vol] 138 mmol/L Normal 136-145 [facility] Comment on above: Performed By: #### L IPID, CMP, TSHR, A1C, GFR, CBC, PSA, ADIFF, ANEU #### [address] [address] Total Protein 7.8 G/dL Normal 6.4-8.2 [facility] Comment on above: Performed By: #### L IPID, CMP, TSHR, A1C, GFR, CBC, PSA, ADIFF, ANEU #### [address] [address] Urea nitrogen [Mass/Vol] 15 mg/dL Normal 7-18 [facility] Comment on above: Performed By: #### L IPID, CMP, TSHR, A1C, GFR, CBC, PSA, ADIFF, ANEU #### [address] [address] LABORATORYOrdered By: SYSTEM SYSTEM on 05-01-2024 Albumin BCP dye [Mass/Vol] 3.8 G/dL Normal 3 .4 - 4.8 G/dL AO ADM SS Albumin/Globulin [Mass ratio] 1.0 {ratio} Low 1.1 - 2.5 ratio AO ADM SS ALP [Catalytic activity/Vol] 102 U/L Normal 40 - 135 U/L AO ADM SS ALT With P-5'-P [Catalytic activity/Vol] 31 U/L Normal 16 - 63 U/L AO ADM SS AST With P-5'-P [Catalytic activity/Vol] 16 U/L Normal 10 - 40 U/L AO ADM SS Basophils (Bld) [#/Vol] 0.0 103/mcL Normal 0.0 - 0.2 10^3/mcL AO Workflow SS Basophils/100 WBC (Bld) 0.4 % Normal 0.0 - 2.5 % AO Workflow SS Bilirubin [Mass/Vol] 0.9 mg/dL Normal 0.2 - 1 .0 mg/dL AO ADM SS Comment on above: Interpretive Data: U se of this assay is not recommended for patients undergoing treatment with eltrombopag due to the potential for falsely elevated results. Calcium [Mass/Vol] 9.4 mg/dL Normal 8.4 - 10. 2 mg/dL AO ADM SS Chloride [Moles/Vol] 102 mmol/L Normal 98 - 10 7 mmol/L AO ADM SS CO2 [Moles/Vol] 26 mmol/L Normal 23 - 31 mmol/L AO ADM SS Creatinine [Mass/Vol] 0.71 mg/dL Normal 0.70 - 1.30 mg/dL AO ADM SS Comment on above: Interpretive Data: T esting performed on Siemens Dimension EXL analyzer using a modified kinetic Elli technique. Electrolyte Balance 10.0 mEq/L Normal 4.0 - 15 .0 mEq/L AO ADM SS Eosinophil, Absolute 0.3 103/mcL Normal 0.0 - 0 .7 10^3/mcL AO Workflow SS Eosinophils/100 WBC (Bld) 2.8 % Normal 0. 0 - 7.0 % AO Workflow SS Erythrocyte distribution width (RBC) [Ratio] 13.7 % Normal 11.5 - 15.5 % AO Workflow SS GFR/1.73 sq M.predicted among blacks MDRD (S/P/Bld) [Vol rate/Area] 135 ml/min/1.73sqm Invalid Interpretation Code AO Chemistry S Comment on above: Interpretive Data: GFR Population mean for , Non- Americans Ages 20-29 = 116 mL/min/1.73 sq.m. Ages 30-39 = 107 mL/min/1.73 sq.m. Ages 40-49 = 99 mL/min/1.73 sq.m. Ages 50-59 = 93 mL/min/1.73 sq.m. Ages 60-69 = 85 mL/min/1.73 sq.m. Ages 70+ = 75 mL/min/1.73 sq.m. Chronic Kidney Disease: Less than 60 mL/min/1.73 square meters End Stage Renal Disease: Less than 15 mL/min/1.73 square meters GFR/1.73 sq M.predicted among non-blacks MDRD (S/P/Bld) [Vol rate/Area] 111 ml/min/1.73sqm Invalid Interpretation Code AO Chemistry S Comment on above: Interpretive Data: GFR Population mean for , Non- Americans Ages 20-29 = 116 mL/min/1.73 sq.m. Ages 30-39 = 107 mL/min/1.73 sq.m. Ages 40-49 = 99 mL/min/1.73 sq.m. Ages 50-59 = 93 mL/min/1.73 sq.m. Ages 60-69 = 85 mL/min/1.73 sq.m. Ages 70+ = 75 mL/min/1.73 sq.m. Chronic Kidney Disease: Less than 60 mL/min/1.73 square meters End Stage Renal Disease: Less than 15 mL/min/1.73 square meters Globulin 4.0 G/dL Invalid Interpretation Code AO ADM SS Glucose [Mass/Vol] 180 mg/dL Invalid Interpretation Code AO Chemistry S Comment on above: Interpretive Data: E stimated average glucose (eAG) is a calculated value from Hemoglobin A1C and is termite control representative of the average blood glucose level in the last 2-3 month period. Normal range: less than 114 mg/dL Glucose [Mass/Vol] 165 mg/dL High 80 - 115 mg/dL AO ADM SS HbA1c (Bld) [Mass fraction] 7.9 % High 4.3 - 6.4 % AO ADM SS Hematocrit (Bld) [Volume fraction] 40.3 % Normal 40.0 - 52.0 % AO Workflow SS Hemoglobin (Bld) [Mass/Vol] 13.9 G/dL Normal 13.0 - 17.5 G/dL AO Workflow SS Lymphocytes (Bld) [#/Vol] 2.4 103/mcL Normal 0. 9 - 4.3 10^3/mcL AO Workflow SS Lymphocytes/100 WBC (Bld) 22.5 % Normal 20 .0 - 40.0 % AO Workflow SS MCH (RBC) [Entitic mass] 30.3 pg Normal 27. 0 - 33.0 pg AO Workflow SS MCHC 34.5 G/dL Normal 32.0 - 36.0 G/dL AO Workflow SS MCV (RBC) [Entitic vol] 87.7 fL Normal 81.0 - 100.0 fL AO Workflow SS Monocytes (Bld) [#/Vol] 0.8 103/mcL Normal 0.1 - 1.4 10^3/mcL AO Workflow SS Monocytes/100 WBC (Bld) 7.1 % Normal 2.0 - 13.0 % AO Workflow SS Neutrophils (Bld) [#/Vol] 7.3 103/mcL Normal 2. 3 - 8.1 10^3/mcL AO Workflow SS Neutrophils/100 WBC (Bld) 67.2 % Normal 50 .0 - 75.0 % AO Workflow SS Platelet mean volume (Bld) [Entitic vol] 8.0 fL Normal 6.4 - 10.5 fL AO Workflow SS Platelets (Bld) [#/Vol] 268 103/mcL Normal 150 - 450 10^3/mcL AO Workflow SS Potassium [Moles/Vol] 4.1 mmol/L Normal 3.5 - 5.1 mmol/L AO ADM SS Prostate specific Ag [Mass/Vol] 3.45 ng/mL Normal 0.00 - 4.00 ng/mL AO ADM SS Protein [Mass/Vol] 7.8 G/dL Normal 6.4 - 8.2 G/dL AO ADM SS RBC (Bld) [#/Vol] 4.60 106/mcL Normal 4.50 - 6.00 10^6/mcL AO Workflow SS Sodium [Moles/Vol] 138 mmol/L Normal 136 - 145 mmol/L AO ADM SS TSH Qn 1.56 m[IU]/L Normal 0.36 - 3.74 mcIU/mL AO ADM SS Urea nitrogen [Mass/Vol] 15 mg/dL Normal 7 - 18 mg/dL AO ADM SS Urea nitrogen/Creatinine [Mass ratio] 21 ratio Normal 7 - 27 ratio AO ADM SS WBC (Bld) [#/Vol] 10.8 103/mcL Normal 4.5 - 10.8 10^3/mcL AO Workflow SS LABORATORYOrdered By: Tone Gonzales on 05-01-2024 Cholesterol [Mass/Vol] 160 mg/dL Normal 0 - 2 00 mg/dL AO ADM SS Comment on above: Interpretive Data: C holesterol Reference Interval: Less than 200 Desirable 200-239 Borderline high risk 240 and above High risk Cholesterol in HDL [Mass/Vol] 43 mg/dL Normal 40 - 60 mg/dL AO ADM SS Cholesterol in LDL [Mass/Vol] 97 mg/dL Normal 0 - 130 mg/dL AO ADM SS Triglyceride [Mass/Vol] 99 mg/dL Normal 0 - 150 mg/dL AO ADM SS Comment on above: Interpretive Data: T riglyceride Reference Interval: Less than 150 Normal 150-199 Borderline high risk 200-499 High risk 500 or higher Very high risk LIPIDon 05-01-2024 Cholesterol [Mass/Vol] 160 mg/dL Normal 0-200 [facility] Comment on above: Result Comment: Chol esterol Reference Interval: Less than 200 Desirable 200-239 Borderline high risk 240 and above High risk Performed By: #### L IPID, CMP, TSHR, A1C, GFR, CBC, PSA, ADIFF, ANEU #### [address] [address] Cholesterol in HDL [Mass/Vol] 43 mg/dL Normal 40-60 [facility] Comment on above: Performed By: #### L IPID, CMP, TSHR, A1C, GFR, CBC, PSA, ADIFF, ANEU #### [address] [address] Cholesterol in LDL [Mass/Vol] 97 mg/dL Normal 0-130 [facility] Comment on above: Performed By: #### L IPID, CMP, TSHR, A1C, GFR, CBC, PSA, ADIFF, ANEU #### [address] [address] Triglyceride [Mass/Vol] 99 mg/dL Normal 0-150 [facility] Comment on above: Result Comment: Trig lyceride Reference Interval: Less than 150 Normal 150-199 Borderline high risk 200-499 High risk 500 or higher Very high risk Performed By: #### L IPID, CMP, TSHR, A1C, GFR, CBC, PSA, ADIFF, ANEU #### [address] [address] PSAon 05-01-2024 Prostate Specific Antigen 3.45 ng/mL Normal 0.00-4.00 [facility] Comment on above: Performed By: #### L IPID, CMP, TSHR, A1C, GFR, CBC, PSA, ADIFF, ANEU #### [address] [place], [place] [address] TSHRon 05-01-2024 TSH Qn 1.56 m[IU]/L Normal 0.36-3.74 [facility] Comment on above: Performed By: #### L IPID, CMP, TSHR, A1C, GFR, CBC, PSA, ADIFF, ANEU #### [address] [place], [place] [address] CBC W/Diff, Automatedon 02-02 Absolute Lymph 2.27 X10 3/uL Normal 0.83-4.51 [facility] Comment on above: Performed By: #### L 500.4050, L100.0100 #### [facility] [address] [place], [address] Absolute Neut 6.5 X10 3/uL Normal 2.0-7.7 [facility] Comment on above: Performed By: #### L 500.4050, L100.0100 #### [facility] [address] [place], [address] Basophils/100 WBC (Bld) 0.5 % Normal 0-1 [facility] Comment on above: Performed By: #### L 500.4050, L100.0100 #### [facility] [address] [place], [address] Eosinophils/100 WBC (Bld) 3.9 % Normal 0-5 [facility] Comment on above: Performed By: #### L 500.4050, L100.0100 #### [facility] [address] [place], [address] Erythrocyte distribution width (RBC) [Ratio] 12.9 % Normal 11.6-14.6 [facility] Comment on above: Performed By: #### L 500.4050, L100.0100 #### [facility] [address] [place], [address] Hematocrit (Bld) [Volume fraction] 42.1 % Normal 40-54 [facility] Comment on above: Performed By: #### L 500.4050, L100.0100 #### [facility] [address] [place], [address] Hemoglobin (Bld) [Mass/Vol] 14.1 g/dL Normal 13.0-16. 5 [facility] Comment on above: Performed By: #### L 500.4050, L100.0100 #### [facility] [address] [place], [address] IG% 0.600 Normal 0.0-0.9 [facility] Comment on above: Result Comment: IG% - Immature Granulocytes (promyelocytes, myelocytes and metamyelocytes) > 1% indicates that a LEFT SHIFT is Present. Performed By: #### L 500.4050, L100.0100 #### [facility] [address] [place], [address] Lymphocytes/100 WBC (Bld) 22.9 % Normal 19-41 [facility] Comment on above: Performed By: #### L 500.4050, L100.0100 #### [facility] [address] [place], [address] MCH (RBC) [Entitic mass] 30.0 pg Normal 27.0-32.0 [facility] Comment on above: Performed By: #### L 500.4050, L100.0100 #### [facility] [address] [place], [address] MCHC (RBC) [Mass/Vol] 33.5 g/dL Normal 32-36 [facility] Comment on above: Performed By: #### L 500.4050, L100.0100 #### [facility] [address] [place], [address] MCV (RBC) [Entitic vol] 89.6 fL Normal 80-94 [facility] Comment on above: Performed By: #### L 500.4050, L100.0100 #### [facility] [address] [place], [address] Monocytes/100 WBC (Bld) 7.2 % Normal 0-10 [facility] Comment on above: Performed By: #### L 500.4050, L100.0100 #### [facility] [address] [place], [address] Neutrophils/100 WBC (Bld) 64.9 % Normal 47-70 [facility] Comment on above: Performed By: #### L 500.4050, L100.0100 #### [facility] [address] [place], [address] Nucleated RBC (Bld) [#/Vol] 0 10*3/uL Normal 0-5 [facility] Comment on above: Performed By: #### L 500.4050, L100.0100 #### [facility] [address] [place], [address] Platelet mean volume (Bld) [Entitic vol] 10.8 fL Normal 6.2-12.0 [facility] Comment on above: Performed By: #### L 500.4050, L100.0100 #### [facility] [address] [place], [address] Platelets (Bld) [#/Vol] 275 10*3/uL Normal 150-450 [facility] Comment on above: Performed By: #### L 500.4050, L100.0100 #### [facility] [address] [place], [address] RBC (Bld) [#/Vol] 4.70 10*6/uL Normal 4.6-6.2 [facility] Comment on above: Performed By: #### L 500.4050, L100.0100 #### [facility] [address] [place], [address] RDW SD 42.6 fl Normal 35.1-43.9 [facility] Comment on above: Performed By: #### L 500.4050, L100.0100 #### [facility] [address] [place], [address] WBC (Bld) [#/Vol] 9.9 10*3/uL Normal 4.4-11.0 [facility] Comment on above: Performed By: #### L 500.4050, L100.0100 #### [facility] [address] [place], [address] CRPon 02-16-2024 C-REACTIVE PROT 8.38 mg/L High 0.0-3.0 [facility] Comment on above: Result Comment: C-Re active Protein (CRP) provides useful information for the diagnosis, therapy and monitoring of inflammatory processes and associated diseases. For the evaluation of Relative Risk for Cardiovascular Disease, a High Sensitivity CRP (HSCRP) should be ordered. Performed By: #### L 101.9900, L501.6710 #### [facility] [address] [place], [address] Comprehensive Metabolic Prof ilon 02-16-2024 Albumin [Mass/Vol] 3.9 g/dL Normal 3.2-5.0 [facility] Comment on above: Performed By: #### L 500.4050, L100.0100 #### [facility] [address] [place], [address] Albumin/Globulin [Mass ratio] 1.1 {ratio} Normal 0.9-2.4 [facility] Comment on above: Performed By: #### L 500.4050, L100.0100 #### [facility] [address] [place], [address] ALK P 110 U/L Normal 45-117 [facility] Comment on above: Performed By: #### L 500.4050, L100.0100 #### [facility] [address] [place], [address] ALT [Catalytic activity/Vol] 27 U/L Normal 16-61 [facility] Comment on above: Performed By: #### L 500.4050, L100.0100 #### [facility] [address] [place], [address] AST [Catalytic activity/Vol] 16 U/L Normal 15-37 [facility] Comment on above: Performed By: #### L 500.4050, L100.0100 #### [facility] [address] [place], [address] Bilirubin [Mass/Vol] 1.00 mg/dL Normal 0.20-1.00 [facility] Comment on above: Result Comment: For patients on eltrombopag therapy, use of Dimension Ellijay TBIL is not recommended. Performed By: #### L 500.4050, L100.0100 #### [facility] [address] [place], [address] BUN/CRE 17.2 RATIO Normal 10-20 [facility] Comment on above: Performed By: #### L 500.4050, L100.0100 #### [facility] [address] [place], [address] CA,Total 9.6 mg/dL Normal 8.5-10.1 [facility] Comment on above: Performed By: #### L 500.4050, L100.0100 #### [facility] [address] [place], [address] Chloride [Moles/Vol] 105 mmol/L Normal 98-107 [facility] Comment on above: Performed By: #### L 500.4050, L100.0100 #### [facility] [address] [place], [address] CO2 [Moles/Vol] 27.0 mmol/L Normal 21.0-32.0 [facility] Comment on above: Performed By: #### L 500.4050, L100.0100 #### [facility] [address] [place], [address] Creatinine [Mass/Vol] 0.75 mg/dL Normal 0.70-1.30 [facility] Comment on above: Result Comment: The validity of the calculated GFR GFRAA in patients over 70 years has not been determined. Clinical correlation is essential. Performed By: #### L 500.4050, L100.0100 #### [facility] [address] [place], [address] EST GFR - AA 133 mL/min Normal >60 [facility] Comment on above: Result Comment: Afri can Andorran GFR Calc Performed By: #### L 500.4050, L100.0100 #### [facility] [address] [place], [address] GAP 5 Normal 5-15 [facility] Comment on above: Performed By: #### L 500.4050, L100.0100 #### [facility] [address] [place], [address] GFR/1.73 sq M.predicted among non-blacks MDRD (S/P/Bld) [Vol rate/Area] 110 mL/min/{1.73_m2} Normal >60 [facility] Comment on above: Result Comment: Non- GFR Calc Performed By: #### L 500.4050, L100.0100 #### [facility] [address] [place], [address] Globulin (S) [Mass/Vol] 3.6 g/dL Normal 2.2-4.2 [facility] Comment on above: Performed By: #### L 500.4050, L100.0100 #### [facility] [address] [place], [address] Glucose [Mass/Vol] 156 mg/dL High 74-106 [facility] Comment on above: Result Comment: Fast ing Glucose result greater than or equal to 126 mg/dL suggests DIABETES MELLITUS per A.D.A. criteria. Performed By: #### L 500.4050, L100.0100 #### [facility] [address] [place], [address] Potassium [Moles/Vol] 4.1 mmol/L Normal 3.5-5.1 [facility] Comment on above: Performed By: #### L 500.4050, L100.0100 #### [facility] [address] [place], [address] Sodium [Moles/Vol] 137 mmol/L Normal 136-145 [facility] Comment on above: Performed By: #### L 500.4050, L100.0100 #### [facility] [address] [place], [address] T PROT 7.5 g/dL Normal 6.4-8.2 [facility] Comment on above: Performed By: #### L 500.4050, L100.0100 #### [facility] [address] [place], [address] Urea nitrogen [Mass/Vol] 13 mg/dL Normal 7-18 [facility] Comment on above: Performed By: #### L 500.4050, L100.0100 #### [facility] [address] [place], [address] Erythrocyte Sed Rateon 02-15 SED RATE 10 mm/hr Normal 0-20 [facility] Comment on above: Performed By: #### L 101.9900, L501.6710 #### [facility] [address] [place], [address] Gastroenterology Visit Repor ton 02-16-2024 Gastroenterology Visit Report [facility]astroenterology [address] [address] OFFICE VISIT Date of Service: 02/16/24 MR#: [id number] Acct: [id number] Name: MEG HUFF Rep #: [id number] : 1955 Provider: ZOEY barreto Age/Sex: 68/M Location: [facility] [place] Status: Signed Intake Vital Signs 12/17/21 08:49 02/16/24 09:11 Height 6 ft 1 in Weight: 277 lb 2 oz BP 144/87 H Respiration 18 Pulse 69 Temp 98.2 F Pulse Oximetry (%) 95 Oxygen Delivery Method room air Intake Visit Reasons: 6 M FU Chief Complaint: no complaints today Emergency Veterinary Technician Required: No Is patient in pain?: No Allergies Penicillins Adverse Reaction (Intermediate, Verified 02/16/24 09:10) Unknown Medications ???Medication ???Instructions ???Recorded ???Confirmed ???Type metoprolol succinate 25 mg 25 mg PO DAILY 11/26/21 02/16/24 History tablet,extended release 24 hr alfalfa 250 mg tablet 1,000 mg PO DAILY 12/16/21 02/16/24 History ascorbic acid (vitamin C) 500 mg 500 mg PO DAILY 12/16/21 02/16/24 History tablet (Vitamin C) cholecalciferol (vitamin D3) 50 50 mcg PO DAILY 12/16/21 02/16/24 History mcg (2,000 unit) capsule (Vitamin D3) multivitamin 1 tab PO DAILY 12/16/21 02/16/24 History mesalamine 500 mg capsule,extended 1,000 mg (2 x 500 mg) PO BID #120 06/01/22 02/16/24 Rx release caps Have you fallen in the past year?: No Nurse's Note: Has had no bleeding or flair ups for quite awhile [facility] Medical History (Updated 02/18/23 @ 09:[address] Jamie Friend, DO) Wears glasses Discoloration of skin Back pain History of diverticulitis Non-smoker Chronic cough Hypertension History of irregular heartbeat Diabetes mellitus Surgical History Hx of eye surgery Hx of colonoscopy Social History Smoking Status: Never smoker HPI HPI Chief Complaint: no complaints today Details: GI Dr. James established 2017 with diagnosis of UC. Savannaa attempted but experienced SE and was stopped and not started on another medication. Colonoscopy 06.22.[address] James noted right colon to have minimal increase of intraepithelial lymphocytes. Left colon chronic active colitis with inflammatory cell infiltrates in lamina propria, cryptitis, crypt abscess and glandular distortion without dysplasia. *BGI established 11.26.21. Periodic flares approximately once a month with increase of watery and urgent BM and bloody stools and is self-limiting. When not experiencing a flare, he is having looser BM once a day without blood/mucous. Denies abdominal pain, weight loss or appetite changes during a flare or regularly. Biochemical CMP, LDH, CBC, ESR, HEMALATHA comp, celiac, GAME, SARA without pertinent abnormality CRP H12.50, A1c 8.8, pANCA H1:160 Stool lactoferrin, c.difficile WNL. Colonoscopy 12.17.21 Vinson Score 2 UC, moderate active colitis of left colon and rectum; 5mm TA polyp at hepatic flexure; severe diverticulosis left sided. OV 01.01.22 Feels he is doing well without UC symptoms. OV .08.24 Denies active symptoms of abdominal pain, frequent stooling, rectal bleeding or loose stools. He is working at changing his diet. Reports A1c has improved and most recently was 8.1. Biochemical pANCA H1:160, ESR H21, CRP H8.02 Contact 04.15.22 for result update and he will continue to consider medication to control his UC. Contact to discuss treatment options. Azathioprine start 05.14.22. 06.01.22 Meg does not wish to pursue Azathioprine. Mesalamine and budesonide preferred by Meg. OV 02.18.23 for the last five weeks he was having increased loose stools with bleeding without abdominal pain/cramping; these have been improving recently, did make some dietary changes with limited coffee. Continues with mesalamine (pentasa) and budesonide. OV 5.8.24 pt reports that he has not had a flare up in about 5 months and that he is overall feeling good. Pt reports that he is having 1-2 formed bm per morning. Continues with mesalamine, but has stopped taking the budesonide because he wasn't sure if he still needed to take it because he was feeling well. He was previously on mesalamine 1.6 grams per day. At this time he is not on therapy for his colitis. He would like to try diet and exercise to control his symptoms. His colonoscopy shows that he does have chronic moderate reactive ulcerative colitis extending from the rectum to the splenic flexure. His ESR and CRP are fecal calprotectin is also elevated. I would like for him to go on an immune modulator. Patient says that he will think about going on medical therapy depending on what his repeat ESR, CRP and fecal calprotectin show. It is recommendations that he go on medical therapy to decrease risk of developing dysplasia and colon can (more content not included)... Normal [facility] XR CHEST 2 VIEWSon 4 XR CHEST 2 VIEWS ORIGINAL EXAMINATION: TWO XRAY VIEWS OF THE [...] Date: 02/13/2024 10:40:28 AM Ordering Provider: SAMANTHA Lopez [facility] Atypical perinuclear antineu trophil cytoplasmic antibodies measurementOrdered By: Jamie Maria on 04-08-2022 Neutrophil cytoplasmic Ab.perinuclear.atypical IF (S) [Titer] 1:160 titer Neg:<1:20 [facility] Comment on above: The atypical pANCA p attern has been observed in asignificant percentage of patients with ulcerative colitis,primary sclerosing cholangitis and autoimmune hepatitis.Performed at: [facility] Lab[address] [id number] Director: Kris Flores PhD, Phone: [phone] Erythrocyte sedimentation ra teOrdered By: Jamie Maria on 04-08-2022 ESR (Bld) [Velocity] 21 mm/h 0-20 [facility] Serum classic neutrophil cyt oplasmic antibody assay (units/volume)Ordered By: Jamie Maria on 04-08-2022 Neutrophil cytoplasmic Ab.classic Qn (S) <1:20 titer Neg:<1:20 [facility] Serum or plasma C reactive p rotein measurement (mass/volume)Ordered By: Jamie Maria on 04-08-2022 CRP [Mass/Vol] 8.02 mg/L 0.0-3.0 [facility] Comment on above: C-Reactive Protein ( CRP) provides useful information for thediagnosis, therapy and monitoring of inflammatory processesand associated diseases. For the evaluation of Relative Riskfor Cardiovascular Disease, a High Sensitivity CRP (HSCRP)should be ordered. Serum perinuclear neutrophil cytoplasmic antibody titer by immunofluorescenceOrdered By: Jamie Maria on 04-08-2022 Neutrophil cytoplasmic Ab.perinuclear IF (S) [Titer] <1:20 titer Neg:<1:20 [facility] Comment on above: The presence of posi tive fluorescence exhibiting P-ANCA orC-ANCA patterns alone is not specific for the diagnosis ofWegener's Granulomatosis (WG) or microscopic polyangiitis.Decisions about treatment should not be based solely onANCA IFA results. The International ANCA Group Consensusrecommends follow up testing of positive sera with both HI-3 and MPO-ANCA enzyme immunoassays. As many as 5% serumsamples are positive only by EIA. Ref. AM J Clin Vcedej1015;111:507-513. Absolute lymphocyte counton 11-26-2021 Lymphocytes Auto (Unsp spec) [#/Vol] 2.12 10*3/uL 0.83-4.51 [facility] Work Phone: Albumin Elph [Mass/Vol]on Albumin [Mass/Vol] 4.3 g/dL 2.9-4.4 [facility] Work Phone: Atypical perinuclear antineu trophil cytoplasmic antibodies measurementon 11-26-2021 Neutrophil cytoplasmic Ab.perinuclear.atypical IF (S) [Titer] 1:160 titer Neg:<1:20 [facility] Work Phone: Comment on above: The atypical pANCA p attern has been observed in asignificant percentage of patients with ulcerative colitis,primary sclerosing cholangitis and autoimmune hepatitis.Performed at: [employer] [facility] [address] [id number] Director: Kris Flores PhD, Phone: [phone] at: [facility] LabSatarii[address] [id number] Director: Jimmie Garcia MD, Phone: [phone] Basophil percentageon 2021 Basophil percentage < 0.2 AI 0.0-0.9 [facility]: Basophils/100 WBC (Bld) 0.6 % 0-1 [facility] Work Phone: Bilirubin [Mass/Vol] 0.90 mg/dL 0.20-1.00 [facility] Work Phone: Comment on above: For patients on eltr ombopag therapy, use of Dimension Ellijay TBIL is not recommended. Chloride [Moles/Vol] 102 mmol/L 98-107 [facility] Work Phone: Eosinophils/100 WBC (Bld) 2.1 % 0-5 [facility] Work Phone: Glucose [Mass/Vol] 281 mg/dL 74-106 [facility] Work Phone: Comment on above: Glucose result great er than or equal to 200 mg/dLsuggests DIABETES MELLITUS per A.D.A. criteria. Neutrophils (Bld) [#/Vol] 5.2 10*3/uL 2.0-7.7 [facility] Work Phone: Neutrophils/100 WBC (Bld) 63.8 % 47-70 [facility] Work Phone: Potassium [Moles/Vol] 4.1 mmol/L 3.5-5.1 [facility] Work Phone: Protein [Mass/Vol] 7.8 g/dL 6.4-8.[address] [facility] [facility] Work Phone: Sodium [Moles/Vol] 136 mmol/L 136-[address] [facility] [facility] Work Phone: WBC (Bld) [#/Vol] 8.2 10*3/uL 4.4-11.0 [facility] Work Phone: Blood erythrocytes count (nu mber/volume)on 11-26-2021 RBC (Bld) [#/Vol] 4.58 10*6/uL 4.6-6.2 [facility] Work [facility]: Blood hemoglobin measurement (mass/volume)on 11-26-2021 Hemoglobin (Bld) [Mass/Vol] 13.5 g/dL 13.0-16. 5 [facility] Work Phone: Blood lymphocytes/100 leukoc yteson 11-26-2021 Lymphocytes/100 WBC (Bld) 25.9 % 19-41 [facility] Work Phone: [phone] Blood monocytes/100 leukocyt eson 11-26-2021 Monocytes/100 WBC (Bld) 6.9 % 0-10 [facility] Work Phone: Blood platelet mean volumeon 11-26-2021 Platelet mean volume (Bld) [Entitic vol] 10.8 fL 6.2-12.0 [facility] Work Phone: Determination of erythrocyte mean corpuscular volume (MCV)on 11-26-2021 MCV (RBC) [Entitic vol] 90.6 fL 80-94 [facility] Work Phone: [phone] Erythrocyte sedimentation ra mike 11-26-2021 ESR (Bld) [Velocity] 14 mm/h 0-20 [facility] Work Phone: Hematocrit Auto (Bld) [Volum e fraction]on 11-26-2021 Hematocrit (Bld) [Volume fraction] 41.5 % 40-54 [facility] Work Phone: Interpretation of serum or p lasma protein pattern by immunofixation (narrative resulton 11-26-2021 Protein Fractions Immunofixation Naseem [Interp] See comment [facility] Work Phone: Comment on above: Result: Not Observed Laboratory - Chemistry and C hemistry - challengeon 11-26-2021 ALP [Catalytic activity/Vol] 112 U/L 45-117 [facility] Work Phone: ALT [Catalytic activity/Vol] 40 U/L 16-61 [facility] Work Phone: CO2 [Moles/Vol] 26.0 mmol/L 21.0-32.0 [facility] Work Phone: Globulin (S) [Mass/Vol] 3.9 g/dL 2.2-4.2 [facility] Work Phone: [phone] Urea nitrogen/Creatinine [Mass ratio] 23.0 mg/mg 10-20 [facility] Work Phone: Laboratory - Hematology and Cell countson 11-26-2021 Erythrocyte distribution width (RBC) [Entitic vol] 41.0 fL 35.1-43.9 [facility] Work Phone: Erythrocyte distribution width (RBC) [Ratio] 12.7 % 11.6-14.6 [facility] Work Phone: Immature granulocytes/100 WBC (Bld) 0.700 % 0.0-0.9 [facility] Work Phone: Comment on above: IG% - Immature Granu locytes (promyelocytes, myelocytes and metamyelocytes) > 1% indicates that a LEFT SHIFT is Present. MCH (RBC) [Entitic mass] 29.5 pg 27.0-32.0 [facility] Work Phone: Nucleated RBC/100 WBC (Bld) [Ratio] 0 % 0-5 [facility] Work Phone: MCHC Auto (RBC) [Mass/Vol]on 11-26-2021 MCHC (RBC) [Mass/Vol] 32.5 g/dL 32-36 [facility] Work Phone: No Panel Informationon 11-26 Addendum Document Comment . [facility] Work Phone: Comment on above: Protein electrophore sis scan will follow via computer,mail, or search consultant delivery. Centromere B Antibody <0.2 AI 0.0-0.9 [facility] Work Phone: Endomysial IgA Antibody Negative Negative [facility] Work Phone: Estimated GFR (MDRD) Amer 128 mL/min >60 [facility] Work Phone: Comment on above: GFR Calc Estimated GFR (MDRD) Non-Af Amer 106 mL/min >60 [facility] Work Phone: Comment on above: Non- GFR Calc Immunoglobulin E 250 IU/mL 6-495 [facility] Work Phone: MUTUEL CLERK Antibody <0.2 AI 0.0-0.9 [facility] Work Phone: Platelets bldon 11-26-2021 Platelets (Bld) [#/Vol] 278 10*3/uL 150-450 [facility] Work Phone: Serum DNA double strand anti body assay (units/volume)on 11-26-2021 DNA double strand Ab Qn (S) [IU]/mL 0-9 [facility] Work Phone: Comment on above: Negative <5 Equivoca l 5 - 9 Positive >9 Serum IgA measurement (units /volume)on 11-26-2021 IgA Qn (S) 303 mg/dL 61-437 [facility] Work Phone: Comment on above: Performed at: [address] [id number] Director: Kris Flores PhD, Phone: [phone] Serum Jazmine-1 antibody assay (u nits/volume)on 11-26-2021 Jazmine-1 extractable nuclear Ab Qn (S) <0.2 AI 0.0-0.9 [facility] Work Phone: Serum Scl-70 extractable nuc lear antibody assay (units/volume)on 11-26-2021 SCL-70 extractable nuclear Ab Qn (S) <0.2 AI 0.0-0.9 [facility] Work Phone: Serum Kinsey extractable nucl ear antibody detectionon 11-26-2021 Kinsey extractable nuclear Ab Ql (S) <0.2 AI 0.0-0.9 [facility] Work Phone: Serum ibuva-6-oympfblx measu rement by electrophoresison 11-26-2021 Alpha 1 globulin Elph [Mass/Vol] 0.2 g/dL 0.0-0.4 [facility] Work Phone: Alpha 1 globulin Elph [Mass/Vol] 0.7 g/dL 0.4-1.0 [facility] Work Phone: Serum classic neutrophil cyt oplasmic antibody assay (units/volume)on 11-26-2021 Neutrophil cytoplasmic Ab.classic Qn (S) <1:20 titer Neg:<1:20 [facility] Work Phone: Serum globulin measurement ( mass/volume)on 11-26-2021 Globulin (S) [Mass/Vol] 2.9 g/dL 2.2-3.9 [facility] Work Phone: Serum or plasma C reactive p rotein measurement (mass/volume)on 11-26-2021 CRP [Mass/Vol] 12.50 mg/L 0.0-3.0 [facility] Work Phone: Comment on above: C-Reactive Protein ( CRP) provides useful information for thediagnosis, therapy and monitoring of inflammatory processesand associated diseases. For the evaluation of Relative Riskfor Cardiovascular Disease, a High Sensitivity CRP (HSCRP)should be ordered. Serum or plasma IgA measurem ent (mass/volume)on 11-26-2021 IgA [Mass/Vol] 308 mg/dL 61-437 [facility] Work Phone: Serum or plasma IgG measurem ent (mass/volume)on 11-26-2021 IgG [Mass/Vol] 975 mg/dL 603-1613 [facility] Work Phone: Serum or plasma IgM measurem ent (mass/volume)on 11-26-2021 IgM [Mass/Vol] 151 mg/dL 20-172 [facility] Work Phone: Serum or plasma albumin olive urement (mass/volume)on 11-26-2021 Albumin [Mass/Vol] 3.9 g/dL 3.2-5.0 [facility] Work Phone: Serum or plasma albumin/glob ulin mass ratioon 11-26-2021 Albumin/Globulin [Mass ratio] 1.0 {ratio} 0.9-2.4 [facility] Work Phone: Serum or plasma beta globuli n measurement by electrophoresis (mass/volume)on 11-26-2021 Beta globulin Elph [Mass/Vol] 1.1 g/dL 0.7-1.3 [facility] Work Phone: Serum or plasma calcium olive urement (mass/volume)on 11-26-2021 Calcium [Mass/Vol] 9.4 mg/dL 8.5-10.1 [facility] Work Phone: Serum or plasma creatinine m easurement (mass/volume)on 11-26-2021 Creatinine [Mass/Vol] 0.78 mg/dL 0.70-1.30 [facility] Work Phone: Comment on above: The validity of the calculated GFR & GFRAA in patients over 70 years has not been determined. Clinical correlation is essential. Serum or plasma gamma globul in measurement by electrophoresis (mass/volume)on 11-26-2021 Gamma globulin Elph [Mass/Vol] 0.9 g/dL 0.4-1.8 [facility] Work Phone: Serum or plasma immunoelectr ophoresis interpretation (nominal result)on 11-26-2021 Interpretation IEP [Interp] Comment . [facility] Work Phone: Comment on above: No monoclonality det ected. Serum or plasma urea nitroge n measurement (mass/volume)on 11-26-2021 Urea nitrogen [Mass/Vol] 18 mg/dL 7-18 [facility] Work Phone: Serum perinuclear neutrophil cytoplasmic antibody titer by immunofluorescenceon 11-26-2021 Neutrophil cytoplasmic Ab.perinuclear IF (S) [Titer] <1:20 titer Neg:<1:20 [facility] Work Phone: Comment on above: The presence of posi tive fluorescence exhibiting P-ANCA orC-ANCA patterns alone is not specific for the diagnosis ofWegener's Granulomatosis (WG) or microscopic polyangiitis.Decisions about treatment should not be based solely onANCA IFA results. The [employer] AN[employer] Consensusrecommends follow up testing of positive sera with both HI-3 and MPO-ANCA enzyme immunoassays. As many as 5% serumsamples are positive only by EIA. Ref. AM J Clin [id number];111:507-513. Serum tissue transglutaminas e IgA antibody assay (units/volume)on 11-26-2021 tTG IgA Qn (S) <2 U/mL 0-3 [facility] Work Phone: Comment on above: Negative 0 - 3 Weak Positive 4 - 10 Positive >10 Tissue Transglutaminase (tTG) has been identified as the endomysial antigen. Studies have demonstr- ated that endomysial IgA antibodies have over 99% specificity for gluten sensitive enteropathy. Thin prep Papanicolaou smear with manual screeningon 11-26-2021 Thin prep Papanicolaou smear with manual screening 26 U/L 15-37 [facility] Work Phone: Thin prep Papanicolaou smear with manual screening 8 5-15 [facility] Work Phone: Thin prep Papanicolaou smear with manual screening 192 U/L 87-241 [facility] Work Phone: Thin prep Papanicolaou smear with manual screening 1.5 0.7-1.7 [facility] Work Phone: Total protein bloodon 2021 Protein [Mass/Vol] 7.2 g/dL 6.0-8.5 [facility] Work Phone: Whole blood hemoglobin A1c/t otal hemoglobin ratio (mass fraction)on 11-26-2021 HbA1c (Bld) [Mass fraction] 8.8 % 3.8-5.6 [facility] Work Phone: Comment on above: Normal < 5.7 % Predi abetic 5.7 - 6.4 % Diabetic >or= 6.5 % Please note range changes. CNOVon 07-07-2021 CNOV Office Visit (GENOV[facility] ) MEG HUFF ([id number]) 1955 Date Time Provider Department 07/07/21 8:00 AM FREDI GEIGER During your visit today, we recorded the following information about you: Temperature Pulse Blood pressure Weight 96.1 degrees 98/minute 122/74 134.4 kg Height 1.854 m Sheela Barragan RN 07/07/2021 8:17 AM Signed REVIEW OF SYSTEMS: General: The patient denies fatigue, denies weight loss, denies weight gain, denies feeling hot, and denies feelings of cold. Eyes: The patient denies glaucoma, NOTES eye injury/surgery, wears glasses or contacts. Ear/Nose/Throat: The patient denies allergies, denies hayfever, denies ear infections, and denies bloody noses. Cardiovascular: The patient denies chest pain, denies heart disease, NOTES high blood pressure,denies cardiac stent, denies prior heart attack, denies irregular heart beat, denies high cholesterol, denies poor circulation, denies heart failure, other cardiac issues, denies claudication, denies cold feet, denies peripheral arterial stent. Respiratory: The patient denies tuberculosis, denies pneumonia, denies frequent cough, denies pulmonary embolism, denies shortness of breath, and denies coughing up blood. Gastrointestinal: The patient denies difficulty swallowing, denies acid reflux, denies ulcers, denies vomiting, denies jaundice/hepatitis, denies gallbladder problems, NOTES black or tarry stools, denies hemorrhoids, NOTES bleeding from rectum, denies diverticulitis, denies constipation, denies diarrhea, denies loss of stool control, and denies hernias. Kidney/Bladder: The patient denies kidney stones, denies urine infections, and denies bloody urine. Skin: The patient denies a history of skin cancer, denies bleeding/changing moles, and denies a history of skin rash. Neurologic: The patient denies a history of epilepsy/convulsions, denies headaches, denies head/spinal injuries, and denies stroke/TIA. Psychiatric: The patient denies psychiatric medications, denies depression, and denies voices, denies substance abuse. Endocrine: The patient denies thyroid disorders, denies diabetes, and denies hormonal problems. Hematologic: The patient denies a history of bruising, denies bleeding, and denies anemia, denies blood clots. Infections: The patient denies a history of measles and mumps, denies rheumatic fever, and denies sexually transmitted diseases. Musculoskeletal: The patient denies back pain/injury, denies back problems, denies sciatica, denies knee/foot trouble, denies arthritis, or denies gout. When was patient's last Mammogram screening? N/A Last Colonoscopy: 2013 JOSE Castaneda PA-C 07/14/2021 4:26 PM Signed HISTORY AND PHYSICAL Meg Huff 1955 REFERRING PHYSICIAN: Self CHIEF COMPLAINT: Consult (colonoscopy screening) HPI: The patient is a 66 year old male referred for endoscopy. Meg notes a history of ulcerative colitis. He previously followed with Dr. James for this, states last evaluation was 2017. Has not seen speech lang path therapist recently and takes no medication for this. He is now noting some blood in his stools and is concerned the UC is flaring up. Patient denies any weight changes, black tarry stools or abdominal pain. Denies family history of colon issues. The patient notes no upper GI complaints. Meg has undergone prior endoscopy. Last colonoscopy 06/22/16. Biopsies at that time showed chronic active colitis in the left colon, negative for dysplasia. Patient denies chest pain, shortness of breath or recent hospitalizations. Denies problems with sedation in the past. PAST MEDICAL HISTORY Diagnosis Date - Heart murmur - HTN (hypertension) - Ulcerative colitis (HCC) PAST SURGICAL HISTORY Procedure Laterality Date - PAST SURGICAL HISTORY OF right eye surgery age 11 - VASECTOMY UNI/BI SPX W/POSTOP SEMEN EXAMS Current Outpatient Medications Medication Sig - kuuce-9-vpi-epa-dpa-f paulie oil 1,050 mg(300 mg -675 mg-75 mg) cap Take by mouth. - metoprolol succinate XL, long acting, (TOPROL XL) 100 mg ORAL Tb24 Take 50 mg by mouth once daily. No current facility-administered medications for this visit. ALLERGIES: Penicillins PERSONAL HISTORY: Social History Tobacco Use - Smoking status: Former Smoker Types: Cigarettes Quit date: 05/03/1978 Years since quittin.2 - Smokeless tobacco: Never Used Vaping Use - Vaping Use: Never used Substance Use Topics - Alcohol use: No - Drug use: No FAMILY HISTORY: FAMILY HISTORY Problem Relation Age of Onset - Stroke Paternal Grandmother - Diabetes Paternal Grandfather REVIEW OF SYMPTOMS: The review of systems data was entered by the nurse and reviewed by ny Nursing Notes: Sheela Barragan RN 07/07/2021 8:17 AM Signed REVIEW OF SYSTEMS: General: The patient denies fa (more content not included)... Normal [facility] MEG HUFF ([id number]) 1955 Date Time Provider Department 07/07/21 FREDI GEIGER During your visit today, we recorded the following information about you: Sheyla Youngond 07/07/2021 8:53 AM Signed 08-18-2021 [facility] Mari Penny 07/07/2021 11:21 AM Signed Patient called in and rescheduled Colonoscopy to 09/15 and follow up 09/21 due to transportation conflict. Mari Penny PSS Allergies As of Date: 07/07/2021 Noted Allergy Reaction PENICILLINS 05/03/2011 14 - Other: See Comments Comments: States had allergy as child, unsure of reaction Date Reviewed: 07/07/2021 Reviewed by: Fredi Geiger PA-C - Fully Assessed Reason for Visit: 08-18-2021 [facility] [Other] Primary Visit Diagnosis:Ulcerative colitis with complication, unspecified location (HCC) [K51.919] Order(s):COLONOSCOPY DIAGNOSTIC [GI11] Order #: [id number] FUTURE Prescriptions as of 07/07/2021 - zwgaw-7-htu-epa-dpa-f paulie oil 1,050 mg(300 mg -675 mg-75 mg) cap Take by mouth. - metoprolol succinate XL, long acting, (TOPROL XL) 100 mg ORAL Tb24 Take 50 mg by mouth once daily. Problem List As Of Date 07/07/2021 Noted Resolved Inguinal swelling [R19.09] 05/03/2011 Encounter Status:Closed by MARI PENNY on 07/07/21 Normal [facility] .GFRon 06-30-2021 GFR 118 ml/min/1.73sqm Normal [facility] ([place]) Comment on above: Result Comment: GFR Population mean for , [...] 15 mL/min/1.73 square meters Performed By: #### P SA, TSH, LIPID, CMP, GFR #### [address] [address] GFR Non- 97 ml/min/1.73sqm Normal [facility] ([place]) Comment on above: Result Comment: GFR Population mean for , [...] 15 mL/min/1.73 square meters Performed By: #### P SA, TSH, LIPID, CMP, GFR #### [address] [address] CMPon 06-30-2021 Albumin Level 4.3 G/dL Normal 3.4-4.8 [facility] ([place]) Comment on above: Performed By: #### P SA, TSH, LIPID, CMP, GFR #### [address] [address] Albumin/Globulin [Mass ratio] 1.2 {ratio} Normal 1.1-2.5 [facility] ([place]) Comment on above: Performed By: #### P SA, TSH, LIPID, CMP, GFR #### [address] [address] ALP [Catalytic activity/Vol] 106 U/L Normal 40-135 [facility] ([place]) Comment on above: Performed By: #### P SA, TSH, LIPID, CMP, GFR #### [address] [address] ALT [Catalytic activity/Vol] 46 U/L Normal 16-63 [facility] ([place]) Comment on above: Performed By: #### P SA, TSH, LIPID, CMP, GFR #### [address] [address] AST [Catalytic activity/Vol] 28 U/L Normal 10-40 [facility] ([place]) Comment on above: Performed By: #### P SA, TSH, LIPID, CMP, GFR #### [address] [address] Bili Total 1.0 mg/dL Normal 0.2-1.0 [facility] ([place]) Comment on above: Result Comment: Use of this assay is not recommended for patients undergoing treatment with eltrombopag due to the potential for falsely elevated results. Performed By: #### P SA, TSH, LIPID, CMP, GFR #### [address] [address] BUN/Creatinine Ratio 21 ratio Normal 7-27 [facility] ([place]) Comment on above: Performed By: #### P SA, TSH, LIPID, CMP, GFR #### [address] [address] Calcium [Mass/Vol] 9.8 mg/dL Normal 8.4-10.2 [facility] ([place]) Comment on above: Performed By: #### P SA, TSH, LIPID, CMP, GFR #### [address] [address] Chloride [Moles/Vol] 97 mmol/L Low 98-107 [facility] ([place]) Comment on above: Performed By: #### P SA, TSH, LIPID, CMP, GFR #### [address] [address] CO2 [Moles/Vol] 26 mmol/L Normal 23-31 [facility] ([place]) Comment on above: Performed By: #### P SA, TSH, LIPID, CMP, GFR #### [address] [address] Creatinine [Mass/Vol] 0.80 mg/dL Normal 0.70-1.30 [facility] ([place]) Comment on above: Performed By: #### P SA, TSH, LIPID, CMP, GFR #### [address] [address] Electrolyte Balance 13.0 mEq/L Normal 4.0-15.0 [facility] ([place]) Comment on above: Performed By: #### P SA, TSH, LIPID, CMP, GFR #### [address] [address] Globulin 3.7 G/dL Normal [facility] ([place]) Comment on above: Performed By: #### P SA, TSH, LIPID, CMP, GFR #### [address] [address] Glucose [Mass/Vol] 171 mg/dL High 80-115 [facility] ([place]) Comment on above: Performed By: #### P SA, TSH, LIPID, CMP, GFR #### [address] [address] Potassium [Moles/Vol] 4.1 mmol/L Normal 3.5-5.1 [facility] ([place]) Comment on above: Performed By: #### P SA, TSH, LIPID, CMP, GFR #### [address] [address] Sodium [Moles/Vol] 136 mmol/L Normal 136-145 [facility] ([place]) Comment on above: Performed By: #### P SA, TSH, LIPID, CMP, GFR #### [address] [address] Total Protein 8.0 G/dL Normal 6.4-8.2 [facility] ([place]) Comment on above: Performed By: #### P SA, TSH, LIPID, CMP, GFR #### [address] [address] Urea nitrogen [Mass/Vol] 17 mg/dL Normal 7-18 [facility] ([place]) Comment on above: Performed By: #### P SA, TSH, LIPID, CMP, GFR #### [address] [address] LIPIDon 06-30-2021 Cholesterol [Mass/Vol] 196 mg/dL Normal 0-200 [facility] ([place]) Comment on above: Result Comment: Chol esterol Reference Interval: Less than 200 Desirable 200-239 Borderline high risk 240 and above High risk Performed By: #### P SA, TSH, LIPID, CMP, GFR #### [address] [address] Cholesterol in HDL [Mass/Vol] 38 mg/dL Low 40-60 [facility] ([place] Comment on above: Performed By: #### P SA, TSH, LIPID, CMP, GFR #### [address] [address] Cholesterol in LDL [Mass/Vol] 98 mg/dL Normal 0-130 [facility] ([place]) Comment on above: Performed By: #### P SA, TSH, LIPID, CMP, GFR #### [address] [address] Triglyceride [Mass/Vol] 300 mg/dL High 0-150 [facility] ([place]) Comment on above: Result Comment: Trig lyceride Reference Interval: Less than 150 Normal 150-199 Borderline high risk 200-499 High risk 500 or higher Very high risk Performed By: #### P SA, TSH, LIPID, CMP, GFR #### [address] [address] PSAon 06-30-2021 Prostate Specific Antigen 1.51 ng/mL Normal 0.00-4.00 [facility] ([place]) Comment on above: Performed By: #### P SA, TSH, LIPID, CMP, GFR #### [address] [address] TSHon 06-30-2021 TSH Qn 1.78 m[IU]/L Normal 0.36-3.74 [facility] ([place]) Comment on above: Performed By: #### P SA, TSH, LIPID, CMP, GFR #### [address] [address] Vital Signs Date Time Vital Sign Value Performing Clinician Kd goodwin 12-17-2021 10:30-0400 Body temperature 97.8 [degF] Dr. Samantha Gillespie Work Phone: [facility] Work Phone: 12-17-2021 10:30-0400 Diastolic blood pressure 86 mm[Hg] Dr. Samantha Gillespie Work Phone: [facility] Work Phone: 12-17-2021 10:30-0400 Heart rate 69 /min Dr. Samantha Gillespie Work Phone: [facility] Work Phone: 12-17-2021 10:30-0400 Respiratory rate 16 /min Dr. Samantha Gillespie Work Phone: [facility] Work Phone: 12-17-2021 10:30-0400 SaO2% (BldA) [Mass fraction] 98 % Dr. Samantha Gillespie Work Phone: [facility] Work Phone: 12-17-2021 10:30-0400 Systolic blood pressure 122 mm[Hg] Dr. Samantha Gillespie Work Phone: [facility] Work Phone: 12-17-2021 08:49-0400 Body height 185.[address] Samantha Gillespie Work Phone: [facility] Work Phone: 12-17-2021 08:49-0400 Body mass index (BMI) [Ratio] 38 kg/m2 Dr. Samantha Gillespie Work Phone: [facility] Work Phone: 12-17-2021 08:49-0400 Body weight [address] Samantha Gillespie Work Phone: [facility] Work Phone: 07-07-2021 08:13-0400 Body height 185.4 cm Fredi Geiger PA-C Work Phone: [facility] 07-07-2021 08:13-0400 Body temperature 96.1 [degF] Fredi Geiger PA-C Work Phone: [facility] 07-07-2021 08:13-0400 Body weight 134.45 kg Fredi Juanjo PA-C Work Phone: [facility] 07-07-2021 08:13-0400 Diastolic blood pressure 74 mm[Hg] Fredi Juanjo PA-C Work Phone: [facility] 07-07-2021 08:13-0400 Heart rate 98 /min Fredi [place] PA-C Work Phone: [facility] 07-07-2021 08:13-0400 SaO2% (BldA) [Mass fraction] 95 % Fredi [place] PA-C Work Phone: [facility] 07-07-2021 08:13-0400 Systolic blood pressure 122 mm[Hg] Fredi Juanjo PA-C Work Phone: [facility] Encounters Encounter Date Encounter Type Care Provider Facility Start: 12-26-2024 ambulatory Jamie Maria Facility :[facility] Start: 12-12-2024 End: 12-12-2024 Patient encounter procedure Marga NOLAND -[facility] Work Phone: Start: 12-12-2024 End: 12-12-[address] Samantha Gillespie DO Work Phone: -[facility] Start: 05-01-2024 End: 05-01-2024 ambulatory SAMANTHA GILLESPIE DO Facility:[facility] Start: 05-01-2024 End: 05-01-2024 Patient encounter procedure SAMANTHA GILLESPIE DO [facility] Start: 02-16-2024 End: 02-16-2024 ambulatory Jewels Mercado Facility:[facility] Start: 02-16-2024 End: 02-16-2024 ambulatory Jamie Maria Facility:[facility] Start: 02-13-2024 End: 02-13-2024 ambulatory SAMANTHA GILLESPIE DO Facility[facility] Start: 02-13-2024 End: 02-13-2024 Patient encounter procedure SAMANTHA GILLESPIE DO [facility] Start: 04-08-2022 End: 04-08-[address] Samantha Gillespie Work Phone: [facility] Work Phone: Start: 04-08-2022 End: 04-08-[address] Samantha Gillespie Work Phone: [facility] Start: 04-08-2022 End: 04-08-[address] Samantha Gillespie Work Phone: [facility] Start: 01-01-2022 End: 01-01-[address] Samantha Gillespie Work Phone: [facility] Start: 12-17-2021 Non-patient / Non-visit Dr. Samantha Gillespie Work Phone: [facility] Start: 12-17-2021 End: 12-17-2021 Admission to same day surgery center Dr. Samantha Gillespie Work Phone: [facility] Start: 12-17-2021 End: 12-17-[address] Samantha Gillespie Work Phone: [facility] Work Phone: Start: 11-26-2021 End: 11-26-[address] Jamie Maria Work Phone: [facility] Work Phone: Start: 11-26-2021 End: 11-26-[address] Jamie Maria Work Phone: [facility] Start: 07-07-2021 Telephone encounter Fredi hardy PA-C Work Phone: General Surgery Comment on above: 08-18-2021 [facility] Start: 07-07-2021 End: 07-07-2021 Patient encounter procedure Fredi Geiger PA-C Work Phone: General Surgery Comment on above: History of ulcerativ e colitis (Primary Dx); Rectal bleeding Start: 03-25-2021 End: 03-25-2021 ambulatory [facility] Procedures Date Procedure Procedure Detail Performing Clinician Start: 12-17-[address] Samantha Gillespie Work Phone: Start: 07-08-2016 Colonoscopy SAMANTHA MOTT DO Comment on above: Dr. James- cristi ant diverticulitis along with Colitis throughout Large Colon. Start: 11-02-1996 Vasectomy SAMANTHA MOTT DO Structure of eye pro per (body structure) SAMANTHA GILLESPIE DO Comment on above: OD Sx as a child Plan of Treatment Date Care Activity Detail Author Start: 12-17-2021 Patient discharge [facility] Work Phone: Start: 11-26-2021 Immunoglobulin measurement [facility] Work Phone: Start: 11-26-2021 Serum immunofixation [facility] Work Phone: Start: 11-26-[address] [facility] Work Phone: Start: 2012 PROSTATE CANCER SCRE ENING DISCUSSION PROSTATE CANCER SCREENING DISCUSSION [facility] Start: 2007 SHINGRIX VACCINE (1 of 2) MCLAU[place]HLIN GRIX VACCINE (1 of 2) [facility] Start: 2002 COLOGUARD (FIT-DNA) COLOGUARD (FIT-D NA) [facility] Start: 2002 Colonoscopy COLONOSCOPY [facility] Start: 2002 COLORECTAL CANCER SCREENING COLORECTAL CANCER SCREENING [facility] Start: [address] COLONOGRAPHY [facility] Start: 2002 DIABETES SCREEN DIABETES SCREEN [facility] Start: 2002 FECAL OCCULT BLOOD FECAL OCCULT BLOO D [facility] Start: 2002 SIGMOIDOSCOPY SIGMOIDOSCOPY [facility] Start: 1992 LIPID SCREEN LIPID SCREEN [facility] Start: 1976 Urine microalbumin profile DTAP,TDAP ,TD (1 - Tdap) [facility] Start: 1975 HEPATITIS C SCREENING HEPATITIS C SC REENING [facility] Start: 1975 HIV SCREENING HIV SCREENING [facility] Start: 1969 Adult depression scr eening assessment DEPRESSION SCREENING [facility] Start: 1962 COVID-19 VACCINE (1) COVID-19 VACCIN E (1) [facility] Albumin [Moles/volum e] in Serum or Plasma [facility] Work Phone: Albumin/Globulin ratio [facility] Work Phone: C reactive protein [Mass/volume] in Serum or Plasma [facility] C. difficile DNA Amplification C. difficile DNA Amplification [facility] Work Phone: CBC W Auto Different ial panel - Blood [facility] Clostridioides diffi cile DNA [Presence] in Unspecified specimen by VINCENZO with probe detection [facility] Work Phone: End: 07-07-2022 COLONOSCOPY DIAGNOSTIC COLONOSCOPY DIAGNOSTIC Endoscopy Routine Ulcerative colitis with complication, unspecified location (HCC) 1 Occurrences starting 07/07/2021 until 07/07/2022 [facility] Work Phone: Comment on above: 1 Occurrences starti ng 07/07/2021 until 07/07/2022 Comprehensive metabo lic 2000 panel - Serum or Plasma [facility] Electrophoresis: [id number] [facility] Work Phone: Electrophoresis: felipe ma globulin [facility] Work Phone: Enteric Bacteriology Enteric Bacteriology [facility] Work Phone: Gastrointestinal pat hogens panel - Stool by VINCENZO with probe detection [facility] Work Phone: Globulin measurement [facility] Work Phone: IgA [Mass/volume] in Serum or Plasma [facility] Work Phone: IgE [Units/volume] i n Serum or Plasma [facility] Work Phone: IgG [Mass/volume] in Serum or Plasma [facility] Work Phone: IgM [Mass/volume] in Serum or Plasma [facility] Work Phone: Lactoferrin [Presenc e] in Stool by Immunoassay [facility] Work Phone: Neutrophil cytoplasm ic Ab.classic [Units/volume] in Serum [facility] Work Phone: P-ANCA measurement [facility] Work Phone: Patient referral [facility] Work Phone: Protein electrophore sis panel - Serum or Plasma [facility] Work Phone: Protein measurement [facility] Work Phone: Serum protein electrophoresis [facility] Work Phone: [facility] Immunizations Immunization Date Immunization Notes Care Provider [facility] 02-01-2022 influenza, injectabl e, quadrivalent, contains preservative; Translations: [Fluarix PF Quadrivalent ] SAMANTHA GILLESPIE DO [facility] 02-11-2021 influenza, injectabl e, quadrivalent, contains preservative; Translations: [Fluarix PF Quadrivalent ] SAMANTHA GILLESPIE DO [facility] 01-25-2020 influenza, injectabl e, quadrivalent, preservative free; Translations: [Fluarix PF Quadrivalent ] SAMANTHA GILLESPIE DO [facility] 06-14-2019 tetanus toxoid, redu john paul diphtheria toxoid, and acellular pertussis vaccine, adsorbed; Translations: [Boostrix (Tdap)] SAMANTHA GILLESPIE DO [facility] 01-23-2019 influenza, injectabl e, quadrivalent, preservative free; Translations: [Fluarix PF Quadrivalent ] SAMANTHA GILLESPIE DO [facility] 01-26-2018 influenza virus vaccine, unspecified formulation SAMANTHA GILLESPIE DO [facility] 01-17-2017 influenza virus vaccine, unspecified formulation SAMANTHA GILLESPIE DO [facility] 01-28-2016 influenza virus vaccine, unspecified formulation SAMANTHA GILLESPIE DO [facility] 03-25-2015 influenza virus vaccine, unspecified formulation SAMANTHA GILLESPIE DO [facility] 12-18-2013 influenza virus vaccine, unspecified formulation SAMANTHA GILLESPIE DO [facility] 04-23-2013 influenza virus vaccine, unspecified formulation SAMANTHA GILLESPIE DO [facility] 04-05-2008 tetanus toxoid, redu john paul diphtheria toxoid, and acellular pertussis vaccine, adsorbed SAMANTHA GILLESPIE DO [facility] Payers Date Payer Category Payer Unknown [id number] 2024 Self-pay [id number] 2023 Medicare [id number] 2023 Unknown [id number] 2022 Medicare [id number] 2021 Unknown [facility] PPO [employer] [id number] 2021-Present [address] [place] [address] PPO [id number] 2016 Unknown [id number] 1955 Unknown [id number] 1955 Unknown [id number] 1955 Unknown [id number] Unknown [id number] Unknown [id number] Unknown [id number] Unknown [id number] Unknown [id number] Unknown [id number] Social History Date Type Detail Facility Start: 05-03-2011 End: 07-02-2021 Tobacco smoking status TXIS Ex-smoker [facility] Comment on above: no smoke exposure End: 05-03-1978 History of tobacco use Current smoker [facility] End: 05-03-1978 History of tobacco use Cigarette Smoker [facility] Start: 05-03-2011 Tobacco use and exposure Smoke less tobacco non-user [facility] Start: 07-07-2021 Alcohol intake Current non-dr rn behavioral health of alcohol (finding) [facility] Start: 1955 Sex Assigned At Not on file [facility] Start: 06-27-2021 End: 07-07-2021 Exposure to SARS-CoV-2 (event) Not sure [facility] Start: 1955 Sex Assigned At Male [facility] Start: 12-16-2021 End: 04-08-2022 Tobacco smoking status TXIS Unknown if ever smoked [facility] Sexual Orientation Justine Berg Start: 02-27-2019 Sex Male (finding) [facility] Start: 02-18-2023 Tobacco smoking stat us NHIS Never smoked tobacco (finding) [facility] Goals Date Patient Goal Desired Activity /State Mental Status Date Assessment Result Facility 12-17-2021 Cognitive function Voice/Name [facility] Work Phone: Clinical Notes 07-07-2021 to 02-13-2024 Telephone Encounter - Mari Penny - 07/07/2021 11:20 AM EDTTelephone Encounter - Sheyla Doe - 07/07/2021 8:50 AM Marlon Geiger PA-C - 07/07/2021 8:23 AM EDTLaboratoryLaboratory Note Date & Type Note Facility 02-13-2024 Note ORIGINAL EXAMINATION: TWO XRAY VIEWS OF THE [...] Date: 02/13/2024 10:40:28 AM Ordering Provider: SAMANTHA [facility] 07-07-2021 Miscellaneous Notes Patient called in and rescheduled Colonoscopy to 09/15 and follow up 09/21 due to transportation conflict. Mari Penny PSS 08-18-2021 COLON [facility] documented in this encounter [facility] 07-07-2021 Note HNO ID: [id number] Author: Fredi Geiger PA-C Service: ? Author Type: Physician Wheelage Clerk Type: Progress Notes Filed: 07/14/2021 4:26 PM Note Text: HISTORY AND PHYSICAL Meg Huff 1955 REFERRING PHYSICIAN: Self CHIEF COMPLAINT: Consult (colonoscopy screening) HPI: The patient is a 66 year old male referred for endoscopy. Meg notes a history of ulcerative colitis. He previously followed with Dr. James for this, states last evaluation was 2016. Has not seen speech lang path therapist recently and takes no medication for this. He is now noting some blood in his stools and is concerned the UC is flaring up. Patient denies any weight changes, black tarry stools or abdominal pain. Denies family history of colon issues. The patient notes no upper GI complaints. Meg has undergone prior endoscopy. Last colonoscopy 06/22/16. Biopsies at that time showed chronic active colitis in the left colon, negative for dysplasia. Patient denies chest pain, shortness of breath or recent hospitalizations. Denies problems with sedation in the past. PAST MEDICAL HISTORY Diagnosis Date - Heart murmur - HTN (hypertension) - Ulcerative colitis (HCC) PAST SURGICAL HISTORY Procedure Laterality Date - PAST SURGICAL HISTORY OF right eye surgery age 11 - VASECTOMY UNI/BI SPX W/POSTOP SEMEN EXAMS Current Outpatient Medications Medication Sig - [id number]-[id number]-psox oil 1,050 mg(300 mg -675 mg-75 mg) cap Take by mouth. - metoprolol succinate XL, long acting, (TOPROL XL) 100 mg ORAL Tb24 Take 50 mg by mouth once daily. No current facility-administered medications for this visit. ALLERGIES: Penicillins PERSONAL HISTORY: Social History Tobacco Use - Smoking status: Former Smoker Types: Cigarettes Quit date: 05/03/1978 Years since quittin.2 - Smokeless tobacco: Never Used Vaping Use - Vaping Use: Never used Substance Use Topics - Alcohol use: No - Drug use: No FAMILY HISTORY: FAMILY HISTORY Problem Relation Age of Onset - Stroke Paternal Grandmother - Diabetes Paternal Grandfather REVIEW OF SYMPTOMS: The review of systems data was entered by the nurse and reviewed by ny Nursing Notes: Sheela Barragan RN 07/07/2021 8:17 AM Signed REVIEW OF SYSTEMS: General: The patient denies fatigue, denies weight loss, denies weight gain, denies feeling hot, and denies feelings of cold. Eyes: The patient denies glaucoma, NOTES eye injury/surgery, wears glasses or contacts. Ear/Nose/Throat: The patient denies allergies, denies hayfever, denies ear infections, and denies bloody noses. Cardiovascular: The patient denies chest pain, denies heart disease, NOTES high blood pressure,denies cardiac stent, denies prior heart attack, denies irregular heart beat, denies high cholesterol, denies poor circulation, denies heart failure, other cardiac issues, denies claudication, denies cold feet, denies peripheral arterial stent. Respiratory: The patient denies tuberculosis, denies pneumonia, denies frequent cough, denies pulmonary embolism, denies shortness of breath, and denies coughing up blood. Gastrointestinal: The patient denies difficulty swallowing, denies acid reflux, denies ulcers, denies vomiting, denies jaundice/hepatitis, denies gallbladder problems, NOTES black or tarry stools, denies hemorrhoids, NOTES bleeding from rectum, denies diverticulitis, denies constipation, denies diarrhea, denies loss of stool control, and denies hernias. Kidney/Bladder: The patient denies kidney stones, denies urine infections, and denies bloody urine. Skin: The patient denies a history of skin cancer, denies bleeding/changing moles, and denies a history of skin rash. Neurologic: The patient denies a history of epilepsy/convulsions, denies headaches, denies head/spinal injuries, and denies stroke/TIA. Psychiatric: The patient denies psychiatric medications, denies depression, and denies voices, denies substance abuse. Endocrine: The patient denies thyroid disorders, denies diabetes, and denies hormonal problems. Hematologic: The patient denies a history of bruising, denies bleeding, and denies anemia, denies blood clots. Infections: The patient denies a history of measles and mumps, denies rheumatic fever, and denies sexually transmitted diseases. Musculoskeletal: The patient denies back pain/injury, denies back problems, denies sciatica, denies knee/foot trouble, denies arthritis, or denies gout. When was patient's last Mammogram screening? N/A Last Colonoscopy: 2013 Sheela Barragan RN I have confirmed and edited as necessary, the PFSH and ROS obtained by others. Fredi Geiger PA-C PHYSICAL EXAMINATION: General: The patient is 66 year old male, well nourished, well hydrated in no acute distress. The patient is oriented to time, place, and person. VITALS: Blood pressure 122/74, pulse 98, temperature (!) 35.6 ?C (96.1 ?F), height 185.4 cm (6' 1), (more content not included)... [facility] 07-07-2021 History of Present illness Narrative HISTORY AND PHYSICAL Meg Huff 1955 REFERRING PHYSICIAN: Self CHIEF COMPLAINT: Consult (colonoscopy screening) HPI: The patient is a 66 year old male referred for endoscopy. Meg notes a history of ulcerative colitis. He previously followed with Dr. James for this, states last evaluation was 2016. Has not seen speech lang path therapist recently and takes no medication for this. He is now noting some blood in his stools and is concerned the UC is flaring up. Patient denies any weight changes, black tarry stools or abdominal pain. Denies family history of colon issues. The patient notes no upper GI complaints. Meg has undergone prior endoscopy. Last colonoscopy 06/22/16. Biopsies at that time showed chronic active colitis in the left colon, negative for dysplasia. Patient denies chest pain, shortness of breath or recent hospitalizations. Denies problems with sedation in the past. PAST MEDICAL HISTORY Diagnosis Date Heart murmur HTN (hypertension) Ulcerative colitis (HCC) PAST SURGICAL HISTORY Procedure Laterality Date PAST SURGICAL HISTORY OF right eye surgery age 11 VASECTOMY UNI/BI SPX W/POSTOP SEMEN EXAMS Current Outpatient Medications Medication Sig bwuhw-1-edu-onp-leb-dxit oil 1,050 mg(300 mg -675 mg-75 mg) cap Take by mouth. metoprolol succinate XL, long acting, (TOPROL XL) 100 mg ORAL Tb24 Take 50 mg by mouth once daily. No current facility-administered medications for this visit. ALLERGIES: Penicillins PERSONAL HISTORY: Social History Tobacco Use Smoking status: Former Smoker Types: Cigarettes Quit date: 05/03/1978 Years since quittin.2 Smokeless tobacco: Never Used Vaping Use Vaping Use: Never used Substance Use Topics Alcohol use: No Drug use: No FAMILY HISTORY: FAMILY HISTORY Problem Relation Age of Onset Stroke Paternal Grandmother Diabetes Paternal Grandfather REVIEW OF SYMPTOMS: The review of systems data was entered by the nurse and reviewed by ny Nursing Notes: Sheela Barragan RN 07/07/2021 8:17 AM Signed REVIEW OF SYSTEMS: General: The patient denies fatigue, denies weight loss, denies weight gain, denies feeling hot, and denies feelings of cold. Eyes: The patient denies glaucoma, NOTES eye injury/surgery, wears glasses or contacts. Ear/Nose/Throat: The patient denies allergies, denies hayfever, denies ear infections, and denies bloody noses. Cardiovascular: The patient denies chest pain, denies heart disease, NOTES high blood pressure,denies cardiac stent, denies prior heart attack, denies irregular heart beat, denies high cholesterol, denies poor circulation, denies heart failure, other cardiac issues, denies claudication, denies cold feet, denies peripheral arterial stent. Respiratory: The patient denies tuberculosis, denies pneumonia, denies frequent cough, denies pulmonary embolism, denies shortness of breath, and denies coughing up blood. Gastrointestinal: The patient denies difficulty swallowing, denies acid reflux, denies ulcers, denies vomiting, denies jaundice/hepatitis, denies gallbladder problems, NOTES black or tarry stools, denies hemorrhoids, NOTES bleeding from rectum, denies diverticulitis, denies constipation, denies diarrhea, denies loss of stool control, and denies hernias. Kidney/Bladder: The patient denies kidney stones, denies urine infections, and denies bloody urine. Skin: The patient denies a history of skin cancer, denies bleeding/changing moles, and denies a history of skin rash. Neurologic: The patient denies a history of epilepsy/convulsions, denies headaches, denies head/spinal injuries, and denies stroke/TIA. Psychiatric: The patient denies psychiatric medications, denies depression, and denies voices, denies substance abuse. Endocrine: The patient denies thyroid disorders, denies diabetes, and denies hormonal problems. Hematologic: The patient denies a history of bruising, denies bleeding, and denies anemia, denies blood clots. Infections: The patient denies a history of measles and mumps, denies rheumatic fever, and denies sexually transmitted diseases. Musculoskeletal: The patient denies back pain/injury, denies back problems, denies sciatica, denies knee/foot trouble, denies arthritis, or denies gout. When was patient's last Mammogram screening? N/A Last Colonoscopy: 2013 Sheela Barragan RN I have confirmed and edited as necessary, the PFSH and ROS obtained by others. Fredi Geiger PA-C PHYSICAL EXAMINATION: General: The patient is 66 year old male, well nourished, well hydrated in no acute distress. The patient is oriented to time, place, and person. VITALS: Blood pressure 122/74, pulse 98, temperature (!) 35.6 C (96.1 F), height 185.4 cm (6' 1), weight 134.4 kg (296 lb 6.4 oz), SpO2 95 %. Body mass index is 39.11 kg/m . HEENT: Normal cephalic, ataumatic, pupils are equally round, sclera are anicteric, mucous membranes are moist, oropharynx is clear. Neck has no masses, asymmetry or lymphadenopathy. Respiratory: Clear to auscultation and percussion. Normal respiratory excursion and pattern. Cardiac: Examination is regular rate and rhythm. Normal S1/S2 Abdominal exam: Soft, nontender, with no palpable masses. No hepatosplenomegaly. No palpable hernias. Extremities: no clubbing, cyanosis or edema. No adenopathy. LABORATORY VALUES: As Noted RADIOLOGIC STUDIES: As Noted Assessment IMPRESSION: rectal bleeding, history of ulcerative colitis-not currently on medication PLAN: I have reviewed my findings with the surgeon. Will plan for lower endoscopy. We discussed the risks and benefits of the planned endoscopy. I have informed the patient that complications can occur including failure to complete the endoscopy and perforation. The patient had the opportunity to ask questions concerning the planned endoscopy. My staff has also explained the procedure to the patient in understandable terms and has given the patient printed material concerning the procedure. The patient freely consents to surgery. The patient was offered a surgery/procedure at a [facility] facility. I have counseled the patient regarding the risk of exposure to and/or potential harm posed by the COVID-19 virus with having a surgery/procedure at this time versus the risk of delaying the surgery/procedure. It is not possible to know either the risk of delaying the surgery or procedure or chance of getting an infection with perfect accuracy, but a joint decision was made between the patient and myself to proceed at this time with endoscopy. Recommend establishing with Gastroenterology for long-term management of ulcerative colitis I plan to use Golytely bowel preparation Diagnoses: (Z87.19) History of ulcerative colitis (primary encounter diagnosis) (K62.5) Rectal bleeding I spent a total of 32minutes on the date of the service which included preparing to see the patient, [id number] patient care, completing clinical documentation, obtaining and/or reviewing separately obtained history, performing a medically appropriate examination, counseling and educating the patient/family/caregiver, ordering medications, tests, or procedures and communicating with other HCPs (not separately reported). Fredi Geiger PA-C documented in this encounter [facility] 07-07-2021 Nurse Note REVIEW OF SYSTEMS: General: The patient denies fatigue, denies weight loss, denies weight gain, denies feeling hot, and denies feelings of cold. Eyes: The patient denies glaucoma, NOTES eye injury/surgery, wears glasses or contacts. Ear/Nose/Throat: The patient denies allergies, denies hayfever, denies ear infections, and denies bloody noses. Cardiovascular: The patient denies chest pain, denies heart disease, NOTES high blood pressure,denies cardiac stent, denies prior heart attack, denies irregular heart beat, denies high cholesterol, denies poor circulation, denies heart failure, other cardiac issues, denies claudication, denies cold feet, denies peripheral arterial stent. Respiratory: The patient denies tuberculosis, denies pneumonia, denies frequent cough, denies pulmonary embolism, denies shortness of breath, and denies coughing up blood. Gastrointestinal: The patient denies difficulty swallowing, denies acid reflux, denies ulcers, denies vomiting, denies jaundice/hepatitis, denies gallbladder problems, NOTES black or tarry stools, denies hemorrhoids, NOTES bleeding from rectum, denies diverticulitis, denies constipation, denies diarrhea, denies loss of stool control, and denies hernias. Kidney/Bladder: The patient denies kidney stones, denies urine infections, and denies bloody urine. Skin: The patient denies a history of skin cancer, denies bleeding/changing moles, and denies a history of skin rash. Neurologic: The patient denies a history of epilepsy/convulsions, denies headaches, denies head/spinal injuries, and denies stroke/TIA. Psychiatric: The patient denies psychiatric medications, denies depression, and denies voices, denies substance abuse. Endocrine: The patient denies thyroid disorders, denies diabetes, and denies hormonal problems. Hematologic: The patient denies a history of bruising, denies bleeding, and denies anemia, denies blood clots. Infections: The patient denies a history of measles and mumps, denies rheumatic fever, and denies sexually transmitted diseases. Musculoskeletal: The patient denies back pain/injury, denies back problems, denies sciatica, denies knee/foot trouble, denies arthritis, or denies gout. When was patient's last Mammogram screening? N/A Last Colonoscopy: 2013 Sheela Barragan RN documented in this encounter [facility] Evaluation + Plan note Future Appointments Appointment Date:03/07/2024 09:15:00 AM Scheduled Provider:SAMANTHA GILLESPIE DO Location:[facility] Appointment Type: OV Future Scheduled TestsTSH with Reflex to FT4 02/13/24Prostate Specific Antigen 02/13/24A1C Hemoglobin 02/13/24Complete Blood Count 02/13/24Lipid Profile 02/13/24Albumin/Creatinine Ratio, Random Urine 02/13/24Complete Metabolic Panel 02/13/24 [facility] Evaluation + Plan note Future Appointments Appointment Date:05/02/2024 10:30:00 AM Scheduled Provider:SAMANTHA GILLESPIE DO Location:[facility] Appointment Type:PC OV Future Scheduled TestsAlbumin/Creatinine Ratio, Random Urine 02/13/24 [facility] Evaluation note Diagnosis Ulcerative colitis with complication, unspecified location (HCC)- [facility] Diagnosis History of ulcerative colitis- Primary Personal history of other diseases of digestive system Rectal bleeding Hemorrhage of rectum and anus documented in this encounter [facility] note* Diagnosis Onset Date Resolution Status Ulcerative colitis [facility] Work Phone: Evaluation note* Diagnosis Onset Date Resolution Status Ulcerative colitis chronic Ulcerative colitis [facility] Work Phone: Evaluation note* Diagnosis Onset Date Resolution Status Admit Date Ulcerative colitis chronic 2024 9:06am [facility] Work Phone: Hospital course Narrative No data available for this section [facility] Hospital Discharge instructions No data available for this section [facility] Progress note No data available for this section [facility] Reason for referral (narrative)* Outpatient Procedure (Routine) - Pending Review Specialty Diagnoses / Procedures Referred By Renay tapia Referred To Contact [facility] Diagnoses Ulcerative colitis with complication, unspecified location (HCC) Procedures COLONOSCOPY DIAGNOSTIC COLONOSCOPY FLX DX W/COLLJ SPEC WHEN PFRMD Fredi Geiger PA-C [address] [place] [address] [facility] [address] [place] [id number] Referral ID Status Reason Start Date Expiration Date Visits Requested Visits Authorized [id number] Pending Review Auto-Generat ed Referral 07/07/2021 07/07/2022 [address] [facility]No reason for referral [facility] Work Phone: Summary Purpose Family History No Family History Records FoundNo Family History Records FoundNo Family History Records Found No data available for this section No Family History Records Found No data available for this section No Family History Records Found Advance Directives No Advanced Directives Records Found Advance Directive Response Recorded Date/ Time Living Will No December 16, 2021 9:18am Power of Monument Stonecutter No December 9:18am Advance Directive Response Recorded Date/ Time Living Will No December 16, 2021 8:18am Power of Monument Stonecutter No December 8:18am Chief Complaint and Reason for Visit Chief Complaint COLON PERFORMED BY Aime HUTCHISON PT WANTS TO FU INT LABS Reason for Visit Ulcerative colitis Chief Complaint 2 WK FU 3 M FU EORDER Reason for Visit Ulcerative colitis Ulcerative colitis Chief Complaint Admit Date UC Flare Up December 12, 2024 9:06am Reason for Visit Admit Date Ulcerative colitis December 12, 2024 9:06am Additional Source Comments (unrecognized sect ion and content) No Status Records FoundNo Status Records FoundNo Status Records FoundNo Status Records FoundNo Status Records Found INFORMATION SOURCE (unrecogn ized section and content) DATE CREATED AUTHOR 03/30/2021 [facility] DATE CREATED AUTHOR AUTHOR'S ORGANIZ ATION 07/06/2021 [facility] DATE CREATED AUTHOR AUTHOR'S ORGANIZ ATION 07/16/2021 [facility] DATE CREATED AUTHOR AUTHOR'S ORGANIZ ATION 05/02/2024 [facility] DATE CREATED AUTHOR AUTHOR'S ORGANIZ ATION 12/16/2024 [facility] Source Comments (unrecognize d section and content) In the event this informatio n is protected by the Federal Confidentiality of Alcohol and Drug Abuse Patient Records regulations: The Federal rules restrict any use of the information to criminally investigate or prosecute any alcohol or drug abuse patient.[facility] the event this information is protected by the Federal Confidentiality of Alcohol and Drug Abuse Patient Records regulations: The Federal rules restrict any use of the information to criminally investigate or prosecute any alcohol or drug abuse patient.[facility] Reason for Visit (unrecogniz ed section and content) Reason Comments 08-18-2021 [facility] Reason Comments Consult colonoscopy screenin g Care Teams (unrecognized sec tion and content) Hotel Valet Attendant Relationship Specialty Start Date End Date Mary Pacheco DO [address] [place] [id number] PCP - General Family Practice 07/07/21 Hotel Valet Attendant Relationship Specialty Start Date End Date Mary Pacheco DO [address] [place] [id number] PCP - [facility] 07/07/21 Team Status: Active Member Role Status Dates Mary Kinsey DO Family Provider Active Dr. Samantha Gillespie DO Primary Care Provider Active Team Status: Inactive Member Role Status Dates Dr. Samantha Gillespie DO Primary Care Provider, Referrin g Provider Active Dr. Jamie Maria DO Attending Provider Active Team Status: Inactive Member Role Status Dates Dr. Samantha Gillespie DO Primary Care Provider Active Dr. Jamie Maria DO Attending Provider, Referring Provider Active Team Status: Active Member Role/Relationship Status Dates Mary Kinsey DO Family Provider Active Dr. Samantha Gillespie DO Primary Care Provider Active Team Status: Inactive Member Role/Relationship Status Dates Dr. Samantha Gillespie DO Primary Care Provider Active Start: December 12, 2024 End: December 12, 2024 Dr. Samantha Gillespie DO Referring Provider Active Start: December 12, 2024 End: December 12, 2024 NUZHAT Cook Attending Provider Active Start: December 12, 2024 End: December 12, 2024 Goals (unrecognized section and content) Goals may be documented in a n alternate sectionGoals may be documented in an alternate section No data available for this section No data available for this sectionGoals may be documented in an alternate section FOR RECORDS PERTAINING TO PATIENTS WHO ARE OR HAVE BEEN ENROLLED IN A CHEMICAL DEPENDENCY/SUBSTANCEABUSE PROGRAM, SOME INFORMATION MAY BE OMITTED. This clinical summary was aggregated from multiple sources. Caution should be exercised in using it in the provision of clinical care. This summary normalizes information from multiple sources, and as a consequence, information in this document may materially change the coding, format and clinical context of patient data. In addition, data may be omitted in some cases. CLINICAL DECISIONS SHOULD BE BASED ON THE PRIMARY CLINICAL RECORDS. [facility]. provides no warranty or guarantee of the accuracy or completeness of information in this document.
[2024-12-21 16:38] LABS: Magnesium 2.1 mg/dL (1.5-2.2)
[2024-12-21 16:47] LABS: Potassium 2.5 mmol/L (3.3-5.1)
[2024-12-21 17:00] VITALS: BP 94/72; PULSE 90; RESP 14; O2SAT 97
--- NOTE | 2024-12-21 17:04 | EX.ED.DYSGE1 ---
HPI History of Present Illness Chief Complaint: Abn Labs Informant: patient Narrative Narrative: Patient is a 9-year-old male with history of ulcerative colitis, diabetes mellitus and hypertension presenting with low potassium on outpatient labs. Patient states he has been experiencing ulcerative colitis flare for the past 5 weeks or so. He has had frequent diarrhea throughout the day with associated bleeding. He had outpatient labs performed today which showed worsening hypokalemia and he was sent to the ER for replacement and further evaluation. He notes he did stop his mesalamine this last Tuesday (5 days ago). He has not been on any steroids recently. Denies any fever or chills. Has been feeling more short of breath the past few days and for the past few weeks been feeling generally lightheaded and dizzy. Denies any feeling of is going to pass out. Denies any associate abdominal pain. Outpatient labs reviewed from earlier today which showed worsening leukocytosis up to 16.7 (was 13.6 nine days ago ), and his hemoglobin increased to 12.3 from 11.8. Potassium level 2.6 with otherwise unremarkable BMP. Albumin down to 2.6 as well. [facility] Medical History Low serum potassium Loss of hearing Alcohol use Vertigo Hx of ulcerative colitis Shortness of breath on exertion Former smoker Fatigue History of edema Wears glasses Back pain History of diverticulitis Non-smoker Hypertension History of irregular heartbeat Diabetes mellitus Home Medications ?Medication ?Instructions ?Recorded ?Last Taken ?Type metoprolol succinate 25 mg 25 mg PO DAILY 11/26/21 12/17/21 06:30 History tablet,extended release 24 hr alfalfa 250 mg tablet 1,000 mg PO DAILY 12/16/21 Unknown History ascorbic acid (vitamin C) 500 mg 500 mg PO DAILY 12/16/21 Unknown History tablet (Vitamin C) cholecalciferol (vitamin D3) 50 50 mcg PO DAILY 12/16/21 Unknown History mcg (2,000 unit) capsule (Vitamin D3) ciprofloxacin HCl 500 mg tablet 500 mg PO BID #20 tabs 12/21/24 Unknown Rx (Cipro) hydrocortisone acetate 30 mg 30 mg HI QHS 12 days #12 ea 12/21/24 Unknown Rx rectal suppository metronidazole 500 mg tablet 500 mg PO TID #21 tabs 12/21/24 Unknown Rx potassium chloride 20 mEq 20 meq PO BID #14 tabs 12/21/24 Unknown Rx tablet,extended release(part/cryst) (Klor-Con M) prednisone 20 mg tablet 60 mg (3 x 20 mg) PO DAILY #15 12/21/24 Unknown Rx TABLETS Allergy/AdvReac Type Severity Reaction Status Date / Time Penicillins AdvReac Intermediate Unknown Verified 12/21/24 13:54 Surgical History Hx of eye surgery Hx of colonoscopy Social History Smoking Status: Former smoker ROS ROS ED Constitutional Constitutional ED: Denies chills or fever(s) ENT ENT ED: Denies sore throat Cardiovascular Cardiovascular: Denies chest pain Respiratory/Chest Respiratory/Chest: Reports dyspnea; Denies cough Gastrointestinal Gastrointestinal: Reports abdominal pain, diarrhea and melena; Denies nausea or vomiting Musculoskeletal Musculoskeletal: Denies arthralgias or myalgias Integumentary Denies rash Neurologic Neurologic: Reports weakness Psychiatric Psychiatric: Denies anxiety Hematologic/Lymphatic Hematologic/Lymphatic: Denies easy bleeding or easy bruising EXAM Physical Exam Const Vital Signs: 12/21/24 13:53 12/21/24 15:24 12/21/24 15:52 Temperature 97.8 F Temperature Source Oral Pulse Rate 60 88 Respiratory Rate 18 20 H Respiratory Effort Normal Non-Labored Respiratory Pattern Normal Blood Pressure 165/137 H 89/62 L Blood Pressure [Lying] Blood Pressure [Sitting (for 1 minute prior to obtaining)] Blood Pressure [Standing (for 1 minute prior to obtaining)] Blood Pressure Mean 146 71 Blood Pressure Mean [Lying] Blood Pressure Mean [Sitting (for 1 minute prior to obtaining)] Blood Pressure Mean [Standing (for 1 minute prior to obtaining)] Pulse Ox 97 98 Oxygen Delivery Method Room Air Room Air 12/21/24 17:00 12/21/24 19:05 12/21/24 21:10 Temperature Temperature Source Pulse Rate 90 78 Respiratory Rate 14 Respiratory Effort Respiratory Pattern Blood Pressure 94/72 104/59 L Blood Pressure [Lying] 102/63 Blood Pressure [Sitting (for 1 minute prior to obtaining)] 104/71 Blood Pressure [Standing (for 1 minute prior to obtaining)] 104/65 Blood Pressure Mean 79 74 Blood Pressure Mean [Lying] 76 Blood Pressure Mean [Sitting (for 1 minute prior to obtaining)] 82 Blood Pressure Mean [Standing (for 1 minute prior to obtaining)] 78 Pulse Ox 97 Oxygen Delivery Method Room Air Positive well nourished and well developed General Appearance ED: well developed and NAD; Negative for pallor HEENT Reports dry mucous membranes HEENT Narrative: Mildly flushed cheeks Mouth ED: Yes dry mucous membranes Mouth: dry mucous membranes Eyes PERRL General Eye ED: Negative for pale conjunctiva Neck supple Chest Wall inspection of chest normal and palpation of chest normal Resp normal respiratory effort and clear to auscultation bilaterally Cardio regular rate and regular rhythm Cardio Narrative: Diastolic murmur present GI normal to inspection, nondistended, normoactive bowel sounds and non-tender Auscultation: normoactive bowel sounds Palpation: soft; Negative for tender or guarding Extremity normal to inspection General Extremety ED: Negative for edema General Extremity: Negative for edema Neuro oriented x3 Sensorium / Orientation: alert Motor Exam: general weakness Psych mental status grossly normal Skin no rashes or lesions noted General Skin Exam: Negative for jaundice or pallor MDM MDM MDM Narrative Medical decision making narrative: Patient valuated for outpatient labs which showed hypokalemia. He has been having ongoing diarrhea and melena. Patient labs reviewed from earlier today. Will recheck potassium also check phosphorus and magnesium. Potassium is low at 2.5 which is consistent with outpatient labs. Started oral and IV replacement. He overall well-appearing however in the ER his blood pressure does start to drop. Is given 2 L of IV fluid with improvement of his blood pressure. On repeat evaluation he states he started to feel better. Lactate is added on which is elevated at 2.2. Suspect this is more from volume depletion at this point given he is having ongoing diarrhea. His blood work from earlier today is more consistent with hemoconcentration and dehydration. Did discuss the case with Dr. Maria who in addition to replenishing his potassium does recommend start him on steroids and given 125 mg of Solu-Medrol in the ER. Will start him on Cipro and Flagyl (first dose given in the emergency room) and then prescribe prednisone 60 mg daily as well as hydrocortisone suppositories for further symptom control of his Crohn's flare. Patient is agreeable this plan of care. Will obtain orthostatic vital signs after his infusions are done. Anticipate if these are normal he can be discharged home. Patient is outpatient follow-up with GI this coming Tuesday for colonoscopy. Lab Data Attestation: I reviewed the patient's lab results. Labs: Laboratory Results - last 24 hr 12/21/24 12/21/24 15:30 17:25 Potassium 2.5 L* Lactic Acid 2.2 H* Phosphorus 3.4 Magnesium 2.1 Rhythm Strip Rhythm Strip: Sinus Tach Rate: 108 Ectopy: None EKG Initial EKG: Attestation: I personally reviewed and interpreted this EKG as follows: Interpretation: Sinus Tachycardia Comments: Sinus tachycardia at a rate of 108 bpm with PACs Left axis deviation Right bundle branch block Normal ST segment Prior EKG tracings: not available for review Prior: No Prior Discharge Plan Triage Chief Complaint: Abn Labs ED Provider: Lakisha Walls Dx/Rx/DC Orders Clinical Impression: Acute dehydration, Acute hypokalemia, Ulcerative colitis Instructions: Dehydration, ED Hypokalemia, ED Ulcerative Colitis Prescriptions: New ciprofloxacin HCl [Cipro] 500 mg tablet 500 mg PO BID Qty: 20 0RF prednisone 20 mg tablet 60 mg PO DAILY Qty: 15 0RF metronidazole 500 mg tablet 500 mg PO TID Qty: 21 0RF hydrocortisone acetate 30 mg suppository 30 mg HI QHS 12 Days Qty: 12 0RF potassium chloride [Klor-Con M20] 20 mEq tablet,ER particles/crystals 20 meq PO BID Qty: 14 0RF No Action metoprolol succinate 25 mg tablet extended release 24 hr 25 mg PO DAILY ascorbic acid (vitamin C) [Vitamin C] 500 mg Tablet 500 mg PO DAILY cholecalciferol (vitamin D3) [Vitamin D3] 50 mcg (2,000 unit) Capsule 50 mcg PO DAILY alfalfa 250 mg Tablet 1,000 mg PO DAILY Primary Care Provider: Wilmer Alexander Referrals: Jamie Maria DO [Med Staff - Active Staff, Gastroenterology] Wilmer Alexander DO [Primary Care Provider, Medical] Activity Restrictions/Additional Instructions: Follow-up with GI as scheduled for your colonoscopy. Take medication as prescribed. If you feel you are worsening, start to feel you are going to pass out or develop fever please return to the emergency room. Print Language: Syrian Disposition Disposition: Home, Self Care Discharge Date/Time: 12/21/24 21:31
[2024-12-21] MEDS: Potassium Chloride Oral Soln 20 MEQ/15 ML UDC 40 MEQ PO (17:26)
[2024-12-21] MEDS: Potassium Chloride 10mEq/100mL 10 MEQ/100 ML IV.SOLN. 100 MEQ IV BOLUS ×2 (17:26→19:02)
[2024-12-21 19:05] VITALS: BP 104/59; PULSE 78
[2024-12-21 21:10] VITALS: BP 102/63; BP 104/65; BP 104/71
[2024-12-21 21:25] LABS: Reflex Lactate? Y
== END 2024-12-21 21:31 | disposition home or self-care (01) ==
PROVIDERS: Emergency Provider Emergency Medicine; Visit Provider Emergency Medicine
DX: E86.0 Dehydration (principal); K51.911 Ulcerative colitis, unspecified with rectal bleeding; E11.9 Type 2 diabetes mellitus without complications; E87.6 Hypokalemia; I10 Essential (primary) hypertension; Z87.891 Personal history of nicotine dependence; D72.829 Elevated white blood cell count, unspecified; R06.00 Dyspnea, unspecified; R19.7 Diarrhea, unspecified
CPT/HCPCS: 36415; 80053; 83605; 83735; 83993; 84100; 84132; 85025; 87177; 87209; 87329; 87493; 87506; 93005; 96361; 96365; 96366; 96375; 99284; A4216

== ENCOUNTER → 2024-12-21 | Outpatient (CLI) | payer MEDICARE, OTHER, SELFPAY ==
[2024-12-21 10:56] LABS: Hematocrit 36.4 % (40-54); Hemoglobin 12.3 g/dL (13.0-16.5); Immature Granulocytes Count 0.090 X10^3/uL (0.0-0.0); Mean Corp Hgb Conc 33.8 g/dL (32-36); Mean Corpuscular Volume 86.5 fL (80-94); Mean Platelet Vol. 9.9 fl (6.2-12.0); NRBC Flagged by Analyzer 0 % (0-5); POSITIVE MORPHOLOGY YES; Platelet Count 558 K/mm3 (150-450); RBC Distribution Width CV 13.2 % (11.6-14.6); RBC Distribution Width SD 41.2 fl (35.1-43.9); Red Blood Count 4.21 M/mm3 (4.6-6.2); White Blood Count 16.7 K/mm3 (4.4-11.0)
[2024-12-21 11:11] LABS: Differential Indicated SCAN CRITERIA MET
[2024-12-21 12:35] LABS: AST(SGOT) 20 U/L (<=37); Alanine Aminotransfer ALT/SGPT 17 U/L (<=46); Albumin, Serum 2.6 g/dL (3.4-4.8); Alkaline Phosphatase 131 U/L (40-129); Anion Gap 15 (5-15); BUN 17 mg/dL (4-19); BUN/Creat Ratio 17.2 RATIO (10-20); Calcium,Total 7.9 mg/dL (7.6-11.0); Carbon Dioxide 22.1 mmol/L (21.0-32.0); Chloride 98 mmol/L (98-108); Globulin 3.4 g/dL (2.2-4.2); Glucose 181 mg/dL (70-99)
[2024-12-21 14:08] LABS: Potassium 2.6 mmol/L (3.3-5.1)
[2024-12-24 20:08] LABS: Calprotectin, Stool 3690 ug/g (0-120)
== END | disposition home or self-care (01) ==
PROVIDERS: Referring Provider Student in an Organized Health Care Education/Training Program; Visit Provider Student in an Organized Health Care Education/Training Program
DX: K51.911 Ulcerative colitis, unspecified with rectal bleeding (principal); R19.7 Diarrhea, unspecified
CPT/HCPCS: 36415; 80053; 83993; 85025; 87177; 87209; 87329; 87493; 87506

== ENCOUNTER → 2024-12-31 | Outpatient (CLI) | payer MEDICARE, OTHER, SELFPAY ==
--- OUTSIDE RECORDS SUMMARY | 2024-05-01 10:51 | XMS RPT_ITS ---
Author Name Auto Generated Organization [facility] Care Team Providers Care Leaf Sucker Operator Name Role Phone SAMANTHA GILLESPIE DO Attending Unavailable SAMANTHA GILLESPIE DO Primary Care Unavailable SAMANTHA GILLESPIE DO Primary Care Unavailable SAMANTHA GILLESPIE DO Attending Unavailable PROBLEMS No Problem Records Found PROCEDURES No Procedure Records Found RESULTS CBC Collected: 5 9:54 AM Status: F Source: [facility] TYPE CODE TESTS RESULT OUT OF RANGE REFERENCE UNITS LAB WBC(LOINC) WBC 10.8 4.5-10.8 10 3/mcL LAB RBCCT(LOINC) RBC 4.60 4.50-6.00 10 6/mcL LAB HGB(LOINC) Hgb 13.9 13.0-17.5 G/dL LAB HCT(LOINC) Hct 40.3 40.0-52.0 % LAB MCV(LOINC) MCV 87.7 81.0-100.0 fL LAB MCH(LOINC) MCH 30.3 27.0-33.0 pg LAB MCHC(LOINC) MCHC 34.5 32.0-36.0 G/dL LAB RDW(LOINC) RDW 13.7 11.5-15.5 % LAB PLT(LOINC) Platelet 268 150-450 10 3/mcL LAB MPV(LOINC) MPV 8.0 6.4-10.5 fL Performed By: #### LIPID, CM P, TSHR, A1C, GFR, CBC, PSA, ADIFF, ANEU #### [address] [address] .AUTO DIFF Collected: 05/01/2024 9:54 AM Status: F Source: [facility] TYPE CODE TESTS RESULT OUT OF RANGE REFERENCE UNITS LAB VELVET(LOINC) Neutrophil % 67.2 50.0-75.0 % LAB LYM(LOINC) Lymphocyte % 22.5 20.0-40.0 % LAB MON(LOINC) Monocyte % 7.1 2.0-13.0 % LAB EO(LOINC) Eosinophil % 2.8 0.0-7.0 % LAB BAS(LOINC) Basophil % 0.4 0.0-2.5 % LAB ABLYM(LOINC) Lymphocyte, Absolute 2.4 0.9-4.3 10 3/mcL LAB DELFINO(LOINC) Monocyte, Absolute 0.8 0.1-1.4 10 3/mcL LAB AEOS(LOINC) Eosinophil, Absolute 0.3 0.0-0.7 10 3/mcL LAB ABAS(LOINC) Basophil, Absolute 0.0 0.0-0.2 10 3/mcL Performed By: #### LIPID, CM P, TSHR, A1C, GFR, CBC, PSA, ADIFF, ANEU #### [address] [address] .NEUABS Collected: 9:54 AM Status: F Source: [facility] TYPE CODE TESTS RESULT OUT OF RANGE REFERENCE UNITS LAB ANEU(LOINC) Neutrophil, Absolute 7.3 2.3-8.1 10 3/mcL Performed By: #### LIPID, CM P, TSHR, A1C, GFR, CBC, PSA, ADIFF, ANEU #### [address] [address] PSA Collected: 05/01/2024 9:54 AM Status: F Source: [facility] TYPE CODE TESTS RESULT OUT OF RANGE REFERENCE UNITS LAB PSA(LOINC) Prostate Specific Antigen 3.45 0.00-4.00 ng/mL Performed By: #### LIPID, CM P, TSHR, A1C, GFR, CBC, PSA, ADIFF, ANEU #### [address] [address] CMP Collected: 05/01/2024 9:54 AM Status: F Source: [facility] TYPE CODE TESTS RESULT OUT OF RANGE REFERENCE UNITS LAB GLU(LOINC) Glucose Level 165 High 80-115 mg/dL LAB NA(LOINC) Sodium Level 138 136-145 mmol/L LAB K(LOINC) Potassium Level 4.1 3.5-5.1 mmol/L LAB CL(LOINC) Chloride 102 98-107 mmol/L LAB CO2(LOINC) CO2 26 23-31 mmol/L LAB EBAL(LOINC) Electrolyte Balance 10.0 4.0-15.0 mEq/L LAB BUN(LOINC) BUN 15 7-18 mg/dL LAB CRE(LOINC) Creatinine Lvl (s) 0.71 0.70-1.30 mg/dL Result Comment: Testing perf ormed on Siemens Dimension EXL analyzer using a modified kinetic Elli technique. LAB BC(LOINC) BUN/Creatinine Ratio 21 7-27 ratio LAB CA(LOINC) Calcium Lvl 9.4 8.4-10.2 mg/dL LAB PROT(LOINC) Total Protein 7.8 6.4-8.2 G/dL LAB ALB(LOINC) Albumin Level 3.8 3.4-4.8 G/dL LAB GLB(LOINC) Globulin 4.0 G/dL LAB AG(LOINC) A/G Ratio 1.0 Low 1.1-2.5 ratio LAB BILT(LOINC) Bili Total 0.9 0.2-1.0 mg/dL Result Comment: Use of this assay is not recommended for patients undergoing treatment with eltrombopag due to the potential for falsely elevated results. LAB AP(LOINC) Alk Phos 102 40-135 U/L LAB AST(LOINC) AST/SGOT 16 10-40 U/L LAB ALT(LOINC) ALT/SGPT 31 16-63 U/L Performed By: #### LIPID, CM P, TSHR, A1C, GFR, CBC, PSA, ADIFF, ANEU #### [address] [place], [place] [address] TSHR Collected: 9:54 AM Status: F Source: [facility] TYPE CODE TESTS RESULT OUT OF RANGE REFERENCE UNITS LAB TSH(LOINC) TSH 1.56 0.36-3.74 mcIU/mL Performed By: #### LIPID, CM P, TSHR, A1C, GFR, CBC, PSA, ADIFF, ANEU #### [address] [place], [place] [address] .GFR Collected: 9:54 AM Status: F Source: [facility] TYPE CODE TESTS RESULT OUT OF RANGE REFERENCE UNITS LAB GFRAA([facility]) GFR 135 ml/min/1. 73sqm Result Comment: GFR Population mean for , Non- Americans Ages 20-29 = 116 mL/min/1.73 sq.m. Ages 30-39 = 107 mL/min/1.73 sq.m. Ages 40-49 = 99 mL/min/1.73 sq.m. Ages 50-59 = 93 mL/min/1.73 sq.m. Ages 60-69 = 85 mL/min/1.73 sq.m. Ages 70+ = 75 mL/min/1.73 sq.m. Chronic Kidney Disease: Less than 60 mL/min/1.73 square meters End Stage Renal Disease: Less than 15 mL/min/1.73 square meters LAB GFRNO(LOINC) GFR Non- 111 ml/min/1. 73sqm Result Comment: GFR Population mean for , Non- Americans Ages 20-29 = 116 mL/min/1.73 sq.m. Ages 30-39 = 107 mL/min/1.73 sq.m. Ages 40-49 = 99 mL/min/1.73 sq.m. Ages 50-59 = 93 mL/min/1.73 sq.m. Ages 60-69 = 85 mL/min/1.73 sq.m. Ages 70+ = 75 mL/min/1.73 sq.m. Chronic Kidney Disease: Less than 60 mL/min/1.73 square meters End Stage Renal Disease: Less than 15 mL/min/1.73 square meters Performed By: #### LIPID, CM P, TSHR, A1C, GFR, CBC, PSA, ADIFF, ANEU #### [address] [place], [place] [address] LIPID Collected: 05/01/2024 9:54 AM Status: F Source: [facility] TYPE CODE TESTS RESULT OUT OF RANGE REFERENCE UNITS LAB CHOL(LOINC) Cholesterol 160 0-200 mg/dL Result Comment: Cholesterol Reference Interval: Less than 200 Desirable 200-239 Borderline high risk 240 and above High risk LAB TRIG(LOINC) Triglycerides 99 0-150 mg/dL Result Comment: Triglyceride Reference Interval: Less than 150 Normal 150-199 Borderline high risk 200-499 High risk 500 or higher Very high risk LAB HD(LOINC) HDL Cholesterol 43 40-60 mg/dL LAB LDL(LOINC) LDL Cholesterol 97 0-130 mg/dL Performed By: #### LIPID, CM P, TSHR, A1C, GFR, CBC, PSA, ADIFF, ANEU #### [address] [place], [place] [address] A1C Collected: 9:54 AM Status: F Source: [facility] TYPE CODE TESTS RESULT OUT OF RANGE REFERENCE UNITS LAB A1C(LOINC) Hgb A1c 7.9 High 4.3-6.4 % LAB eAG(LOINC) Est Avg Glucose 180 mg/dL Result Comment: Estimated Av erage Glucose calculated by equation ((28.7xA1C)- 46.7) Estimated average glucose (eAG) is a calculated value from Hemoglobin A1C and is account services representative of the average blood glucose level in the last 2-3 month period. Normal range: less than 114 mg/dL Performed By: #### LIPID, CM P, TSHR, A1C, GFR, CBC, PSA, ADIFF, ANEU #### [address] [place], [place] [address] XR CHEST 2 VIEWS Observed: 02/13/2024 10:30 AM Status: F Source: [facility] ORIGINAL EXAMINATION: TWO XRAY VIEWS OF THE CHEST 02/13/2024 10:21 am COMPARISON: 10/04/2017 HISTORY: ORDERING SYSTEM PROVIDED HISTORY: Reason for Exam: Cough FINDINGS: The cardiomediastinal silhouette demonstrates a stable appearance. There is asymmetric elevation of the right hemidiaphragm. No consolidative opacity, pleural effusion, or pneumothorax identified. There are moderate degenerative changes of the spine. There are no acute osseous abnormalities. IMPRESSION: No acute radiographic findings. I have personally reviewed the images of this examination and agree with the resident's findings and interpretation. Interpreted by: Jake Faust Preliminary Report By: Ray Sparrow Electronically signed By Jake Faust Dictated Date: 02/13/2024 10:25:32 AM Prelim Date: 02/13/2024 10:40:28 AM Sign Date: 02/13/2024 10:40:28 AM Ordering Provider: SAMANTHA GILLESPIE ALLERGIES No Allergies Records Found ENCOUNTERS ADMIT/DISCHARGE ACCOUNT NUMBER ADMITTING ENCOUNTER CLASS LOC ATION SOURCE 05/01/2024/ 5 [id number] [facility] 02/13/2024/ 4 [id number] [facility] PAYERS ENCOUNTER GUARANTOR PAYER SUBSCRIBER SOURCE 05/01/2024 MEG ELIZABETHOB: [place] [email or web address]: (HP) Primary Insurance:MEDICARE PART B INSCOPolicy Number: [id number] Date:1083-76-77Nyma Name:[address] [address]LV: MEG ELIZABETHOB: [id number] [place] [address]Nij: (HP) (WP) [facility] 05/01/2024 Secondary Insurance:[facility] INSCOPolicy Number: [id number] Date:8526-13-59Iezq Name:[address] [address]OY: MEG ELIZABETHOB: [id number] [place] [address]Mni: (HP) (WP) [facility] 02/13/2024 MEG FUNES: [place] [email or web address]: (HP) Primary Insurance:MEDICARE PART B INSCOPolicy Number: [id number] Date:6992-03-80Zbbr Name:[address] [address] [facility] [place] [address]EX: MEG ELIZABETHOB: [id number] [facility] [address]Kol: (HP) (WP) [facility] 02/13/2024 Secondary Insurance:[facility] INSCOPolicy Number: [id number] Date:1349-52-54Asxj Name:[facility] [address] [address]RV: MEG ELIZABETHOB: [id number] [facility] [address]Uwe: (HP) (WP) [facility]
[2024-12-31 11:08] LABS: AST(SGOT) 16 U/L (<=37); Alanine Aminotransfer ALT/SGPT 15 U/L (<=46); Albumin, Serum 2.8 g/dL (3.4-4.8); Alkaline Phosphatase 73 U/L (40-129); Anion Gap 10 (5-15); BUN 8 mg/dL (4-19); BUN/Creat Ratio 14.6 RATIO (10-20); Calcium,Total 8.0 mg/dL (7.6-11.0); Carbon Dioxide 23.5 mmol/L (21.0-32.0); Chloride 102 mmol/L (98-108); Globulin 2.8 g/dL (2.2-4.2); Glucose 199 mg/dL (70-99); Potassium 4.2 mmol/L (3.3-5.1)
== END | disposition home or self-care (01) ==
LOC: LAB 08:53
PROVIDERS: Referring Provider Internal Medicine Gastroenterology; Visit Provider Internal Medicine Gastroenterology
DX: E87.6 Hypokalemia (principal); E86.0 Dehydration
CPT/HCPCS: 36415; 80053

== ENCOUNTER 2025-01-02 10:10 | Day surgery (SDC) | payer MEDICARE, OTHER, SELFPAY ==
--- NOTE | 2024-12-24 09:11 | PAT.ANESEVAL ---
Pre-Assessment Diagnosis/Proposed Procedure Planned Operative Procedure(s): CSCOPE Anesthesia History Anesthesia History - health services coordinator: Anesthesia History - health services coordinator Hx Hospitalization No 12/20/24 12:11 Any Problems With Anesthesia No 12/20/24 12:11 Cholinesterase deficiency No 12/20/24 12:11 You/Your Family Experience No 12/20/24 12:11 fever (hyperthermia) with Relationship Recent Exposure to Contagious No 12/17/21 08:49 Disease Does patient have nerve No 12/20/24 12:11 stimulator Patient instructed to have device shut off --Does patient have Pacemaker or ICD? When Was Last Pacemaker Check QUESTION #4 FULL TEXT: You/Your Family Experience fever (hyperthermia) with Anesthesia Last Oral Intake Last Oral intake: Last Oral Intake NPO since Meds taken in AM with sips of water? Meds patient instructed to take am of surgery PONV PONV - health services coordinator: PONV - health services coordinator Female No 12/20/24 12:11 HX of Motion Sickness No 12/20/24 12:11 HX of N/V After Surgery No 12/20/24 12:11 Non-Smoker Yes 12/20/24 12:11 Duration of Surgery greater No 12/20/24 12:11 than 60 minutes Number of Risk Factors 1 12/20/24 12:11 PONV Score Low Risk 12/20/24 12:11 Height & Weight Height & Weight: Anesthesia: Height & Weight Height 6 ft 1 in 12/12/24 09:27 Respiratory Assessment Respiratory Assessment - health services coordinator: Respiratory Tract Infection Hx - health services coordinator Hx Respiratory Tract Infection No 12/20/24 12:11 STOP Sleep Apnea STOP Sleep Apnea - health services coordinator: STOP Sleep Apnea - health services coordinator Hx Hypertension Yes: CONTROLLED WITH MED 12/20/24 12:11 Hx Sleep Apnea No 12/20/24 12:11 CPAP BIPAP Do you snore loudly (louder No 12/20/24 12:11 than talking or can be heard Do you often feel tired/ No 12/20/24 12:11 fatigued/ sleepy during daytime? Has anyone observed you stop No 12/20/24 12:11 breathing during sleep? STOP Results Negative 12/20/24 12:11 QUESTION #5 FULL TEXT : Do you snore loudly (louder than talking or can be heard through closed doors)? Tobacco Use History Tobacco Use History - health services coordinator: Tobacco Use History - health services coordinator Tobacco Use Smoking Status Former smoker 12/20/24 12:11 Hx Tobacco Use No 12/20/24 12:11 Years Smoking Packs Smoked per Day Smoking Cessation Date was No - quit smoking greater 12/20/24 12:11 within the last 15 years than 15 years ago Hx Smoking Cessation Date Hx Smoking Cessation No 12/20/24 12:11 Counseling Hematologic Medial History Hematologic Hx - health services coordinator: Hematologic Medical Hx - flatbed driver Hx of Blood Transfusion No 12/20/24 12:11 Hx of Transfusion in last 3 No 12/20/24 12:11 Months Date of Last Transfusion (if within last 3 months) Ever experience any problems No 12/20/24 12:11 with transfusion(s)? Specify any problems Hx of Preganancy in last 3 N/A 12/20/24 12:11 Months Nurse Filling Out Transfusion DSCHRIBER 12/20/24 12:11 & Questions: Date: 12/20/24 12/20/24 12:11 Time: 12:14 12/20/24 12:11 Patient unable to answer at this time (ie. confused, unrespo /Reproduction History /Reproductive History - health services coordinator: /Reproductive Hx- health services coordinator Hx Now No 12/20/24 12:11 Gestational Age (in weeks): EDC: Hx Hx Para Hx Section SAB No 12/20/24 12:11 PFSH Medical History Low serum potassium Loss of hearing Alcohol use Vertigo Hx of ulcerative colitis Shortness of breath on exertion Former smoker Fatigue History of edema Wears glasses Back pain History of diverticulitis Non-smoker Hypertension History of irregular heartbeat Diabetes mellitus Home Medications ?Medication ?Instructions ?Recorded ?Last Taken ?Type metoprolol succinate 25 mg 25 mg PO DAILY 11/26/21 12/17/21 06:30 History tablet,extended release 24 hr alfalfa 250 mg tablet 1,000 mg PO DAILY 12/16/21 Unknown History ascorbic acid (vitamin C) 500 mg 500 mg PO DAILY 12/16/21 Unknown History tablet (Vitamin C) cholecalciferol (vitamin D3) 50 50 mcg PO DAILY 12/16/21 Unknown History mcg (2,000 unit) capsule (Vitamin D3) ciprofloxacin HCl 500 mg tablet 500 mg PO BID #20 tabs 12/21/24 Unknown Rx (Cipro) hydrocortisone acetate 30 mg 30 mg MD QHS 12 days #12 ea 12/21/24 Unknown Rx rectal suppository metronidazole 500 mg tablet 500 mg PO TID #21 tabs 12/21/24 Unknown Rx potassium chloride 20 mEq 20 meq PO BID #14 tabs 12/21/24 Unknown Rx tablet,extended release(part/cryst) (Klor-Con M) prednisone 20 mg tablet 60 mg (3 x 20 mg) PO DAILY #15 12/21/24 Unknown Rx TABLETS Allergy/AdvReac Type Severity Reaction Status Date / Time Penicillins AdvReac Intermediate Unknown Verified 12/21/24 13:54 Surgical History Hx of eye surgery Hx of colonoscopy Social History Smoking Status: Former smoker Audit: Pertinent Findings Pertinent Findings Additional pertinent findings: Potassium on redraw 12/21/2024. 2.5 mmol/L. Needs to be addressed prior to procedure. Note sent to primary provider. Recommendation Anesthesia Recommendation Anesthesia recommendation: F/U recommended (Redraw potassium 2.5 12/21/2024. Unable to give anesthesia with this potassium level. Needs to be addressed prior to surgery.)
[2024-12-24 13:49] LABS: AST(SGOT) 24 U/L (<=37); Alanine Aminotransfer ALT/SGPT 21 U/L (<=46); Albumin, Serum 2.7 g/dL (3.4-4.8); Alkaline Phosphatase 104 U/L (40-129); Anion Gap 10 (5-15); BUN 10 mg/dL (4-19); BUN/Creat Ratio 12.8 RATIO (10-20); Calcium,Total 7.8 mg/dL (7.6-11.0); Carbon Dioxide 22.6 mmol/L (21.0-32.0); Chloride 104 mmol/L (98-108); Globulin 2.9 g/dL (2.2-4.2); Glucose 229 mg/dL (70-99); Potassium 2.9 mmol/L (3.3-5.1)
[2025-01-02] VITALS (8 sets, daily range): BP systolic 82–107; BP diastolic 63–77; PULSE 71–95; RESP 14–16; TEMP 36.4–37.1; O2SAT 96–100; BMI 30.8
--- NOTE | 2025-01-02 10:16 | HP.PCM_ITS ---
HPI - General General Date of Admission: 01/02/25 Date of Service: 01/02/25 HPI Narrative MEG ALEXIS, is a 69 M who presents [MEG ALEXIS, is a 69 M who presents to the office today for follow-up. Colonoscopy 2021; Stool in the rectum and in the sigmoid colon. - Moderately active (Vinson Score 2) ulcerative colitis, unchanged since the last examination. Biopsied. - One 5 mm polyp at the hepatic flexure, removed with a hot snare. Resected and retrieved. - Severe diverticulosis in the recto-sigmoid colon, in the sigmoid colon, in the descending colon, at the splenic flexure, in the transverse colon, at the hepatic flexure and in the ascending colon. There was no evidence of diverticular bleeding. Last office visit with Jewels Mercado NP 02.16.24. Patient with a past medical history of ulcerative colitis. Patient having 1-2 bowel movements that are formed per day. Patient currently taking mesalamine. Last colonoscopy was in December 2021 with active colitis in the rectum. OV 9.. patient endorsing a flare in his UC over the past 4 weeks. He is having loose stool up to 4 times a day. He notices blood in his stool and in the bowl when he has a bowel movement. He has lower abdominal pain. He has cut out any in inflammatory foods in his diet. This has led to about a 10 pound weight loss over the past 4 weeks. Patient endorsing that he has never weighed this much. He does have an appetite. He continues with mesalamine. CBC W/Diff, Automated Today K51.90 - Ulcerative colitis, unspecified, without complications Comprehensive Metabolic Profil Today K51.911 - Ulcerative colitis, unspecified with rectal bleeding CRP Today K51.911 - Ulcerative colitis, unspecified with rectal bleeding ] [facility] Medical History Low serum potassium Loss of hearing Alcohol use Vertigo Hx of ulcerative colitis Shortness of breath on exertion Former smoker Fatigue History of edema Wears glasses Back pain History of diverticulitis Non-smoker Hypertension History of irregular heartbeat Diabetes mellitus Home Medications ?Medication ?Instructions ?Recorded ?Last Taken ?Type metoprolol succinate 25 mg 25 mg PO DAILY 11/26/21 06:30 History tablet,extended release 24 hr alfalfa 250 mg tablet 1,000 mg PO DAILY 12/16/21 U nknown History ascorbic acid (vitamin C) 500 mg 500 mg PO DAILY 12/16 Unknown History tablet (Vitamin C) cholecalciferol (vitamin D3) 50 50 mcg PO DAILY Unknown History mcg (2,000 unit) capsule (Vitamin D3) ciprofloxacin HCl 500 mg tablet 500 mg PO BID #20 tabs 12/21/24 Unknown Rx (Cipro) hydrocortisone acetate 30 mg 30 mg ND QHS 12 days #12 ea 12/21/24 Unknown Rx rectal suppository metronidazole 500 mg tablet 500 mg PO TID #21 tabs Unknown Rx prednisone 20 mg tablet 60 mg (3 x 20 mg) PO DAILY # 15 12/21/24 Unknown Rx TABLETS magnesium oxide 400 mg PO BID #60 caps 12/24 Unknown Rx potassium chloride 20 mEq 20 meq PO BID #14 tabs 12/31 Unknown Rx tablet,extended release(part/cryst) (Klor-Con M) Allergy/AdvReac Type Severity Reaction Status Date / Time Penicillins AdvReac Intermediate Unknown Verified 12/21/24 13:54 Surgical History Hx of eye surgery Hx of colonoscopy Social History Smoking Status: Former smoker ROS Constitutional Constitutional: Denies fatigue, fever(s), poor appetite, weight gain or weight loss Gastrointestinal Gastrointestinal: Denies belching, bloating, change in bowel habits, change in stool character, chewing difficulty, coffee ground emesis, constipation, cramping, diarrhea, dyspepsia, dysphagia, early satiety, excessive flatus, fecal incontinence, heartburn, hematemesis, hematochezia, hemorrhoids, loose stools, melena, nausea, odynophagia, rectal bleeding, tenesmus, vomiting or weight changes Physical Exam Const alert, oriented x3, no apparent distress and healthy appearing General Appearance: cooperative GI normal to inspection, nondistended, normoactive bowel sounds, soft to palpation, non-tender and non-distended Percussion: normal to percussion Rectal Exam: deferred Results Lab / Micro Data 12/24/24 12:51 Assessment & Plan Assessment/Plan (1) Ulcerative colitis: QUALIFIERS: Ulcerative colitis location: unspecified ulcerative colitis location Digestive disease complication type: with rectal bleeding Q ualified Code(s): K51.911 - Ulcerative colitis, unspecified with rectal bleeding PLAN: Assessment and Plan Assessment and Plan (1) Ulcerative colitis: Status: Chronic Qualifiers: Digestive disease complication type: with rectal bleeding Ulcerative colitis location: unspecified ulcerative colitis location Qualified Code(s): K 51.911 - Ulcerative colitis, unspecified with rectal bleeding Plan: Meg is a 69-year-old male patient here today for follow-up regarding his ulcerative colitis. Patient endorsing a flare over the past 4 weeks with loose stool up to 4 times per day with blood. He has had about a 10 pound weight loss over this time due to restricting his diet to anti-inflammatory foods. Patient's last colonoscopy was in 2021 with active colitis. He continues with mesalamine. Patient will undergo repeat colonoscopy at this time for assessment of his entire colon. Patient will also have blood work completed today which will include CBC, CMP and CRP. I advised to complete his stool testing which was ordered about a year ago. He will continue mesalamine in the meantime. Pending results of endoscopy patient may need started on a biologic medication such as Skyrizi. Follow-up after endoscopy. - Colonoscopy - Continue mesalamine - CBC, CMP and CRP - Stool calprotectin - Consider biologic therapy pending results - Follow-up after endoscopy Orders: Orders
[2025-01-02] MEDS: Lactated Ringers 1,000 ML 15 ML IV (10:46)
--- NOTE | 2025-01-02 10:57 | PCM.PRE.AN2 ---
ASA Classification* ASA Classification ASA Classification: 2 Assessment & Plan Anesthesia* Anesthesia Assessment Anesthesia Assessment: Discussed sedation and/or anesthesia options, risks, benefits, and alternatives with patient/parents/legal guardian/POA. Questions invited. The patient/parents/legal guardian/POA seems to understand and agrees to proceed with anesthesia plan. Reviewed the physical assessment, medical history, allergy history and patient home medications list prior to surgery/procedure/anesthetic and documented any changes. Performed airway and anesthesia risk assessments. Anesthesia Type Anesthesia Type: MAC History Source History Obtained from:: Patient and Chart Anesthesia Focused Assessment* Temperature: 98.2 F Pulse Rate: 95 Blood Pressure: 106/74 Respiratory Rate: 16 Pulse Ox: 100 Oxygen Delivery Method: Room Air Airway Assessment Mouth opens: >3 cm Mallampati Score: II Neck Range of motion (ROM): Full ROM Labs Anesthesia Preop lab: CBC WBC, (4.4-11.0) 16.7 K/mm3 H 12/21/24, 10:15 RBC, (4.6-6.2) 4.21 M/mm3 L 12/21/24, 10:15 Hgb, (13.0-16.5) 12.3 g/dL L 12/21/24, 10:15 Hct, (40-54) 36.4 % L 12/21/24, 10:15 Plt Count, (150-450) 558 K/mm3 H 12/21/24, 10:15 CHEMISTRY Potassium, (3.3-5.1) 4.2 mmol/L 12/31/24, 08:55 Sodium, (133-145) 135 mmol/L 12/31/24, 08:55 Magnesium, (1.5-2.2) 2.1 mg/dL 12/21/24, 15:30 Phosphorus, (2.7-4.5) 3.4 mg/dL 12/21/24, 15:30 BUN, (4-19) 8 mg/dL 12/31/24, 08:55 Creatinine, (0.70-1.20) 0.56 mg/dL L 12/31/24, 08:55 Glucose, (70-99) 199 mg/dL H 12/31/24, 08:55 POC Glucose, (74-106) 184 mg/dL H 12/17/21, 08:50 COAG Pre-Assessment Diagnosis/Proposed Procedure Planned Operative Procedure(s): CSCOPE Anesthesia History Anesthesia History - audience coordinator: Anesthesia History - audience coordinator Hx Hospitalization No 12/20/24 12:11 Any Problems With Anesthesia No 12/20/24 12:11 Cholinesterase deficiency No 12/20/24 12:11 You/Your Family Experience No 12/20/24 12:11 fever (hyperthermia) with Relationship Recent Exposure to Contagious No 01/02/25 10:34 Disease Does patient have nerve No 12/20/24 12:11 stimulator Patient instructed to have device shut off --Does patient have Pacemaker No 01/02/25 10:34 or ICD? When Was Last Pacemaker Check QUESTION #4 FULL TEXT: You/Your Family Experience fever (hyperthermia) with Anesthesia Last Oral Intake Last Oral intake: Last Oral Intake NPO since 19:00 01/02/25 10:34 Meds taken in AM with sips of Yes 01/02/25 10:34 water? Meds patient instructed to metoprolol @0715 01/02/25 10:34 take am of surgery PONV PONV - audience coordinator: PONV - audience coordinator Female No 12/20/24 12:11 HX of Motion Sickness No 12/20/24 12:11 HX of N/V After Surgery No 12/20/24 12:11 Non-Smoker Yes 12/20/24 12:11 Duration of Surgery greater No 12/20/24 12:11 than 60 minutes Number of Risk Factors 1 12/20/24 12:11 PONV Score Low Risk 12/20/24 12:11 Height & Weight Height & Weight: Anesthesia: Height & Weight Height 6 ft 1 in 01/02/25 10:34 Weight: 106 kg 01/02/25 10:34 Body Mass Index (BMI) 30.8 01/02/25 10:34 Respiratory Assessment Respiratory Assessment - audience coordinator: Respiratory Tract Infection Hx - audience coordinator Hx Respiratory Tract Infection No 12/20/24 12:11 STOP Sleep Apnea STOP Sleep Apnea - audience coordinator: STOP Sleep Apnea - audience coordinator Hx Hypertension Yes: CONTROLLED WITH MED 12/20/24 12:11 Hx Sleep Apnea No 12/20/24 12:11 CPAP BIPAP Do you snore loudly (louder No 12/20/24 12:11 than talking or can be heard Do you often feel tired/ No 12/20/24 12:11 fatigued/ sleepy during daytime? Has anyone observed you stop No 12/20/24 12:11 breathing during sleep? STOP Results Negative 12/20/24 12:11 QUESTION #5 FULL TEXT : Do you snore loudly (louder than talking or can be heard through closed doors)? 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 Specify any problems Hx of Preganancy in last 3 N/A 12/20/24 12:11 Months Nurse Filling Out Transfusion DSCHRIBER 12/20/24 12:11 & Questions: Date: 12/20/24 12/20/24 12:11 Time: 12:14 12/20/24 12:11 Patient unable to answer at this time (ie. confused, unrespo /Reproduction History /Reproductive History - audience coordinator: /Reproductive Hx- audience coordinator Hx Now No 12/20/24 12:11 Gestational Age (in weeks): EDC: Hx Hx Para Hx Section SAB No 12/20/24 12:11 Active Medications Active Medications: Current Medications Generic Name Dose Route Start Last Admin Trade Name Freq PRN Reason Stop Dose Admin Lactated Ringer's 1,000 mls @ 15 mls/hr 01/02/25 10:15 01/02/25 10:46 IV 15 mls/hr .Q48H LEROY Administration PFSH Medical History Low serum potassium Loss of hearing Alcohol use Vertigo Hx of ulcerative colitis Shortness of breath on exertion Former smoker Fatigue History of edema Wears glasses Back pain History of diverticulitis Non-smoker Hypertension History of irregular heartbeat Diabetes mellitus Home Medications ?Medication ?Instructions ?Recorded ?Last Taken ?Type metoprolol succinate 25 mg 25 mg PO DAILY 11/26/21 01/02/25 07:15 History tablet,extended release 24 hr alfalfa 250 mg tablet 1,000 mg PO DAILY 12/16/21 Unknown History ascorbic acid (vitamin C) 500 mg 500 mg PO DAILY 12/16/21 Unknown History tablet (Vitamin C) cholecalciferol (vitamin D3) 50 50 mcg PO DAILY 12/16/21 Unknown History mcg (2,000 unit) capsule (Vitamin D3) ciprofloxacin HCl 500 mg tablet 500 mg PO BID #20 tabs 12/21/24 Unknown Rx (Cipro) hydrocortisone acetate 30 mg 30 mg IN QHS 12 days #12 ea 12/21/24 Unknown Rx rectal suppository metronidazole 500 mg tablet 500 mg PO TID #21 tabs 12/21/24 Unknown Rx prednisone 20 mg tablet 60 mg (3 x 20 mg) PO DAILY #15 12/21/24 Unknown Rx TABLETS magnesium oxide 400 mg PO BID #60 caps 12/24/24 Unknown Rx potassium chloride 20 mEq 20 meq PO BID #14 tabs 12/31/24 Unknown Rx tablet,extended release(part/cryst) (Klor-Con M) Allergy/AdvReac Type Severity Reaction Status Date / Time Penicillins AdvReac Intermediate Unknown Verified 12/21/24 13:54 Surgical History Hx of eye surgery Hx of colonoscopy Social History Smoking Status: Former smoker Addt'l Information Additional Findings: > 4 METS; EGK - RBBB, PACs, Sinus tach Review of Systems (Anesthesia) ROS Narrative System reviewed and no additional complaints, except as documented. Physical Exam Const alert and oriented x3 Nutritional Appearance: obese Neck full ROM Resp normal respiratory effort and normal air movement Auscultation: clear to auscultation bilaterally Cardio regular rate and regular rhythm Back/Spine normal ROM Neuro oriented x3 and moves all extremities
--- NOTE | 2025-01-02 11:15 | COLBX_PTH ---
PATIENT: MEG ALEXIS LOC: EN U#:[id number] AGE/SX: 69/M ROOM: RE01/02/[address]: Dr. Jamie Maria DO : 1955 BED: DIS: 01/02/2025 SPEC #: [id number] RECD: 01/02/25 11:51 STATUS: BETTY REChica #: [id number] [place]: 01/02/25 11:[address]: Jamie Maria DEPT: SURGICAL PATHOLOGY RECD BY: Brenden Kumar ENTERED: 01/02/25 15:09 SP TYPE: COLON BX OT DR: DO Dr. Wilmer Valdes MD Lindsey Atanasov, PA Tissues: A - Cecum, NOS B - Ascending colon C - Transverse colon D - Descending colon E - Rectum, NOS Procedures: Surgery Specimen Level IV HEADER OPERATION: Colonoscopy with biopsy and stool culture PRE-OP DIAGNOSIS: Ulcerative colitis TISSUE SUBMITTED: A- Cecum biopsy, B- Ascending colon biopsy, C- Transverse colon biopsy, D- Descending and sigmoid biopsy, E- Rectum biopsy MICROSCOPIC DIAGNOSIS A. Cecum, biopsy: * Mildly active chronic colitis. * Architectural changes suggestive of sessile serrated adenoma (low grade dysplasia). B. Ascending colon, biopsy: * Mildly active chronic colitis. * Negative for dysplasia. C. Transverse colon, biopsy: * Mildly active chronic colitis with low grade dysplasia. D. Descending / sigmoid colon, biopsy: * Mildly active chronic colitis. * Negative for dysplasia. E. Rectum, biopsy: * Moderately active chronic colitis. * Negative for dysplasia. MICROSCOPIC DESCRIPTION Slides are reviewed. GROSS DESCRIPTION A. Received in fixative is one container labeled with the patient's name and designated Cecum biopsy. The specimen consists of two irregular fragments of meeks tissue, each measuring 0.5 cm. The specimen is totally submitted in one cassette. B. Received in fixative is one container labeled with the patient's name and designated Ascending colon biopsy. The specimen consists of four irregular fragments of meeks tissue that measure <0.1 to 0.4 cm. Smallest fragment may not survive processing. The specimen is totally submitted in one cassette. C. Received in fixative is one container labeled with the patient's name and designated Transverse colon biopsy. The specimen consists of four irregular fragments of meeks tissue that measure 0.3 to 0.5 cm. The specimen is totally submitted in one cassette. D. Received in fixative is one container labeled with the patient's name and designated Descending and sigmoid biopsy. The specimen consists of multiple irregular fragments of meeks tissue that in aggregate measure 0.9 x 0.4 x 0.1 cm. The specimen is totally submitted in one cassette. E. Received in fixative is one container labeled with the patient's name and designated Rectum biopsy. The specimen consists of multiple irregular fragments of meeks tissue that in aggregate measure 0.8 x 0.4 x 0.1 cm. The specimen is totally submitted in one cassette. MO 01/02/2025 [facility]:[id number] ADDENDUM ADDENDUM ADDENDUM ADDENDUM ADDENDUM ADDENDUM ADDENDUM ADDENDUM ADDENDUM ADDENDUM ADDENDUM ADDENDUM ADDENDUM ADDENDUM ADDENDUM ADDENDUM ADDENDUM ADDENDUM ADDENDUM ADDENDUM ADDENDUM ADDENDUM ADDENDUM 02/25/2025 10:38 ADDENDUM 02/25/2025 10:38 ADDENDUM 02/25/2025 10:38 ADDENDUM 02/25/2025 10:38 ADDENDUM 02/25/2025 10:38 This addendum is added to incorporate an outside pathology consultation report. The case was examined at [facility] by Dr. Christianson (#[id number]) and the following diagnosis was rendered. A. Cecum, biopsy: Chronic mildly active colitis with low-grade dysplasia and a rare crypt rupture granuloma. B. Ascending colon, biopsy: Chronic mildly active colitis. Negative for granuloma and dysplasia. C. Transverse colon, biopsy: Chronic mildly active colitis with low-grade dysplasia. Negative for granuloma.D. Descending / sigmoid colon, biopsy: Chronic severely active colitis with focal erosion. Negative for granuloma and dysplasia. E. Rectum, biopsy: Chronic severely active colitis with focal erosion and prominent lymphoid aggregates. Negative for granuloma and dysplasia. Please see complete above mentioned consultation report in EMR
--- NOTE | 2025-01-02 11:41 | OP.PROVAT_ITS ---
01/02/2025 Wilmer Alexander Do Re : Colonoscopy procedure for Toan Huff Dear Dr. Alexander This procedure was performed on Thursday, January 02, 2025. My impressions and recommendations are as follows: Impressions : - Preparation of the colon was fair. - Pancolitis ulcerative colitis with UCEIS total score of 7 (severe disease), worsened since last examination. Biopsied. - Stool in the recto-sigmoid colon, in the sigmoid colon, in the descending colon, at the splenic flexure, in the transverse colon and at the hepatic flexure. Fluid aspiration performed. - Diverticulosis in the recto-sigmoid colon, in the sigmoid colon and in the descending colon. Recommendations : - Discharge patient to home. - Resume previous diet. - Continue present medications. - Await pathology results. -Initiate biologic therapy - Repeat colonoscopy in 6 months to assess disease activity. My findings are described in the full procedure note, which is enclosed. If I can be of further assistance, please feel free to contact me at . Sincerely, Jamie Maria DO 01/02/2025 11:41:00 AM This report has been signed electronically.
--- NOTE | 2025-01-02 11:41 | OP.COLON_ITS ---
Patient Name: Toan Huff Procedure Date: 01/02/2025 11:10 AM Date of : 1955 Age: 69 Procedure: Colonoscopy Indications: Left-sided chronic ulcerative colitis Providers: Jamie Maria DO Referring MD: Wilmer Menendez Medicines: Monitored Anesthesia Care Patient Profile: This is a 69 year old male. Refer to note in patient chart for documentation of history and physical. Last Colonoscopy: 1 year ago. Complications: No immediate complications. Procedure: Pre-Anesthesia Assessment: - Prior to the procedure, a History and Physical was performed, and patient medications and allergies were reviewed. The patient is competent. The risks and benefits of the procedure and the sedation options and risks were discussed with the patient. All questions were answered and informed consent was obtained. Patient identification and proposed procedure were verified by the physician in the pre-procedure area. Mental Status Examination: alert and oriented. Airway Examination: normal oropharyngeal airway and neck mobility. Respiratory Examination: clear to auscultation. CV Examination: normal. Prophylactic Antibiotics: The patient does not require prophylactic antibiotics. Prior Anticoagulants: The patient has taken no anticoagulant or antiplatelet agents except for NSAID medication. ASA Grade Assessment: II - A patient with mild systemic disease. After reviewing the risks and benefits, the patient was deemed in satisfactory condition to undergo the procedure. The anesthesia plan was to use monitored anesthesia care (MAC). Immediately prior to administration of medications, the patient was re-assessed for adequacy to receive sedatives. The heart rate, respiratory rate, oxygen saturations, blood pressure, adequacy of pulmonary ventilation, and response to care were monitored throughout the procedure. The physical status of the patient was re-assessed after the procedure. After I obtained informed consent, the scope was passed under direct vision. Throughout the procedure, the patient's blood pressure, pulse, and oxygen saturations were monitored continuously. The Colonoscope was introduced through the anus and advanced to the cecum, identified by appendiceal orifice and ileocecal valve. The colonoscopy was performed without difficulty. The patient tolerated the procedure well. The quality of the bowel preparation was fair. The ileocecal valve, appendiceal orifice, and rectum were photographed. Scope In: 11:21:41 AM Scope Withdrawal Time 0 hours 9 minutes 55 seconds Scope Out: 11:34:57 AM Total Procedure Duration Time 0 hours 13 minutes 16 seconds Findings: The perianal and digital rectal examinations were normal. Inflammation was found in a continuous and circumferential pattern from the anus to the cecum. This was graded using the Ulcerative Colitis Endoscopic Index of Severity (UCEIS): complete obliteration of vascular pattern (2), moderate or severe luminal bleeding (3), deep ulcers (3), with UCEIS total score of 7 (severe disease). When compared to the previous examination, the findings are worsened. Biopsies were taken with a cold forceps for histology. Verification of patient identification for the specimen was done. Estimated blood loss was minimal. A moderate amount of stool was found in the recto-sigmoid colon, in the sigmoid colon, in the descending colon, at the splenic flexure, in the transverse colon and at the hepatic flexure. Fluid aspiration was performed through the scope suction channel. The amount of fluid collected was 60 mL. Sample(s) were sent for bacterial cultures, Clostridium difficile and Gram stain. Verification of patient identification for the specimen was done. Estimated blood loss was minimal. A few small-mouthed diverticula were found in the recto-sigmoid colon, sigmoid colon and descending colon. Impression: - Preparation of the colon was fair. - Pancolitis ulcerative colitis with UCEIS total score of 7 (severe disease), worsened since last examination. Biopsied. - Stool in the recto-sigmoid colon, in the sigmoid colon, in the descending colon, at the splenic flexure, in the transverse colon and at the hepatic flexure. Fluid aspiration performed. - Diverticulosis in the recto-sigmoid colon, in the sigmoid colon and in the descending colon. Recommendation: - Discharge patient to home. - Resume previous diet. - Continue present medications. - Await pathology results. -Initiate biologic therapy - Repeat colonoscopy in 6 months to assess disease activity. Procedure Code(s): --- Professional --- 57403, Colonoscopy, flexible; with biopsy, single or multiple CPT copyright 2021 [employer]. All rights reserved. The codes documented in this report are preliminary and upon coating machine helper review may be revised to meet current compliance requirements. Jamie Maria DO 01/02/2025 11:41:00 AM This report has been signed electronically. Number of Addenda: 0 Note Initiated On: 01/02/2025 11:10 AM
--- NOTE | 2025-01-02 11:57 | PCM.POST.ANE ---
Anesthesia: Postop Eval I Current Vital Signs Temperature: 97.6 F Pulse Rate: 76 Blood Pressure: 107/77 Respiratory Rate: 16 Pulse Ox: 98 Oxygen Delivery Method: Room Air Assessment Airway patent: Yes Spontaneous unlabored respirations: Yes Mental status: Asleep nausea: No Vomiting: No Anesthesia Complication: No Fluid Hydration Crystalloid volume administer (ml): 500 Total IV fluid infused: 500 Progress Note Anesthesia document: Postop Eval 1 completed: Yes
--- NOTE | 2025-01-02 15:34 | PCM.POSTANE2 ---
Anesthesia Postop Eval I Sum Postop Eval Completion status Anesthesia document: Postop Eval 1 completed: Yes Anesthesia Postop Eval I Summary Anesthesia Postop Eval I Summary: Anesthesia Postop Eval I: Assessment Summary Airway patent Yes 01/02/25 11:59 [email or web address] Spontaneous unlabored Yes 01/02/25 11:59 [email or web address] respirations Mental status Asleep 01/02/25 11:59 [email or web address] nausea No 01/02/25 11:59 [email or web address] Vomiting No 01/02/25 11:59 [email or web address] Anesthesia Postop Eval I: Fluid Summary Crystalloid volume administer 500 01/02/25 11:59 [email or web address] (ml) Colloids volume administered ( ml) Blood Product volume administered (ml) Total IV fluid infused 500 01/02/25 11:59 [email or web address] Anesthesia Postop Eval I: Summary Notes Anesthesia Complication No 01/02/25 11:59 [email or web address] Anesthesia Complication Comment: Post-operative progress note Anesthesia: Postop Eval II Evaluation Mental status: Awake and Calm Pain Level: 0 nausea: No Vomiting: No Complications Anesthesia Complication: No
== END 2025-01-02 12:36 | disposition home or self-care (01) ==
LOC: EN 10:10 → AC 10:11
PROVIDERS: Student in an Organized Health Care Education/Training Program; Referring Provider Internal Medicine; Visit Provider Internal Medicine Gastroenterology
PROC: 0DJD8ZZ Inspection of Lower Intestinal Tract, Via Natural or Artificial Opening Endoscopic (ICD-10-PCS; CPT 45378; principal; 2025-01-02 11:10)
DX: K51.00 Ulcerative (chronic) pancolitis without complications (principal); E11.9 Type 2 diabetes mellitus without complications; K57.30 Diverticulosis of large intestine without perforation or abscess without bleeding; I10 Essential (primary) hypertension; Z87.891 Personal history of nicotine dependence; Z79.899 Other long term (current) drug therapy; D12.6 Benign neoplasm of colon, unspecified
CPT/HCPCS: 45380; 36415; 80053; 82962; 87493; 87506; 88305; J2405

== ENCOUNTER → 2025-01-10 | Outpatient (CLI) | payer MEDICARE, OTHER, SELFPAY ==
[2025-01-10 11:25] LABS: AST(SGOT) 11 U/L (<=37); Alanine Aminotransfer ALT/SGPT 8 U/L (<=46); Albumin, Serum 3.1 g/dL (3.4-4.8); Alkaline Phosphatase 98 U/L (40-129); Anion Gap 11 (5-15); BUN 10 mg/dL (4-19); BUN/Creat Ratio 13.6 RATIO (10-20); Calcium,Total 8.5 mg/dL (7.6-11.0); Carbon Dioxide 22.3 mmol/L (21.0-32.0); Chloride 101 mmol/L (98-108); Globulin 3.7 g/dL (2.2-4.2); Glucose 117 mg/dL (70-99); Potassium 4.2 mmol/L (3.3-5.1)
== END | disposition home or self-care (01) ==
LOC: LAB 09:16
PROVIDERS: Referring Provider Student in an Organized Health Care Education/Training Program; Visit Provider Student in an Organized Health Care Education/Training Program
DX: E87.6 Hypokalemia (principal)
CPT/HCPCS: 36415; 80053

== ENCOUNTER → 2025-01-18 | Outpatient (CLI) | payer MEDICARE, OTHER, SELFPAY ==
[2025-01-18 10:43] LABS: Potassium 3.8 mmol/L (3.3-5.1)
== END | disposition home or self-care (01) ==
LOC: LAB 09:27
PROVIDERS: Referring Provider Student in an Organized Health Care Education/Training Program; Visit Provider Student in an Organized Health Care Education/Training Program
DX: D12.6 Benign neoplasm of colon, unspecified (principal); K51.911 Ulcerative colitis, unspecified with rectal bleeding
CPT/HCPCS: 36415; 84132